=== PATIENT | male | born 1945 | race Caucasian/White ===

== ENCOUNTER 2019-02-26 07:58 | Inpatient (IN) ==
[2019-02-26] MEDS ORDERED: Naloxone 0.4 MG/ML INJ IVP PRN (10:36)
[2019-02-26] MEDS ORDERED: *HR* Dextrose 50 % in Water (Syg) 50 ML SYRINGE IVP PRN (10:41)
[2019-02-26] MEDS ORDERED: Dextrose Gel 15 GM/37.5 ML TUBE PO PRN ×2 (10:41)
[2019-02-26] MEDS ORDERED: D5% in Water 1,000 ML IVC PRN (10:41)
[2019-02-26] MEDS: Furosemide 40 MG/4 ML VIAL IVP SCH (11:30)
--- NOTE | 2019-02-26 12:00 | Pulmonology History & Physical ---
<BiToby Ortega - Last Filed: 02/26/19 17:03> Date of Encounter: 02/26/19 Time of Encounter: 09:45 Assessment and Plan (1) Acute and chronic respiratory failure Current visit: Yes Status: Acute Presented to [place] ED complaining of increased shortness of breath Known COPD on 2lpm O2 at home Also known CHF with severe aortic and mitral stenosis Arrived to [facility] on 5lpm supplemental O2 via oxymask CXR from [place] showed left sided pleural effusion with bilateral pulmonary edema Performed diagnostic and therapeutic thoracentesis with removal of 1200mL straw colored pleural fluid Pt weaned down to 3lpm supplemental O2 at that time At approximately 1350 the patient became acutely confused and combative. This provider evaluated the patient and found him to be alert and oriented only to self. This was a change compared to earlier where he was A&O3 and able to recall previous events. Blood glucose level was checked at bedside and found to be 229. EKG was ordered, with no significant changes, but noted baseline ST segment changes suggestive of previous anterolateral ischemia. Repeat labs were significant for improved leukocytosis to 11.9, and troponin of 0.14 CT head was negative for intracranial abnormality. Repeat ABG showed improved hypercapnia with pCO2 of 47 Pt was started on Rocephin for UTI. Serial troponins ordered. Repeat EKG this evening. Pt denies any current chest pain. Continue supplemental O2. 40mg IV Lasix daily at this time for diuresis Qualifiers: Respiratory failure complication: hypercapnia Qualified Code(s): J96.22 - Acute and chronic respiratory failure with hypercapnia (2) Recurrent left pleural effusion Current visit: Yes Status: Acute Thoracentesis as above Fluid culture pending - preliminary reading showed many WBC, and no bacteria Pleural fluid cytology pending Pleural fluid analysis suggestive of transudative effusion Subsequent CXR showed improvement in left pleural effusion (3) Altered mental status Current visit: Yes Status: Acute Patient became acutely altered at 1350 this afternoon Patient's was at bedside does report patient has intermittent confusion, particularly worse in the evenings and at night Patient's also reports "I have been meaning to talk to her family doctor about this" CT head negative for acute intracranial abnormality as above Labs were repeated which were significant for slightly elevated troponin of 0.14 EKG showed no significant changes when compared to previous. Patient denied any complaints of chest pain May be related to UTI versus hypercapnia versus chronic underlying dementia Receiving 1 g of Rocephin IV daily Patient was initially given 5 mg of Haldol via IV. However patient did not respond to this. EKG also showed QT prolongation at 461 ms. Subsequent sedation consisted of 1 mg [address] We will place prn order for Ativan for further agitation with prolonged QT. Qualifiers: Altered mental status type: unspecified Qualified Code(s): R41.82 - Altered mental status, unspecified (4) CHF exacerbation Current visit: Yes Status: Acute Echo from 11/26/18 which showed LVEF 55% with indeterminate diastolic dysfunction. This echo also demonstrated severe aortic stenosis with possible aortic regurgitation. Moderate mitral stenosis was also appreciated. Diuresis as above Fluid restricted diet 1.5 L fluid. Salt restricted diet Qualifiers: Heart failure type: combined systolic and diastolic Qualified Code(s): I50.43 - Acute on chronic combined systolic (congestive) and diastolic (congestive) heart failure (5) Elevated troponin Current visit: Yes Status: Acute Initial troponin from prior ED was negative, however repeat during episode of confusion was elevated at 0.14 EKG showed no acute changes Patient denied chest pain Suspect this is related to demand ischemia with respiratory failure We will continue to trend and monitor for any chest pain. (6) UTI (urinary tract infection) Current visit: Yes Status: Acute As seen on urinalysis from [facility] Urine culture was sent at [facility] - will await results Initiate Rocephin 1 g daily via IV Qualifiers: Urinary tract infection type: site unspecified Hematuria presence: with hematuria Qualified Code(s): N39.0 - Urinary tract infection, site not specified; R31.9 - Hematuria, unspecified (7) COPD exacerbation Current visit: Yes Status: Acute Suspect related to large left pleural effusion Thoracentesis of the above Scheduled DuoNeb's (8) Anemia Current visit: Yes Status: Chronic Appears chronic Continue to monitor Qualifiers: Anemia type: due to chronic kidney disease Chronic kidney disease stage: stage 3 (moderate) Qualified Code(s): N18.3 - Chronic kidney disease, stage 3 (moderate); D63.1 - Anemia in chronic kidney disease (9) Diabetes Current visit: Yes Status: Chronic Hold home diabetes medication regimen Diabetic diet along with fluid restriction and salt restriction diet. 50 units Levemir at night as patient takes at home Medium dose sliding scale insulin before meals and at bedtime Qualifiers: Diabetes mellitus type: type 2 Diabetes mellitus shelter insulin use: with ferry terminal agent use Diabetes mellitus complication status: with kidney complications Diabetes mellitus complication detail: with chronic kidney disease Chronic kidney disease stage: stage 3 (moderate) Qualified Code(s): E11.22 - Type 2 diabetes mellitus with diabetic chronic kidney disease; N18.3 - Chronic kidney disease, stage 3 (moderate); Z79.4 - terminologist (current) use of insulin (10) Severe aortic stenosis Current visit: Yes Status: Chronic As demonstrated on echocardiogram from 11/26/18 (11) CKD (chronic kidney disease) stage 3, GFR 30-59 ml/min Current visit: Yes Status: Chronic Known history Appears stable with current labs Continue to monitor (12) DVT prophylaxis Current visit: Yes Status: Acute Subcutaneous heparin History of Present Illness Chief complaint: Shortness of breath HPI: Mr. Cross is a 73 year old male with PMH of CHF, severe aortic stenosis, mitral stenosis, COPD, diabetes, CKD stage 3, and follicular lymphoma. He originally presented to [place] ED earlier today complaining of shortness of b reath. During this encounter the patient is A&Ox3 and able to recall all events of the morning. Pt's is at bedside to confirm. Pt states he awoke earlier this morning and felt short of breath. He does report a persistent dry cough. Denies any sputum production. Denied any recent illness, chest pain, headaches, numbness or tingling. He is on 2 L supplemental O2 at home, but subsequently tu rned up the oxygen to 3 L/m to attempt to help with his shortness of breath. However this was unsuccessful and the patient subsequently asked his to take him to the ED. Chest x-ray was obtained at [place] ED which showed a moderate to large left pleural effusion along with pulmonary edema. Labs were significant for a leukocytosis of 6.2, ABG showing hypercapnia with PCO2 71, however pH was 7.33. Chemistries showed stable CKD stage III, normal lactic acid, and negative troponin. BNP was slightly elevated at 611. Urinalysis was suggestive of a UTI with large blood and positive leukocyte esterase, reflex culture was sent to the lab. Upon patient arrival to our facility, he is on 5 L/m home oxygen via Oxy mask. He reports improvement in his shortness of breath. He continues to any chest pain. Reports coughing has resolved at this time. Patient does report he has a history of follicular lymphoma. States his last chemotherapy treatment was approximately 2-3 years ago. He also reports that he had to have some "fluid drained off his abdomen" during that time period but states the drain was pulled approximately 2-3 years ago "because no more fluid was coming out". Past Med Surg Social Fam HX - Past Medical History Medical history: arthritis, cancer, diabetes, hypertension, renal disease, valvular heart disease, other Additional medical history: Follicula lymphoma. 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 Ascites. Hyperuricemia. Hyponatremia. Hyperkalemia. Aortic stenosis. Glueosuria Psychiatric history: no psych history - Past Surgical History Surgical History: other Additional surgical history: eye surg, right wrist surgery, A-PORT, cancer testing - Social History Smoking Status: Former smoker Smokeless Tobacco Status: No Alcohol use: none Drug use: none - Family History Daughter Hx Family Cancer: Yes (Breast) Mother Adopted: No Family Member Ethnicity: Non- Living Status: Still Living Hx Family Cardiac Disorders: Yes (CAD with stents) Hx Family Respiratory Disorders: No Hx Family Cancer: No Hx Family GI Disorders: No Hx Family Endocrine Disorder: Yes Hx Family Neuromuscular Disorders: No Hx Family Neurologic Disorders: No Hx Family HEENT Disorders: No Hx Family Autoimmune Disorders: No Father Adopted: No Family Member Ethnicity: Non- Living Status: Hx Family Cardiac Disorders: No Hx Family Respiratory Disorders: No Hx Family Cancer: Yes (Lung) Hx Family GI Disorders: No Hx Family Endocrine Disorder: No Hx Family Neuromuscular Disorders: No Hx Family Neurologic Disorders: No Hx Family HEENT Disorders: No Hx Family Autoimmune Disorders: No Medications and Allergies Ascorbic Acid [Vitamin C] 1,000 mg PO DAILY 11/06/18 [History] Aspirin 81 mg PO DAILY 11/06/18 [History] Cholecalciferol (D-3) [Vitamin D] 5,000 unit PO DAILY 11/06/18 [History] Docusate [Colace] 100 mg PO BID 11/06/18 [History] Fluticasone/Vilanterol [Breo Ellipta 100-25 Mcg INH] 1 puff IH DAILY 11/06/18 [History] Insulin Glargine,Hum.rec.anlog [Basaglar Kwikpen U-100] 50 unit SQ HS 11/06/18 [History] Insulin Regular, Human [Novolin R] 0 unit SQ TIDWM 11/06/18 [History] Multivitamin [One Daily] 1 tab PO DAILY 11/06/18 [History] Gravelly-3/Dha/Epa/Fish Oil [Fish Oil 1,000 mg Softgel] 1 cap PO BID 11/06/18 [History] Ondansetron HCl [Zofran] 4 mg PO Q6H PRN 11/06/18 [History] Pantoprazole Sodium [Protonix] 40 mg PO DAILY 11/06/18 [History] Prochlorperazine Maleate [Compazine] 10 mg PO Q6HR PRN 11/06/18 [History] Spironolactone [Aldactone] 100 mg PO DAILY 11/06/18 [History] Cinnamon Bark [Cinnamon] 1,000 mg PO DAILY 11/26/18 [History] DiphenhydraMINE [Benadryl] 50 mg PO BID 11/26/18 [History] Gabapentin [Neurontin] 300 mg PO TID 11/26/18 [History] Tamsulosin HCl [Flomax] 0.4 mg PO DAILY 11/26/18 [History] Albuterol Neb [Proventil Neb] 2.5 mg IH Q2H PRN #1 inhsol 12/02/18 [Rx] Nadolol [Corgard] 20 mg PO DAILY #60 tablet 12/02/18 [Rx] Oxycodone HCl 15 mg PO BID 30 Days #60 tablet 02/18/19 [Rx] Furosemide [Lasix] 40 mg PO Q2D 02/26/19 [History] Allergy/AdvReac Type Severity Reaction Status Date / Time band-aids AdvReac Blister Uncoded 12/13/18 14:42 All Systems: The remainder of the systems were reviewed and are negative - Constitutional Constitutional: no chills, no fever(s), no headache(s), no weakness - EENT Eyes: no loss of vision, no photophobia - Cardiovascular Cardiovascular: dyspnea, no chest pain, no diaphoresis, no edema, no irregular heart rhythm, no lightheadedness, no palpitations - Respiratory Respiratory: cough, dyspnea, wheezing, no hemoptysis, no chest congestion, no excessive phlegm production, no change in phlegm color - Gastrointestinal Gastrointestinal: no abdominal pain, no nausea, no vomiting - Genitourinary Genitourinary: no dysuria, no flank pain, no hematuria - Musculoskeletal Musculoskeletal: no weakness, no numbness, no tingling - Integumentary Integumentary: no erythema, no rash, no jaundice - Neurological Neurological: no headache(s), no numbness, no tingling, no weakness - Hematologic/Lymphatic Hematologic/Lymphatic: no easy bleeding, no easy bruising Physical Examination Vital Signs: Vital Signs, Last 4 Hours Temp Pulse Resp BP Pulse Ox 02/26/19 11:47 98.0 F 02/26/19 11:00 62 14 127/63 98 02/26/19 10:30 65 02/26/19 10:00 63 16 137/74 96 02/26/19 09:46 96.8 F L 66 18 135/98 95 General appearance: no acute distress, alert Eyes: nonicteric Effort: normal Inspection: normal Auscultation: bilateral: diminished breath sounds (left > right ) Cardiovascular: regular rate and rhythm Gastrointestinal: soft, non-tender, non-distended Integumentary: normal Extremities: no cyanosis, no edema, no clubbing, pink and warm, pulses normal Musculoskeletal: no deformities normal mental status, non-focal exam, pupils equal and round mood appropriate, affect normal Results - Laboratory Findings CBC and BMP: 02/26/19 14:25 02/26/19 14:25 - Diagnostic Findings Chest x-ray: report reviewed, image reviewed <Ann-Marie Patel - Last Filed: 02/26/19 21:43> Date of Encounter: 02/26/19 History of Present Illness HPI: Mr. Cross is a 73 year old male All Systems: The remainder of the systems were reviewed and are negative Physical Examination Vital Signs: Vital Signs, Last 4 Hours Temp Pulse Resp BP Pulse Ox 02/26/19 19:45 58 02/26/19 19:00 60 16 111/55 97 02/26/19 18:50 98.7 F 02/26/19 18:00 57 15 139/89 95 Results - Laboratory Findings CBC and BMP: 02/26/19 14:25 02/26/19 14:25 ABG ABG pH 7.49 pH Units (7.32-7.45) H 02/26/19 14:23 ABG pCO2 47 mmHg (35-45) H 02/26/19 14:23 ABG pO2 80 mmHg (85-104) L 02/26/19 14:23 ABG O2 Saturation 96 % (95-98) 02/26/19 14:23 Abnormal lab findings: Abnormal lab results WBC 11.9 K/mcL (4.3-11.1) H 02/26/19 14:25 RBC 3.84 M/mcL (4.19-5.50) L 02/26/19 14:25 Hgb 11.3 g/dL (12.9-16.9) L 02/26/19 14:25 Hct 33.9 % (37.5-50.1) L 02/26/19 14:25 ABG pH 7.49 pH Units (7.32-7.45) H 02/26/19 14:23 ABG pCO2 47 mmHg (35-45) H 02/26/19 14:23 ABG pO2 80 mmHg (85-104) L 02/26/19 14:23 ABG HCO3 35 mEq/L (21-27) H 02/26/19 14:23 ABG Total CO2 37 mEq/L (20-26) H 02/26/19 14:23 ABG Base Excess 11 mEq/L (-2 to 3) H 02/26/19 14:23 Sodium 135 mEq/L (136-145) L 02/26/19 14:25 Chloride 93 mEq/L (98-107) L 02/26/19 14:25 Carbon Dioxide 36 mEq/L (23-29) H 02/26/19 14:25 1.40 mg/dL (0.70-1.30) H 02/26/19 14:25 Est GFR (Non-Af Amer) 50 (> 60) L 02/26/19 14:25 Glucose 223 mg/dL (70-105) H 02/26/19 14:25 POC Glucose 192 mg/dL (70-99) H 02/26/19 19:24 139 Units/L (140-271) L 02/26/19 12:14 0.14 ng/mL (< 0.04) H* 02/26/19 14:25 B-Natriuretic Peptide 698 pg/mL (Less than 100) H 02/26/19 14:25 5.8 g/dL (6.4-8.9) L 02/26/19 14:25 2.3 g/dL (2.4-3.5) L 02/26/19 14:25 - Attending Attestation I saw and evaluated this patient and my medical decision-making was reviewed with the Resident Physician. I agree with the documented findings, disposition and treatment plan as described except to the extent set forth below. We independently had [id number] contact with the patient I spent 35 minutes of Critical Care time with this patient. It involved decision making of high complexity to assess, manipulate, and support vital organ system failure and/or to prevent further life threatening deterioration of the patient's condition. The time involved in the performance of separately reportable procedures was not counted toward critical care time. Patient seen and examined at bedside Labs, radiology, chart personally reviewed. Management was reviewed during multidisciplinary critical care rounds. PERFORMANCE IMPROVEMENT ANALYST: Patient was conscious oriented before I did do a thoracentesis during the afternoon patient got acutely confused so history of delirium patient has bas valerio dementia patient got some Haldol which did not respond well patient was put on Ativan as patient is prolonged QT. Patient is CT head that was no acute intracranial abnormality. Pulm: Patient developed acute on chronic hypoxic respiratory failure patient has baseline COPD, diastolic heart failure patient has enlarged left-sided the moderately large pleural effusion patient had a therapeutic thoracentesis with 1.2 L of straw-colored fluid was removed most likely secondary to heart failure. Patient fluid fluid was sent for studies Cards: Patient is similarly stable patient has a severe aortic stenosis with some mitral stenosis with some diastolic heart failure with no pulmonary hypertension. FEN-GI: Advance diet as tolerated Renal: Labs and output were reviewed ID: No evidence of active infection Heme/Onc: Labs reviewed Endo: Glucose Monitored Integ/MSK: Skin Care per routine ICU Nursing Protocol to prevent ulcers. Lines: All lines examined without evidence of infection : Dispo: high chance of respiratory decline we will keep him in the ICU tonight and will send him to medical telemetry tomorrow CODE: Full code
--- NOTE | 2019-02-26 12:02 | Procedure Note ---
<Toby Pat - Last Filed: 02/26/19 12:00> Date of procedure: 02/26/19 Pre-op diagnosis: Left pleural effusion Post-op diagnosis: same Procedure: Date:02/26/19 Time: 1145 Indication: Large pleural effusion Resident: Toby Pat DO Attending: Dr. Patel A time-out was completed verifying correct patient, procedure, site, positioning, and special equipment if applicable. The patients left side was prepped and draped in a sterile manner after the appropriate infiltration level was confirmed by ultrasound. 1% lidocaine was used anesthetize the surrounding skin. A finder needle was then used to locate fluid and clear yellow fluid was obtained. A 10-blade scalpel used to make the incision. The thoracentesis catheter was then threaded without difficulty. The patient had 1200mL of clear yellow fluid removed. Dr Patel was present for the entire procedure. A post- procedure chest x-ray was ordered and the fluid will be sent for several studies. Estimated Blood Loss: 0mL The patient tolerated the procedure well and there were no complications. Anesthesia: local Surgeon: Toby Pat Was there an dietary assistant present: Yes Medicine Man: Ann-Marie Patel Estimated blood loss (cc): 0 Specimen: Pleural fluid Condition: stable Disposition: no change <Ann-Marie Patel - Last Filed: 02/26/19 21:31> Procedure: I was present during the entire procedure and assisted in critical portion of the procedure.
[2019-02-26 12:52] LABS: Lactate Dehydrogenase 139 Units/L (140-271); Total Protein 6.2 g/dL (6.4-8.9)
[2019-02-26 13:49] LABS: RBC,Pleural Fluid < 0.002 M/mcL
[2019-02-26] MEDS ORDERED: Haloperidol Lactate 5 MG/ML VIAL ONE (14:02)
[2019-02-26] MEDS ORDERED: Haloperidol Lactate 5 MG/ML VIAL IVP ONE (14:11)
[2019-02-26 14:26] LABS: ABG Base Excess 11 mEq/L (-2 to 3); ABG HCO3 35 mEq/L (21-27); ABG Oxygen Saturation 96 % (95-98); ABG PCO2 47 mmHg (35-45); ABG PH 7.49 pH Units (7.32-7.45); ABG PO2 80 mmHg (85-104); ABG TCO2 37 mEq/L (20-26)
[2019-02-26 14:40] LABS: Basophils # 0.1 K/mcL (0.0-0.2); Basophils % 0.4 %; Eosinophils % 0.3 %; Hematocrit 33.9 % (37.5-50.1); Hemoglobin 11.3 g/dL (12.9-16.9); Immature Granulocytes % 0.4 % (0-4); Lymphocytes # 1.9 K/mcL (0.6-4.6); Lymphocytes % 15.8 %; Mean Corpuscular HGB Conc 33.3 g/dL (31.6-35.5); Mean Corpuscular Hemoglobin 29.4 pg (28.0-33.3); Mean Corpuscular Volume 88.3 fL (83.0-100.0); Mean Platelet Volume 9.5 fL (9.4-12.4); Monocytes # 1.2 K/mcL (0.0-1.3); Monocytes % 10.3 %; Neutrophils # 8.6 K/mcL (1.6-8.9); Platelet Count 144 K/mcL (140-400); Red Blood Count 3.84 M/mcL (4.19-5.50); Segmented Neutrophils % 72.8 %; White Blood Count 11.9 K/mcL (4.3-11.1)
[2019-02-26] MEDS ORDERED: *HR* LORazepam 2 MG/ML VIAL IVP ONE (14:40)
[2019-02-26 14:58] LABS: Total Protein,Pleural Fluid 3.1 g/dL
[2019-02-26 15:06] LABS: BUN/Creatinine Ratio 13 (6-26); Blood Urea Nitrogen 18 mg/dL (8-23); Calcium 10.3 mg/dL (8.6-10.3); Carbon Dioxide 36 mEq/L (23-29); Chloride 93 mEq/L (98-107); Glucose 223 mg/dL (70-105); Osmolality,Calculated 289 (280-300); Potassium 4.4 mEq/L (3.5-5.1); Sodium 135 mEq/L (136-145); Troponin I 0.14 ng/mL (< 0.04); eGFR For African Americans > 60 (> 60); eGFR For Non-African Americans 50 (> 60)
[2019-02-26 15:18] LABS: Appearance of Pleural Fl Clear (Clear)
[2019-02-26] MEDS: cefTRIAXone 1,000 MG in Water for inj. (sterile) 20 ML 10 ML IVP SCH (15:25)
[2019-02-26] MEDS: Ipratropium/Albuterol Neb 3 ML IH SCH ×2 (15:33→22:31)
[2019-02-26] MEDS ORDERED: *HR* LORazepam 2 MG/ML VIAL IVP PRN (17:41)
[2019-02-26] MEDS: Insulin LISPRO 300 UNITS/3 ML VIAL SQ SCH (17:58)
[2019-02-26 18:01] LABS: Alanine Aminotransferase 7 Units/L (7-52); Albumin 3.5 g/dL (3.5-5.7); Albumin/Globulin Ratio 1.5 (1.1-2.2); Alkaline Phosphatase 43 Units/L (34-104); Aspartate Amino Transferase 17 Units/L (13-39); Bilirubin,Direct 0.1 mg/dL (0.0-0.2); Bilirubin,Indirect 0.6 mg/dL (0.0-1.2); Bilirubin,Total 0.7 mg/dL (0.3-1.0); Globulin 2.3 g/dL (2.4-3.5); Total Protein 5.8 g/dL (6.4-8.9)
[2019-02-26] MEDS ORDERED: Insulin DETEMIR 100 UNIT/ML X5UNITS SQ SCH (21:00)
[2019-02-26] MEDS ORDERED: Insulin LISPRO 300 UNITS/3 ML VIAL SQ SCH (21:00)
[2019-02-26] MEDS: *HR* Heparin 5,000 UNIT/ML VIAL SQ SCH (22:23)
[2019-02-27] MEDS: Ipratropium/Albuterol Neb 3 ML IH SCH ×4 (04:00→22:42)
[2019-02-27] MEDS: *HR* Heparin 5,000 UNIT/ML VIAL SQ SCH ×3 (05:12→21:28)
[2019-02-27 06:32] LABS: Basophils # 0.1 K/mcL (0.0-0.2); Basophils % 0.5 %; Eosinophils # 0.1 K/mcL (0.0-0.6); Hematocrit 35.5 % (37.5-50.1); Hemoglobin 11.5 g/dL (12.9-16.9); Immature Granulocytes % 0.4 % (0-4); Lymphocytes # 1.8 K/mcL (0.6-4.6); Lymphocytes % 17.2 %; Mean Corpuscular HGB Conc 32.4 g/dL (31.6-35.5); Mean Corpuscular Volume 89.4 fL (83.0-100.0); Mean Platelet Volume 9.6 fL (9.4-12.4); Monocytes # 1.2 K/mcL (0.0-1.3); Monocytes % 11.7 %; Neutrophils # 7.2 K/mcL (1.6-8.9); Platelet Count 138 K/mcL (140-400); Red Blood Count 3.97 M/mcL (4.19-5.50); Red Cell Distribution Width 13.1 % (11.5-14.5); Segmented Neutrophils % 69.2 %; White Blood Count 10.4 K/mcL (4.3-11.1)
--- NOTE | 2019-02-27 06:54 | Pulmonology Progress Note ---
<ScottPatrick S - Last Filed: 02/27/19 10:37> Date of Encounter: 02/27/19 Time of Encounter: 08:03 Assessment and Plan (1) Acute and chronic respiratory failure Current Visit: Yes Status: Acute Pt presented to [facility] on 02/26 with shortness of breath as a [place] transfer - known hx of COPD on 2L home oxygen - also known hx of CHF with severe and MS XR chest at [place] showed left sided pleural effusion with bilateral pulmonary edema Once arrived to [facility], he had diagnostic thoracentesis 1200cc straw colored pleural fluid removed Per Light's criteria, the pleural effusion meets one of Light's criteria vs psuedoexudative from recent diuretics Plan: - awaiting cytology results from thoracentesis - continue supplemental O2 to keep O2 sat >88% - telemetry monitoring - VS per unit protocol - duonebs prn - continue 40mg IVP lasix - plan for today is to move the pt out of the ICU to a step down unit or telemetry floor Qualifiers: Respiratory failure complication: hypercapnia Qualified Code(s): J96.22 - Acute and chronic respiratory failure with hypercapnia (2) Congestive heart failure Current Visit: Yes Status: Acute Acute exacerbation of CHF Echo from 11/26/18 which showed LVEF 55% with indeterminate diastolic dysfunction - demonstrated severe aortic stenosis with possible aortic regurgitation - Moderate mitral stenosis was also appreciated. Plan: - Diuresis as above - Fluid restricted diet 1.5 L fluid. - Salt restricted diet - cardiology consulted due to missed beats noticed on EKG Qualifiers: Heart failure type: unspecified Heart failure chronicity: acute on chronic Qualified Code(s): I50.9 - Heart failure, unspecified (3) Severe aortic stenosis Current Visit: No Status: Chronic Noted on ECHO previously. (4) COPD exacerbation Current Visit: Yes Status: Acute See plan as above for acute on chronic respiratory failure. Improving. Nearly returned to baseline oxygen demand. (5) Type 2 diabetes mellitus Current Visit: No Status: Chronic Hold home diabetes medication regimen. Diabetic diet along with fluid restriction and salt restriction diet. Hold 50 units Levemir at night that kosta whitten takes at home as he isnt eating much Medium dose sliding scale insulin before meals and at bedtime Qualifiers: Diabetes mellitus halfway insulin use: with halfway use Diabetes mellitus complication status: with circulatory complication Diabetes mellitus complication detail: with other circulatory complications Qualified Code(s): E11.59 - Type 2 diabetes mellitus with other circulatory complications; Z79.4 - penitentiary (current) use of insulin (6) DVT prophylaxis Current Visit: Yes Status: Acute sq heparin (7) Follicular lymphoma Current Visit: No Status: Chronic Chronic. Went thru chemotherapy. Qualifiers: Follicular lymphoma grade: unspecified grade Lymphoma site: unspecified region Qualified Code(s): C82.90 - Follicular lymphoma, unspecified, uns pecified site (8) Acute metabolic encephalopathy Current Visit: Yes Status: Acute Appears to be around his baseline, as described by . CT head negative. EKG does show QTc prolongation, avoid QTc prolonging agents. Ativan given prn. Pt has not become combative again. Likely due to underlying infxn vs ?baseline (9) Recurrent left pleural effusion Current Visit: Yes Status: Acute Likely contributing to respiratory failure. Drained at bedside. See above. (10) UTI (urinary tract infection) Current Visit: Yes Status: Acute UA (+) large blood, leukocyte esterase, WBC. On rocephin day 2. Cultures pending (look from [place] and previous visits as they were collected there). Qualifiers: Urinary tract infection type: site unspecified Hematuria presence: with hematuria Qualified Code(s): N39.0 - Urinary tract infection, site not specified; R31.9 - Hematuria, unspecified Subjective Principal diagnosis: acute and chronic respiratory failure Interval history: Pt seen at bedside this morning. He is without complaint. He does appear to be confused, however, this is reportedly his baseline per the . Objective PUL Vital signs: Last Vital Signs Temp 97.2 F L 02/27/19 03:39 Pulse 67 02/27/19 06:00 Resp 18 02/27/19 06:00 BP 123/74 02/27/19 06:00 Pulse Ox 93 02/27/19 06:00 General appearance: no acute distress Eyes: nonicteric ENT: oropharynx dry Effort: mildly labored Auscultation: bilateral: diminished breath sounds Cardiovascular: regular rate and rhythm Gastrointestinal: soft, non-tender, non-distended Integumentary: normal Extremities: no cyanosis, no edema, no clubbing, pink and warm Musculoskeletal: no deformities normal mental status, non-focal exam anxious Results - Laboratory Findings CBC and BMP: 02/27/19 06:19 02/27/19 06:19 ABG ABG pH 7.49 pH Units (7.32-7.45) H 02/26/19 14:23 ABG pCO2 47 mmHg (35-45) H 02/26/19 14:23 ABG pO2 80 mmHg (85-104) L 02/26/19 14:23 ABG O2 Saturation 96 % (95-98) 02/26/19 14:23 Abnormal lab findings: Abnormal lab results WBC 11.9 K/mcL (4.3-11.1) H 02/26/19 14:25 RBC 3.97 M/mcL (4.19-5.50) L 02/27/19 06:19 Hgb 11.5 g/dL (12.9-16.9) L 02/27/19 06:19 Hct 35.5 % (37.5-50.1) L 02/27/19 06:19 Plt Count 138 K/mcL (140-400) L 02/27/19 06:19 ABG pH 7.49 pH Units (7.32-7.45) H 02/26/19 14:23 ABG pCO2 47 mmHg (35-45) H 02/26/19 14:23 ABG pO2 80 mmHg (85-104) L 02/26/19 14:23 ABG HCO3 35 mEq/L (21-27) H 02/26/19 14:23 ABG Total CO2 37 mEq/L (20-26) H 02/26/19 14:23 ABG Base Excess 11 mEq/L (-2 to 3) H 02/26/19 14:23 Sodium 135 mEq/L (136-145) L 02/26/19 14:25 Chloride 93 mEq/L (98-107) L 02/26/19 14:25 Carbon Dioxide 36 mEq/L (23-29) H 02/26/19 14:25 1.40 mg/dL (0.70-1.30) H 02/26/19 14:25 Est GFR (Non-Af Amer) 50 (> 60) L 02/26/19 14:25 Glucose 223 mg/dL (70-105) H 02/26/19 14:25 POC Glucose 192 mg/dL (70-99) H 02/26/19 19:24 139 Units/L (140-271) L 02/26/19 12:14 0.10 ng/mL (< 0.04) H* 02/26/19 23:47 B-Natriuretic Peptide 698 pg/mL (Less than 100) H 02/26/19 14:25 5.8 g/dL (6.4-8.9) L 02/26/19 14:25 2.3 g/dL (2.4-3.5) L 02/26/19 14:25 - Microbiology Findings Microbiology Findings: Microbiology, Last 48 Hours 02/26/19 11:50 Body Fluid Culture - Preliminary Pleural Fluid - Clinical Findings Intake & Output: Intake & Output 02/26/19 02/26/19 02/27/19 15:59 23:59 07:59 Intake Total 130 / 130 Output Total 750 / 1400 650 / 1400 325 / 325 Balance -620 / -1270 -650 / -1270 -325 / -325 Weight 93.3 kg 95.5 kg Consult Discharge Plan - Plan Referrals: NONE,PCP [Primary Care Provider] - <Ann-Marie Patel - Last Filed: 02/27/19 22:04> Date of Encounter: 02/27/19 Objective PUL Vital signs: Last Vital Signs Temp 98.4 F 02/27/19 20:27 Pulse 78 02/27/19 20:27 Resp 16 02/27/19 20:27 BP 120/58 02/27/19 20:27 Pulse Ox 96 02/27/19 20:27 Results - Laboratory Findings CBC and BMP: 02/27/19 06:19 02/27/19 06:19 ABG ABG pH 7.49 pH Units (7.32-7.45) H 02/26/19 14:23 ABG pCO2 47 mmHg (35-45) H 02/26/19 14:23 ABG pO2 80 mmHg (85-104) L 02/26/19 14:23 ABG O2 Saturation 96 % (95-98) 02/26/19 14:23 Abnormal lab findings: Abnormal lab results WBC 11.9 K/mcL (4.3-11.1) H 02/26/19 14:25 RBC 3.97 M/mcL (4.19-5.50) L 02/27/19 06:19 Hgb 11.5 g/dL (12.9-16.9) L 02/27/19 06:19 Hct 35.5 % (37.5-50.1) L 02/27/19 06:19 Plt Count 138 K/mcL (140-400) L 02/27/19 06:19 ABG pH 7.49 pH Units (7.32-7.45) H 02/26/19 14:23 ABG pCO2 47 mmHg (35-45) H 02/26/19 14:23 ABG pO2 80 mmHg (85-104) L 02/26/19 14:23 ABG HCO3 35 mEq/L (21-27) H 02/26/19 14:23 ABG Total CO2 37 mEq/L (20-26) H 02/26/19 14:23 ABG Base Excess 11 mEq/L (-2 to 3) H 02/26/19 14:23 Sodium 135 mEq/L (136-145) L 02/26/19 14:25 Chloride 92 mEq/L (98-107) L 02/27/19 06:19 Carbon Dioxide 40 mEq/L (23-29) H* 02/27/19 06:19 1.51 mg/dL (0.70-1.30) H 02/27/19 06:19 Est GFR ( Amer) 55 (> 60) L 02/27/19 06:19 Est GFR (Non-Af Amer) 45 (> 60) L 02/27/19 06:19 Glucose 189 mg/dL (70-105) H 02/27/19 06:19 POC Glucose 192 mg/dL (70-99) H 02/26/19 19:24 139 Units/L (140-271) L 02/26/19 12:14 0.07 ng/mL (< 0.04) H* 02/27/19 06:19 B-Natriuretic Peptide 698 pg/mL (Less than 100) H 02/26/19 14:25 6.2 g/dL (6.4-8.9) L 02/27/19 06:19 2.3 g/dL (2.4-3.5) L 02/26/19 14:25 - Microbiology Findings Microbiology Findings: Microbiology, Last 48 Hours 02/26/19 11:50 Body Fluid Culture - Preliminary Pleural Fluid - Clinical Findings Intake & Output: Intake & Output 02/27/19 02/27/19 02/27/19 07:59 15:59 23:59 Intake Total 240 / 480 240 / 480 Output Total 325 / 325 Balance -325 / 155 240 / 155 240 / 155 - Attending Attestation - Attending Attestation I saw and evaluated this patient and my medical decision-making was reviewed with the Resident Physician. I agree with the documented findings, disposition and treatment plan as described except to the extent set forth below. We independently had [id number] contact with the patient Patient seen and examined at bedside Labs, radiology, chart personally reviewed. Management was reviewed during multidisciplinary critical care rounds. PRIZE FIGHTER: Patient was conscious oriented before I did do a thoracentesis during the afternoon patient got acutely confused so history of delirium patient has baseline dementia patient got some Haldol which did not respond well patient was put on Ativan as patient is prolonged QT. Patient is CT head that was no acute intracranial abnormality. 02/27 patient is more conscious and alert and oriented 2 has episodic agitation and delirium in the background of dementia Pulm: Patient developed acute on chronic hypoxic respiratory failure patient has baseline COPD, diastolic heart failure patient has enlarged left-sided the moderately large pleural effusion patient had a therapeutic thoracentesis with 1.2 L of straw-colored fluid was removed most likely secondary to heart failure. Patient fluid fluid was sent for studies 02/27 patient V/Q mismatch is more acceptable after thoracentesis pleural fluid more considered consistent with pseudo exudative since patient received diuresis before thoracentesis Cards: Patient is hemodynamically stable patient has a severe aortic stenosis with some mitral stenosis with some diastolic heart failure with no pulmonary hypertension. FEN-GI: Advance diet as tolerated Renal: Labs and output were reviewed ID: No evidence of active infection Heme/Onc: Labs reviewed Endo: Glucose Monitored Integ/MSK: Skin Care per routine ICU Nursing Protocol to prevent ulcers. Lines: All lines examined without evidence of infection : Dispo: Transferred to Medical Telemetry CODE: Full code
[2019-02-27 06:57] LABS: Albumin 3.7 g/dL (3.5-5.7); Albumin/Globulin Ratio 1.5 (1.1-2.2); Bilirubin,Total 0.7 mg/dL (0.3-1.0); Calcium 10.1 mg/dL (8.6-10.3); Globulin 2.5 g/dL (2.4-3.5); Potassium 4.3 mEq/L (3.5-5.1); Total Protein 6.2 g/dL (6.4-8.9)
[2019-02-27] MEDS: Furosemide 40 MG/4 ML VIAL IVP SCH (08:30)
[2019-02-27] MEDS: cefTRIAXone 1,000 MG in Water for inj. (sterile) 20 ML 10 ML IVP SCH (08:31)
[2019-02-27] MEDS: Insulin LISPRO 300 UNITS/3 ML VIAL SQ SCH ×4 (08:33→21:39)
--- NOTE | 2019-02-27 10:43 | Event Note ---
Date of Encounter: 02/27/19 Time of Encounter: 10:41 - Cardiology Event Note Cardiology consulted for "missed beats" on telemetry and ECG changes. Discussed and reviewed with Dr. Uriostegui. Telemetry reviewed. SR with occasional pauses, all less than 1.8 seconds, which is not concerning. ECG reviewed and is similar if not improved compared to 2018. There are no acute ischemic changes. Cardiology signing off. Reconsult PRN. Please call for any concerns or questions.
[2019-02-27] MEDS ORDERED: Naloxone 0.4 MG/ML INJ IVP PRN (13:13)
[2019-02-27] MEDS ORDERED: Dextrose Gel 15 GM/37.5 ML TUBE PO PRN ×2 (13:13)
[2019-02-27] MEDS ORDERED: D5% in Water 1,000 ML IVC PRN (13:13)
[2019-02-27] MEDS ORDERED: *HR* Dextrose 50 % in Water (Syg) 50 ML SYRINGE IVP PRN (13:13)
--- NOTE | 2019-02-27 18:30 | Electrocardiograph Report ---
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
--- NOTE | 2019-02-27 18:59 | Electrocardiograph Report ---
[place] [address] Test Date: 2019-02-26 Pat Name: Chalo Cross Department: 109 Room: [facility] Gender: M Automatic Glove Former: : 1945 Requested By: Toby Pat Order Number: [id number] Reading MD: Olga Watters Measurements Intervals [place] Rate: 56 P: 31 OK: 226 QRS: -19 QRSD: 93 T: 139 QT: 464 QTc: 457 Interpretive Statements SINUS BRADYCARDIA WITH FIRST DEGREE AV BLOCK LEFT VENTRICULAR HYPERTROPHY AND ST-T CHANGE Electronically Signed On 02-27-2019 18:57:43 EDT by Olga Watters
[2019-02-27] MEDS: *HR* LORazepam 2 MG/ML VIAL IVP PRN (21:28)
[2019-02-28] MEDS: Ipratropium/Albuterol Neb 3 ML IH SCH ×4 (03:51→22:25)
[2019-02-28] MEDS: *HR* Heparin 5,000 UNIT/ML VIAL SQ SCH ×3 (05:46→22:08)
[2019-02-28] MEDS: Insulin LISPRO 300 UNITS/3 ML VIAL SQ SCH ×4 (07:58→20:52)
[2019-02-28] MEDS: cefTRIAXone 1,000 MG in Water for inj. (sterile) 20 ML 10 ML IVP SCH (07:58)
[2019-02-28] MEDS: Furosemide 40 MG/4 ML VIAL IVP SCH (07:58)
--- NOTE | 2019-02-28 08:13 | Internal Med Progress Note ---
Hospitalist Progress Note - Encounter Date of Encounter: 02/28/19 Time of Encounter: 09:00 - Subjective Interval History: Transferred out of the ICU to the floor overnight - Exam Vitals: Temp Pulse Resp BP Pulse Ox 98.5 F 71 16 133/81 92 02/28/19 07:24 02/28/19 07:24 02/28/19 07:24 02/28/19 07:24 02/28/19 07:24 Exam: Gen.NAD CVS. S1 S2 WNL 3/6 systolic murmur Resp. CTAB GI. Soft, NT, ND +BS EXt. trace pedal edema GCS 15 - Assessment and Plan (1) Acute and chronic respiratory failure Current Visit: Yes Status: Acute Assessment and Plan: Pt has acute worsening of chronic respiratory failure likely secondary to acute worsening of chronic diastolic CHF Continue lasix. Monitor ins and outs. S/p thoracentesis in ICU with removal of 1.2 L of fluid (2) CKD (chronic kidney disease) stage 3, GFR 30-59 ml/min Current Visit: Yes Status: Chronic Assessment and Plan: Monitor creatinine with diuresis. Stable (3) Diabetes Current Visit: Yes Status: Chronic Assessment and Plan: Continue insulin and monitor fingersticks (4) Elevated troponin Current Visit: Yes Status: Acute Assessment and Plan: Likely 2/2 to demand ischemia. No further intervention (5) Recurrent left pleural effusion Current Visit: Yes Status: Acute Assessment and Plan: Likely secondary to CHF. s/p thoracentesis. Continue lasix (6) Severe aortic stenosis Current Visit: Yes Status: Chronic Assessment and Plan: Patient not a surgical candidate for aortic valve repair/ replacement Continue diuresis with lasix (7) CHF exacerbation Current Visit: Yes Status: Acute Assessment and Plan: Acute worsening of chronic diastolic CHF Continue diuresis with lasix (8) COPD exacerbation Current Visit: Yes Status: Acute Assessment and Plan: Continue nebs and ceftriaxone (9) UTI (urinary tract infection) Current Visit: Yes Status: Acute Assessment and Plan: On ceftriaxone (10) DVT prophylaxis Current Visit: Yes Status: Acute Assessment and Plan: On heparin - Time Spent with Patient Total time spent is greater than 50% in coordination of care (as documented) at patient's floor/unit and/or counseling patient: Internal Medicine: Result - Labs CBC & Chem 7: 02/27/19 06:19 02/27/19 06:19 - ABG Interpretation ABG results: ABG ABG pH 7.49 pH Units (7.32-7.45) H 02/26/19 14:23 ABG pCO2 47 mmHg (35-45) H 02/26/19 14:23 ABG pO2 80 mmHg (85-104) L 02/26/19 14:23 ABG O2 Saturation 96 % (95-98) 02/26/19 14:23 Consult Discharge Plan - Plan Referrals: NONE,PCP [Primary Care Provider] - (1) Acute and chronic respiratory failure Qualifiers: Respiratory failure complication: hypercapnia Qualified Code(s): J96.22 - Acute and chronic respiratory failure with hypercapnia (3) Diabetes Qualifiers: Diabetes mellitus type: type 2 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: with 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 nursing use Diabetes mellitus complication status: with kidney complications Diabetes mellitus complication detail: with chronic kidney disease Chronic kidney disease stage: stage 3 (moderate) Qualified Code(s): E11.22 - Type 2 diabetes mellitus with diabetic chronic kidney disease; N18.3 - Chronic kidney disease, stage 3 (moderate); Z79.4 - [facility] (current) use of insulin (7) CHF exacerbation Qualifiers: Heart failure type: combined systolic and diastolic Qualified Code(s): I50.43 - Acute on chronic combined systolic (congestive) and diastolic (congestive) heart failure (9) UTI (urinary tract infection) Qualifiers: Urinary tract infection type: site unspecified Hematuria presence: with hematuria Qualified Code(s): N39.0 - Urinary tract infection, site not specified; R31.9 - Hematuria, unspecified
[2019-02-28] MEDS ORDERED: Ondansetron ODT 4 MG TAB.RAPDIS SL PRN (15:46)
[2019-02-28] MEDS: Insulin DETEMIR 100 UNIT/ML X5UNITS SQ SCH (20:47)
[2019-02-28] MEDS: *HR* LORazepam 2 MG/ML VIAL IVP PRN (22:08)
[2019-03-01] MEDS: *HR* LORazepam 2 MG/ML VIAL IVP PRN ×2 (04:16→21:07)
[2019-03-01] MEDS: Ipratropium/Albuterol Neb 3 ML IH SCH ×4 (04:41→21:51)
[2019-03-01 06:22] LABS: Basophils # 0.1 K/mcL (0.0-0.2); Basophils % 0.7 %; Eosinophils # 0.1 K/mcL (0.0-0.6); Eosinophils % 1.4 %; Hematocrit 34.3 % (37.5-50.1); Hemoglobin 11.3 g/dL (12.9-16.9); Immature Granulocytes % 0.4 % (0-4); Lymphocytes % 19.3 %; Mean Corpuscular HGB Conc 32.9 g/dL (31.6-35.5); Mean Corpuscular Hemoglobin 29.7 pg (28.0-33.3); Mean Platelet Volume 9.5 fL (9.4-12.4); Monocytes # 1.4 K/mcL (0.0-1.3); Monocytes % 13.6 %; Neutrophils # 6.7 K/mcL (1.6-8.9); Platelet Count 154 K/mcL (140-400); Red Blood Count 3.81 M/mcL (4.19-5.50); Red Cell Distribution Width 13.1 % (11.5-14.5); Segmented Neutrophils % 64.6 %; White Blood Count 10.3 K/mcL (4.3-11.1)
[2019-03-01] MEDS: *HR* Heparin 5,000 UNIT/ML VIAL SQ SCH ×3 (06:23→21:06)
[2019-03-01 06:42] LABS: Calcium 10.1 mg/dL (8.6-10.3); Magnesium 1.8 mg/dL (1.6-2.6); Phosphorous 3.7 mg/dL (2.7-4.5); Potassium 3.8 mEq/L (3.5-5.1)
[2019-03-01] MEDS: Insulin LISPRO 300 UNITS/3 ML VIAL SQ SCH ×4 (08:41→21:08)
[2019-03-01] MEDS: cefTRIAXone 1,000 MG in Water for inj. (sterile) 20 ML 10 ML IVP SCH (08:41)
[2019-03-01] MEDS: Furosemide 40 MG/4 ML VIAL IVP SCH (08:42)
--- NOTE | 2019-03-01 09:47 | Internal Med Progress Note ---
Hospitalist Progress Note - Encounter Date of Encounter: 03/01/19 Time of Encounter: 13:00 - Subjective Interval History: Lethargic this am - Exam Vitals: Temp Pulse Resp BP Pulse Ox 98.3 F 66 18 125/73 97 03/01/19 07:32 03/01/19 07:32 03/01/19 07:32 03/01/19 07:32 03/01/19 07:32 Exam: Gen.NAD CVS. S1 S2 WNL 3/6 systolic murmur Resp. decreased breath sounds GI. Soft, NT, ND +BS EXt. trace pedal edema GCS 15 - Assessment and Plan (1) Acute and chronic respiratory failure Current Visit: Yes Status: Acute Assessment and Plan: Pt has acute worsening of chronic respiratory failure likely secondary to acute worsening of chronic diastolic CHF Continue lasix. Monitor ins and outs. S/p thoracentesis in ICU with removal of 1.2 L of fluid (2) COPD exacerbation Current Visit: Yes Status: Acute Assessment and Plan: Pt had lethargy this am. ABG showed PCO2 of [address] on BIPAP, iv steroids, round the clock nebs and antibiotics (3) CKD (chronic kidney disease) stage 3, GFR 30-59 ml/min Current Visit: Yes Status: Chronic Assessment and Plan: Monitor creatinine with diuresis. Stable (4) Diabetes Current Visit: Yes Status: Chronic Assessment and Plan: Continue insulin and monitor fingersticks (5) Elevated troponin Current Visit: Yes Status: Acute Assessment and Plan: Likely 2/2 to demand ischemia. No further intervention (6) Recurrent left pleural effusion Current Visit: Yes Status: Acute Assessment and Plan: Likely secondary to CHF. s/p thoracentesis. Continue lasix (7) Severe aortic stenosis Current Visit: Yes Status: Chronic Assessment and Plan: Patient not a surgical candidate for aortic valve repair/ replacement Continue diuresis with lasix (8) CHF exacerbation Current Visit: Yes Status: Acute Assessment and Plan: Acute worsening of chronic diastolic CHF Continue diuresis with lasix (9) UTI (urinary tract infection) Current Visit: Yes Status: Acute Assessment and Plan: On ceftriaxone (10) DVT prophylaxis Current Visit: Yes Status: Acute Assessment and Plan: On heparin - Time Spent with Patient Total time spent is greater than 50% in coordination of care (as documented) at patient's floor/unit and/or counseling patient: Internal Medicine: Result - Labs CBC & Chem 7: 03/01/19 05:04 03/01/19 05:04 Labs: Short CBC 03/01/19 Range/Units 05:04 WBC 10.3 (4.3-11.1) K/mcL Hgb 11.3 L (12.9-16.9) g/dL Hct 34.3 L (37.5-50.1) % Plt Count 154 (140-400) K/mcL Neutrophils # 6.7 (1.6-8.9) K/mcL BMP 03/01/19 05:04 Sodium 137 Potassium 3.8 Chloride 93 L Carbon Dioxide 34 H BUN 21 Creatinine 1.47 H Glucose 159 H Calcium 10.1 - ABG Interpretation ABG results: ABG ABG pH 7.49 pH Units (7.32-7.45) H 02/26/19 14:23 ABG pCO2 47 mmHg (35-45) H 02/26/19 14:23 ABG pO2 80 mmHg (85-104) L 02/26/19 14:23 ABG O2 Saturation 96 % (95-98) 02/26/19 14:23 Consult Discharge Plan - Plan Referrals: NONE,PCP [Primary Care Provider] - (1) Acute and chronic respiratory failure Qualifiers: Respiratory failure complication: hypercapnia Qualified Code(s): J96.22 - Acute and chronic respiratory failure with hypercapnia (4) Diabetes Qualifiers: Diabetes mellitus type: type 2 Diabetes mellitus buttermaker insulin use: with buttermaker use Diabetes mellitus complication status: with kidney complications Diabetes mellitus complication detail: with chronic kidney disease Chronic kidney disease stage: stage 3 (moderate) Qualified Code(s): E11.22 - Type 2 diabetes mellitus with diabetic chronic kidney disease; N18.3 - Chronic kidney disease, stage 3 (moderate); Z79.4 - intermediate card tender (current) use of insulin (8) CHF exacerbation Qualifiers: Heart failure type: combined systolic and diastolic Qualified Code(s): I50.43 - Acute on chronic combined systolic (congestive) and diastolic (congestive) heart failure (9) UTI (urinary tract infection) Qualifiers: Urinary tract infection type: site unspecified Hematuria presence: with hematuria Qualified Code(s): N39.0 - Urinary tract infection, site not specified; R31.9 - Hematuria, unspecified
[2019-03-01 11:22] LABS: ABG Base Excess 11 mEq/L (-2 to 3); ABG HCO3 38 mEq/L (21-27); ABG Oxygen Saturation 98 % (95-98); ABG PCO2 62 mmHg (35-45); ABG PO2 106 mmHg (85-104); ABG TCO2 40 mEq/L (20-26)
[2019-03-01] MEDS ORDERED: Azithromycin 500 MG in D5% in Water 250 ML IVPB SCH (13:00)
[2019-03-01] MEDS: MethylPREDNISolone 40 MG/ML VIAL IVP SCH ×2 (13:42→21:06)
[2019-03-01] MEDS: Budesonide/Formoterol 160/4.5 1 PUFF INH IH SCH ×2 (15:21→21:51)
[2019-03-01] MEDS: Neosporin OINT 15 GM TUBE TP SCH ×2 (16:25→21:09)
[2019-03-01] MEDS: Insulin DETEMIR 100 UNIT/ML X5UNITS SQ SCH (21:06)
[2019-03-02] MEDS: Ipratropium/Albuterol Neb 3 ML IH SCH ×2 (03:40→10:48)
[2019-03-02] MEDS: *HR* Heparin 5,000 UNIT/ML VIAL SQ SCH (05:29)
[2019-03-02] MEDS: MethylPREDNISolone 40 MG/ML VIAL IVP SCH (05:29)
[2019-03-02 05:43] LABS: Basophils % 0.2 %; Hematocrit 33.1 % (37.5-50.1); Hemoglobin 11.3 g/dL (12.9-16.9); Immature Granulocytes % 0.7 % (0-4); Lymphocytes # 1.6 K/mcL (0.6-4.6); Lymphocytes % 15.7 %; Mean Corpuscular HGB Conc 34.1 g/dL (31.6-35.5); Mean Corpuscular Hemoglobin 29.4 pg (28.0-33.3); Mean Platelet Volume 9.8 fL (9.4-12.4); Monocytes # 0.4 K/mcL (0.0-1.3); Monocytes % 3.8 %; Neutrophils # 8.2 K/mcL (1.6-8.9); Platelet Count 165 K/mcL (140-400); Red Blood Count 3.85 M/mcL (4.19-5.50); Red Cell Distribution Width 12.9 % (11.5-14.5); Segmented Neutrophils % 79.6 %; White Blood Count 10.3 K/mcL (4.3-11.1)
[2019-03-02 06:00] LABS: Magnesium 1.8 mg/dL (1.6-2.6); Phosphorous 3.6 mg/dL (2.7-4.5); Potassium 4.2 mEq/L (3.5-5.1)
[2019-03-02 06:38] VITALS: BP 132/51
[2019-03-02] MEDS: cefTRIAXone 1,000 MG in Water for inj. (sterile) 20 ML 10 ML IVP SCH (08:08)
[2019-03-02] MEDS: Insulin LISPRO 300 UNITS/3 ML VIAL SQ SCH (08:09)
[2019-03-02] MEDS: Furosemide 40 MG/4 ML VIAL IVP SCH (08:09)
[2019-03-02] MEDS: Neosporin OINT 15 GM TUBE TP SCH (08:20)
--- NOTE | 2019-03-02 10:21 | Discharge Summary ---
Date of Encounter: 03/02/19 Time of Encounter: 10:00 - Discharge Diagnosis (1) Acute and chronic respiratory failure Priority: Primary Status: Acute Assessment and Plan: 73 year old male with PMH of CHF, severe aortic stenosis, mitral stenosis, COPD, diabetes, CKD stage 3, and follicular lymphoma. He originally presented to [facility] ED earlier today complaining of shortness of breath. During this encounter the patient is A&Ox3 and able to recall all events of the morning. Pt's is at bedside to confirm. Pt states he awoke earlier this morning and felt short of breath. He does report a persistent dry cough. Denies any sputum production. Denied any recent illness, chest pain, headaches, numbness or tingling. He is on 2 L supplemental O2 at home, but subsequently turned up the oxygen to 3 L/m to attempt to help with his shortness of breath. However this was unsuccessful and the patient subsequently asked his to take him to the ED. Pt has acute worsening of chronic respiratory failure likely secondary to acute worsening of chronic diastolic CHF and COPD exacerbation. He underwent a thoracentesis in ICU with removal of 1.2 L of transudative fluid likely secondary to CHF. The rest of his hospital course was uneventful and he improved on lasix, nebs, steroids and antibiotics. He was discharged in a stable condition. 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 Diabetes mellitus complication status: with kidney complications Diabetes mellitus complication detail: with chronic kidney disease Chronic kidney disease stage: stage 3 (moderate) Qualified Code(s): E11.22 - Type 2 diabetes mellitus with diabetic chronic kidney disease; N18.3 - Chronic kidney disease, stage 3 (moderate); 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 (5) Elevated troponin Priority: Primary Status: Acute (6) Recurrent left pleural effusion Priority: Primary Status: Acute (7) Severe aortic stenosis Priority: Primary Status: Chronic (8) CHF exacerbation Priority: Primary Status: Acute Qualifiers: Heart failure type: combined systolic and diastolic Qualified Code(s): I50.43 - Acute on chronic combined systolic (congestive) and diastolic (congestive) heart failure (9) UTI (urinary tract infection) Priority: Primary Status: Acute Qualifiers: Urinary tract infection type: site unspecified Hematuria presence: with hematuria Qualified Code(s): N39.0 - Urinary tract infection, site not specified; R31.9 - Hematuria, unspecified (10) DVT prophylaxis Priority: Primary Status: Acute Hospital course: Mr. Cross is a 73 year old male - Time Spent with Patient Total time spent providing and/or coordinating discharge services: - Discharge Medications Prescriptions: New Insulin DETEMIR [Levemir] 20 unit SQ HS 30 Days #100 [id number] predniSONE [PredniSONE] 40 mg PO DAILY 3 Days #6 tablet Continued Aspirin 81 mg PO DAILY Docusate [Colace] 100 mg PO BID Fluticasone/Vilanterol [Breo Ellipta 100-25 Mcg INH] 1 puff IH DAILY Insulin Regular, Human [Novolin R] 0 unit SQ TIDWM Multivitamin [One Daily] 1 tab PO DAILY Ondansetron HCl [Zofran] 4 mg PO Q6H PRN PRN Reason: Nausea Pantoprazole Sodium [Protonix] 40 mg PO DAILY Spironolactone [Aldactone] 100 mg PO DAILY Tamsulosin HCl [Flomax] 0.4 mg PO DAILY Albuterol Neb [Proventil Neb] 2.5 mg IH Q2H PRN #1 inhsol PRN Reason: Shortness Of Breath/Wheezing Oxycodone HCl 15 mg PO BID 30 Days #60 tablet Albuterol Sulfate [Ventolin Hfa] 2 puff PO Q4H PRN PRN Reason: Shortness Of Breath Ascorbate Calcium [Vitamin C] 500 mg PO DAILY Cholecalciferol (Vitamin D3) [Dialyvite Vitamin D] 5,000 units PO DAILY Guaifenesin [Mucinex] 600 mg PO BID PRN PRN Reason: Congestion Nadolol 20 mg PO DAILY [place]-3S/Dha/Epa/Fish Oil [Fish Oil 1,200 mg Softgel] 1,200 mg PO DAILY Omeprazole [PriLOSEC] 20 mg PO DAILY DiphenhydraMINE [Benadryl] 50 mg PO BID Gabapentin [Neurontin] 300 mg PO TID Cinnamon Bark [Cinnamon] 1,000 mg PO DAILY Changed Furosemide [Lasix] 40 mg PO DAILY 30 Days #30 Discontinued Insulin Glargine,Hum.rec.anlog [Basaglar Kwikpen U-100] 50 unit SQ HS Home Medications: Aspirin 81 mg PO DAILY 11/06/18 [History] Docusate [Colace] 100 mg PO BID 11/06/18 [History] Fluticasone/Vilanterol [Breo Ellipta 100-25 Mcg INH] 1 puff IH DAILY 11/06/18 [History] Insulin Regular, Human [Novolin R] 0 unit SQ TIDWM 11/06/18 [History] Multivitamin [One Daily] 1 tab PO DAILY 11/06/18 [History] Ondansetron HCl [Zofran] 4 mg PO Q6H PRN 11/06/18 [History] Pantoprazole Sodium [Protonix] 40 mg PO DAILY 11/06/18 [History] Spironolactone [Aldactone] 100 mg PO DAILY 11/06/18 [History] Cinnamon Bark [Cinnamon] 1,000 mg PO DAILY 11/26/18 [History] DiphenhydraMINE [Benadryl] 50 mg PO BID 11/26/18 [History] Gabapentin [Neurontin] 300 mg PO TID 11/26/18 [History] Tamsulosin HCl [Flomax] 0.4 mg PO DAILY 11/26/18 [History] Albuterol Neb [Proventil Neb] 2.5 mg IH Q2H PRN #1 inhsol 12/02/18 [Rx] Oxycodone HCl 15 mg PO BID 30 Days #60 tablet 02/18/19 [Rx] Albuterol Sulfate [Ventolin Hfa] 2 puff PO Q4H PRN 02/27/19 [History] Ascorbate Calcium [Vitamin C] 500 mg PO DAILY 02/27/19 [History] Cholecalciferol (Vitamin D3) [Dialyvite Vitamin D] 5,000 units PO DAILY 02/27/19 [History] Guaifenesin [Mucinex] 600 mg PO BID PRN 02/27/19 [History] Nadolol 20 mg PO DAILY 02/27/19 [History] [place]-3S/Dha/Epa/Fish Oil [Fish Oil 1,200 mg Softgel] 1,200 mg PO DAILY 02/27/19 [History] Omeprazole [PriLOSEC] 20 mg PO DAILY 02/27/19 [History] Furosemide [Lasix] 40 mg PO DAILY 30 Days #30 03/02/19 [Rx] Insulin DETEMIR [Levemir] 20 unit SQ HS 30 Days #100 [id number] 03/02/19 [Rx] predniSONE [PredniSONE] 40 mg PO DAILY 3 Days #6 tablet 03/02/19 [Rx] Allergies/Adverse Reactions: Allergy/AdvReac Type Severity Reaction Status Date / Time band-aids AdvReac Blister Uncoded 12/13/18 14:42 Date of admission: 02/26/19 17:08 Primary care physician: PCP NONE Consults: 02/28/19 10:12 Consult to Physical Therapy [CONS] Routine Comment: Evaluate, develop and implement POC Reason for Consult: Weakness Does patient have active BEDREST order?: No Is patient medically & hemodynamically stable?: Yes - Constitutional Vitals: Temp Pulse Resp BP Pulse Ox 98.3 F 77 14 132/51 94 03/02/19 06:38 03/02/19 06:38 03/02/19 06:38 03/02/19 06:38 03/02/19 06:38 Exam: Gen.NAD CVS. S1 S2 WNL 3/6 systolic murmur Resp. decreased breath sounds GI. Soft, NT, ND +BS EXt. trace pedal edema GCS 15 - Patient Status Disposition: Home, Self-Care - Discharge Instructions Instructions: Heart Failure (DC), Urinary Tract Infection in Men (DC), Chronic Obstructive Pulmonary Disease (DC) Follow Up With: NONE,PCP [Primary Care Provider] -
[2019-03-02] MEDS: Budesonide/Formoterol 160/4.5 1 PUFF INH IH SCH (10:48)
== END 2019-03-02 11:30 | disposition home or self-care (01) | DRG 291 ==
LOC: ICNU → 2NENU 02-27 16:28
PROVIDERS: ADMIT Internal Medicine Pulmonary Disease; ATTEND Internal Medicine Pulmonary Disease

== ENCOUNTER 2019-06-04 21:55 | Inpatient (IN) ==
[2019-06-04] MEDS ORDERED: Furosemide 40 MG/4 ML VIAL IVP ONE (22:07)
--- NOTE | 2019-06-04 22:08 | Emergency Department Note ---
Disposition Clinical Impression: CHF exacerbation Qualifiers: Heart failure type: unspecified Qualified Code(s): I50.9 - Heart failure, unspecified Disposition: Admitted As Inpatient Condition: Fair Time of Disposition: 23:47 SOB HPI - General Chief Complaint: ED Shortness of Breath/Dyspnea Stated Complaint: [place] Time Seen by Provider: 06/04/19 22:06 Source: patient, family, EMS Limitations: no limitations Nursing Notes Reviewed: Yes Vital Signs Reviewed: Yes - History of Present Illness Patient is a 74-year-old male presenting with acute shortness of breath. Patient with known history of recurrent left pleural effusion with pleuro-dex catheter on the left, lymphoma, not currently on any chemotherapy, COPD, CHF, CAD, hypertension, hyperlipidemia and diabetes. Patient was brought in via EMS by [facility]. States that significant shortness of breath occurred this evening around 1999, states that he was having difficulty getting a deep breath and felt significantly short of breath. Per he has not had a significant change in cough or sputum production, no recent fevers or chills. He has not had any recent cough, fevers or chills, no chest pain. Patient does not get up and ambulate. has not noticed any leg swelling recently. Per , 2 weeks ago drained 250cc, attempted today without fluid removal. - Related Data Home Medications Medication Instructions Recorded Confirmed Aspirin 81 mg PO DAILY 11/06/18 06/04/19 Docusate [Colace] 100 mg PO DAILY PRN 11/06/18 06/04/19 Insulin Regular, Human [Novolin R] 0 - 18 unit SQ TIDWM 11/06/18 06/04/19 Multivitamin [One Daily] 1 tab PO DAILY 11/06/18 06/04/19 Ondansetron HCl [Zofran] 4 mg PO Q6H PRN 11/06/18 06/04/19 Pantoprazole Sodium [Protonix] 40 mg PO DAILY 11/06/18 06/04/19 Spironolactone [Aldactone] 100 mg PO DAILY 11/06/18 06/04/19 DiphenhydraMINE [Benadryl] 25 mg PO Q6HR PRN 11/26/18 06/04/19 Gabapentin [Neurontin] 300 mg PO TID 11/26/18 06/04/19 Tamsulosin HCl [Flomax] 0.4 mg PO DAILY 11/26/18 06/04/19 Cholecalciferol (Vitamin D3) 5,000 units PO DAILY 02/27/19 06/04/19 [Dialyvite Vitamin D] Guaifenesin [Mucinex] 600 mg PO BID PRN 02/27/19 06/04/19 Nadolol 20 mg PO DAILY 02/27/19 06/04/19 [place]-3S/Dha/Epa/Fish Oil [Fish 1,200 mg PO BID 02/27/19 06/04/19 Oil 1,200 mg Softgel] Fish Oil/Dha/Epa [Fish Oil 1,200 1 each PO DAILY 03/16/19 06/04/19 mg Fish Oil] LORazepam [Ativan] 0.5 mg PO BID PRN 03/18/19 06/04/19 Ascorbic Acid [Vitamin C] 1,000 mg PO DAILY 03/25/19 06/04/19 Cinnamon Bark [Cinnamon] 1,000 mg PO DAILY 03/25/19 06/04/19 Fluticasone/Vilanterol [Breo 1 each IH DAILY 03/25/19 06/04/19 Ellipta 200-25 Mcg INH] Insulin Glargine,Hum.rec.anlog 20 unit SQ HS 03/25/19 06/04/19 [Basaglar Kwikpen U-100] Oxygen 1 each .ROUTE AD 03/25/19 06/04/19 Prochlorperazine Maleate 10 mg PO Q6HR 03/25/19 06/04/19 [Compazine] Oxycodone HCl 15 mg PO BID PRN 06/04/19 06/04/19 Previous Rx's Medication Instructions Recorded Furosemide [Lasix] 40 mg PO BIDDIURETIC #60 tablet 03/22/19 Allergies Allergy/AdvReac Type Severity Reaction Status Date / Time chlorhexidine Allergy Blister Verified 06/04/19 22:11 band-aids AdvReac Blister Uncoded 03/25/19 14:48 All systems ED: reviewed and negative except as stated. Review of Systems: As Per HPI Constitutional: Denies: fever, chills ENT ED: Denies: congestion Cardiovascular: Reports: dyspnea on exertion. Denies: chest pain, palpitations, syncope Respiratory: Reports: dyspnea. Denies: cough, wheezes, hemoptysis, sputum production Gastrointestinal: Denies: abdominal pain, nausea, vomiting Musculoskeletal: Denies: back pain Integumentary: Denies: rash Neurological: Denies: headache, weakness, confusion Endocrine: Reports: fatigue Past Medical History - Past Medical History Medical history: Reports: arthritis, cancer, cirrhosis, CHF, COPD, diabetes, GERD, hyperlipidemia, hypertension, kidney stones, liver disease, renal disease, valvular heart disease, other Surgical history: Reports: orthopedic, other (Bone graft right hip), other (Eye surgery, retinal surgery, A port) Psychiatric history: Reports: no psych history - Social History Smoking Status: Former smoker Smokeless Tobacco Status: No Alcohol use: Reports: none Drug use: Reports: none Physical Exam - General Limitations: no limitations General appearance: alert - Head Head exam: atraumatic, normocephalic, normal inspection - Eye Eye exam: Present: PERRL, EOMI - ENT ENT exam: mucous membranes moist - Neck Neck exam: Present: normal inspection, trachea midline - Chest Chest inspection: Present: normal inspection, symmetric chest wall rise, other (port to the anterior chest ) - Respiratory Respiratory exam: Present: other (Patient was seen immediately decreased breath sounds left greater than right, patient with crackles to the bases) - Cardiovascular Cardiovascular exam: Present: normal rhythm, bradycardia - Abdominal Exam Abdominal exam: Present: soft, Non-Tender. Absent: guarding, rebound - Extremities Exam Extremities exam: Present: normal inspection, normal capillary refill. Absent: pedal edema - Expanded Lower Extremity Exam Neurovascular/Tendon exam: Absent: motor deficit, sensory deficit, tendon deficit - Back Exam Back exam: Present: normal inspection, full ROM. Absent: tenderness - Neurological Exam Neurological exam: Present: alert - Psychiatric Psychiatric exam: Present: normal affect - Skin Skin exam: Present: warm, dry. Absent: rash, diaphoresis Course Vital Signs Temperature 97.7 F 06/04/19 21:57 Pulse Rate 54 06/04/19 21:57 Respiratory Rate 18 06/04/19 21:57 Blood Pressure 122/53 06/04/19 21:57 O2 Sat by Pulse Oximetry 96 06/04/19 21:57 Temperature 96.4 F L 06/05/19 02:28 Pulse Rate 49 06/05/19 02:28 Respiratory Rate 18 06/05/19 01:46 Blood Pressure 158/69 06/05/19 02:28 O2 Sat by Pulse Oximetry 99 06/05/19 02:28 Oxygen Delivery Oxygen Delivery Bipap Shortness of Breath/Dyspnea - MDM Narrative Medical decision making narrative: She is a 74-year-old male who is presenting with acute shortness of breath. Patient with known history of hypertension, hyperlipidemia, diabetes, COPD, congestive heart failure with recurrent left-sided pleural effusion requiring pleuro-dex catheter placement. On arrival, patient was brought in via EMS, he was on BiPAP with initial oxygen saturation at 88% on their arrival, patient is chronically on 3 L nasal cannula for COPD and CHF. On BiPAP on his arrival, patient was satting at 96%, without respiratory distress. Patient was then titrated down to 4 L nasal cannula, he remained at 96% and in no acute distress. On examination, he has decreased breath sounds bilaterally, he does have some crackles to the bases. Significantly reduced breath sounds throughout. Initial chest x-ray shows concern for moderate to severe pulmonary edema, this fits with clinical picture, given this finding, we will transition the patient back to BiPAP, patient is not in respiratory distress however feel this as though this will be the most appropriate treatment for his volume overload. Patient's blood pressure is somewhat soft at 120 systolic, we will hold off on nitroglycerin for further treatment until necessary. Patient is also slightly bradycardic with a heart rate in the 45-55 bpm. Patient was also given Lasix 40 mg. Further laboratory work shows slight leukocytosis, however per there is been no recent cough, fevers or chills. We will hold off on empiric antibiotic treatment for this. Feels that this is most likely volume overloaded state. Further laboratory work appears to be at patient's baseline. BNP is elevated but actually downtrending from prior admission. Troponin is within normal limits. EKG shows no acute ischemic changes. On reevaluation, patient is sleeping, in no acute distress, he is still on BiPAP and appears to be breathing without distress, he is currently satting on 96% on BiPAP without difficulty breathing. At this point in time, patient will be admitted to the hospitalist, he is been accepted by Dr. Manning. Per Dr. Bah recommendation, patient will have a CT with IV contrast, to better differentiate the consolidation versus effusion in the bilateral lungs, feels that this is appropriate given patient's slight leukocytosis, to see if there is any infectious etiology. - Differential Diagnosis Likely: acute exacerbation of chronic obstructive airways disease, congestive heart failure, pneumonia, pneumothorax, arrhythmia - Medical Records Medical records reviewed: Yes I reviewed the patient's medical records. - Lab Data Lab results reviewed: Yes I reviewed the patient's lab results. Result diagrams: 06/04/19 22:33 06/04/19 22:33 Lab Results 06/04/19 06/04/19 06/04/19 Range/Units 22:33 22:33 22:33 WBC 13.1 H (4.3-11.1) K/mcL RBC 4.27 (4.19-5.50) M/mcL Hgb 12.4 L (12.9-16.9) g/dL Hct 37.3 L (37.5-50.1) % MCV 87.4 (83.0-100.0) fL MCH 29.0 (28.0-33.3) pg MCHC 33.2 (31.6-35.5) g/dL RDW 13.6 (11.5-14.5) % Plt Count 213 (140-400) K/mcL MPV 9.2 L (9.4-12.4) fL Immature Gran % 0.5 (0-4) % Seg Neutrophils % 65.7 % Lymphocytes % 20.0 % Monocytes % 11.8 % Eosinophils % 1.5 % Basophils % 0.5 % Neutrophils # 8.6 (1.6-8.9) K/mcL Lymphocytes # 2.6 (0.6-4.6) K/mcL Monocytes # 1.6 H (0.0-1.3) K/mcL Eosinophils # 0.2 (0.0-0.6) K/mcL Basophils # 0.1 (0.0-0.2) K/mcL PT 15.2 H (9.4-12.1) Seconds INR 1.3 APTT 34.4 (26.0-36.0) Seconds Sodium 134 L (136-145) mEq/L Potassium 4.2 (3.5-5.1) mEq/L Chloride 89 L (98-107) mEq/L Carbon Dioxide 35 H (23-29) mEq/L BUN 31 H (8-23) mg/dL Creatinine 1.44 H (0.70-1.30) mg/dL Est GFR ( Amer) 58 L (> 60) Est GFR (Non-Af Amer) 48 L (> 60) BUN/Creatinine Ratio 22 (6-26) Glucose 87 (70-105) mg/dL Calculated Osmolality 284 (280-300) Lactic Acid (0.5-2.2) mmol/L Calcium 10.5 H (8.6-10.3) mg/dL Troponin I 0.03 (< 0.04) ng/mL B-Natriuretic Peptide (Less than 100) pg/mL 06/04/19 06/04/19 Range/Units 22:33 22:33 WBC (4.3-11.1) K/mcL RBC (4.19-5.50) M/mcL Hgb (12.9-16.9) g/dL Hct (37.5-50.1) % MCV (83.0-100.0) fL MCH (28.0-33.3) pg MCHC (31.6-35.5) g/dL RDW (11.5-14.5) % Plt Count (140-400) K/mcL MPV (9.4-12.4) fL Immature Gran % (0-4) % Seg Neutrophils % % Lymphocytes % % Monocytes % % Eosinophils % % Basophils % % Neutrophils # (1.6-8.9) K/mcL Lymphocytes # (0.6-4.6) K/mcL Monocytes # (0.0-1.3) K/mcL Eosinophils # (0.0-0.6) K/mcL Basophils # (0.0-0.2) K/mcL PT (9.4-12.1) Seconds INR APTT (26.0-36.0) Seconds Sodium (136-145) mEq/L Potassium (3.5-5.1) mEq/L Chloride (98-107) mEq/L Carbon Dioxide (23-29) mEq/L BUN (8-23) mg/dL Creatinine (0.70-1.30) mg/dL Est GFR ( Amer) (> 60) Est GFR (Non-Af Amer) (> 60) BUN/Creatinine Ratio (6-26) Glucose (70-105) mg/dL Calculated Osmolality (280-300) Lactic Acid 0.8 (0.5-2.2) mmol/L Calcium (8.6-10.3) mg/dL Troponin I (< 0.04) ng/mL B-Natriuretic Peptide 677 H (Less than 100) pg/mL - Radiology Data Radiology results reviewed: Yes I reviewed the patient's radiology results. Chest X-Ray 06/04/19 22:45 IMPRESSION: Moderate to severe CHF with right pleural effusion. Superimposed pneumonia not excluded. D/ / Jimenez Simon MD / Jimenez Simon MD Interpreting Provider: Jimenez Simon MD - EKG Data EKG attestation: Yes I reviewed and interpreted this EKG. EKG results narrative: EKG obtained at 0 ventricular rate of 54, regular rhythm, left axis deviation with LVH, prolonged TN interval at 259 which is relatively unchanged from prior performed on . No acute ST segment elevation, depression or T-wave changes.
--- NOTE | 2019-06-04 22:45 | Emergency Department Note ---
Disposition Clinical Impression: CHF exacerbation Qualifiers: Heart failure type: unspecified Qualified Code(s): I50.9 - Heart failure, unspecified Disposition: Admitted As Inpatient Condition: Fair Time of Disposition: 23:47 General Adult HPI - General Chief complaint: ED Shortness of Breath/Dyspnea Stated complaint: [place] Time Seen by Provider: 06/04/19 22:06 Source: patient, family, EMS Limitations: no limitations Nursing Notes Reviewed: Yes Vital Signs Reviewed: Yes - History of Present Illness Pain Scale: 0 - Related Data Home Medications Medication Instructions Recorded Confirmed Aspirin 81 mg PO DAILY 11/06/18 06/04/19 Docusate [Colace] 100 mg PO DAILY PRN 11/06/18 06/04/19 Insulin Regular, Human [Novolin R] 0 - 18 unit SQ TIDWM 11/06/18 06/04/19 Multivitamin [One Daily] 1 tab PO DAILY 11/06/18 06/04/19 Ondansetron HCl [Zofran] 4 mg PO Q6H PRN 11/06/18 06/04/19 Pantoprazole Sodium [Protonix] 40 mg PO DAILY 11/06/18 06/04/19 Spironolactone [Aldactone] 100 mg PO DAILY 11/06/18 06/04/19 DiphenhydraMINE [Benadryl] 25 mg PO Q6HR PRN 11/26/18 06/04/19 Gabapentin [Neurontin] 300 mg PO TID 11/26/18 06/04/19 Tamsulosin HCl [Flomax] 0.4 mg PO DAILY 11/26/18 06/04/19 Cholecalciferol (Vitamin D3) 5,000 units PO DAILY 02/27/19 06/04/19 [Dialyvite Vitamin D] Guaifenesin [Mucinex] 600 mg PO BID PRN 02/27/19 06/04/19 Nadolol 20 mg PO DAILY 02/27/19 06/04/19 [place]-3S/Dha/Epa/Fish Oil [Fish 1,200 mg PO BID 02/27/19 06/04/19 Oil 1,200 mg Softgel] Fish Oil/Dha/Epa [Fish Oil 1,200 1 each PO DAILY 03/16/19 06/04/19 mg Fish Oil] LORazepam [Ativan] 0.5 mg PO BID PRN 03/18/19 06/04/19 Ascorbic Acid [Vitamin C] 1,000 mg PO DAILY 03/25/19 06/04/19 Cinnamon Bark [Cinnamon] 1,000 mg PO DAILY 03/25/19 06/04/19 Fluticasone/Vilanterol [Breo 1 each IH DAILY 03/25/19 06/04/19 Ellipta 200-25 Mcg INH] Insulin Glargine,Hum.rec.anlog 20 unit SQ HS 03/25/19 06/04/19 [Basaglar Kwikpen U-100] Oxygen 1 each .ROUTE AD 03/25/19 06/04/19 Prochlorperazine Maleate 10 mg PO Q6HR 03/25/19 06/04/19 [Compazine] Oxycodone HCl 15 mg PO BID PRN 06/04/19 06/04/19 Previous Rx's Medication Instructions Recorded Furosemide [Lasix] 40 mg PO BIDDIURETIC #60 tablet 03/22/19 Allergies Allergy/AdvReac Type Severity Reaction Status Date / Time chlorhexidine Allergy Blister Verified 06/04/19 22:11 band-aids AdvReac Blister Uncoded 03/25/19 14:48 Past Medical History - Past Medical History Medical history: Reports: arthritis, cancer, cirrhosis, CHF, COPD, diabetes, GERD, hyperlipidemia, hypertension, kidney stones, liver disease, renal disease, valvular heart disease, other Surgical history: Reports: orthopedic, other (Bone graft right hip), other (Eye surgery, retinal surgery, A port) Psychiatric history: Reports: no psych history - Social History Smoking Status: Former smoker Smokeless Tobacco Status: No Alcohol use: Reports: none Drug use: Reports: none Physical Exam - General Limitations: no limitations General appearance: alert Course Vital Signs Temperature 97.7 F 06/04/19 21:57 Pulse Rate 54 06/04/19 21:57 Respiratory Rate 18 06/04/19 21:57 Blood Pressure 122/53 06/04/19 21:57 O2 Sat by Pulse Oximetry 96 06/04/19 21:57 Temperature 96.4 F L 06/05/19 02:28 Pulse Rate 49 06/05/19 02:28 Respiratory Rate 14 06/05/19 03:46 Blood Pressure 96/75 06/05/19 03:46 O2 Sat by Pulse Oximetry 98 06/05/19 03:46 Oxygen Delivery Oxygen Delivery Bipap Medical Decision Making - Medical Records Medical records reviewed: Yes I reviewed the patient's medical records. - Lab Data Lab results reviewed: Yes I reviewed the patient's lab results. Result diagrams: 06/04/19 22:33 06/04/19 22:33 Lab Results 06/04/19 06/04/19 06/04/19 Range/Units 22:33 22:33 22:33 WBC 13.1 H (4.3-11.1) K/mcL RBC 4.27 (4.19-5.50) M/mcL Hgb 12.4 L (12.9-16.9) g/dL Hct 37.3 L (37.5-50.1) % MCV 87.4 (83.0-100.0) fL MCH 29.0 (28.0-33.3) pg MCHC 33.2 (31.6-35.5) g/dL RDW 13.6 (11.5-14.5) % Plt Count 213 (140-400) K/mcL MPV 9.2 L (9.4-12.4) fL Immature Gran % 0.5 (0-4) % Seg Neutrophils % 65.7 % Lymphocytes % 20.0 % Monocytes % 11.8 % Eosinophils % 1.5 % Basophils % 0.5 % Neutrophils # 8.6 (1.6-8.9) K/mcL Lymphocytes # 2.6 (0.6-4.6) K/mcL Monocytes # 1.6 H (0.0-1.3) K/mcL Eosinophils # 0.2 (0.0-0.6) K/mcL Basophils # 0.1 (0.0-0.2) K/mcL PT 15.2 H (9.4-12.1) Seconds INR 1.3 APTT 34.4 (26.0-36.0) Seconds Sodium 134 L (136-145) mEq/L Potassium 4.2 (3.5-5.1) mEq/L Chloride 89 L (98-107) mEq/L Carbon Dioxide 35 H (23-29) mEq/L BUN 31 H (8-23) mg/dL Creatinine 1.44 H (0.70-1.30) mg/dL Est GFR ( Amer) 58 L (> 60) Est GFR (Non-Af Amer) 48 L (> 60) BUN/Creatinine Ratio 22 (6-26) Glucose 87 (70-105) mg/dL Calculated Osmolality 284 (280-300) Lactic Acid (0.5-2.2) mmol/L Calcium 10.5 H (8.6-10.3) mg/dL Troponin I 0.03 (< 0.04) ng/mL B-Natriuretic Peptide (Less than 100) pg/mL 06/04/19 06/04/19 Range/Units 22:33 22:33 WBC (4.3-11.1) K/mcL RBC (4.19-5.50) M/mcL Hgb (12.9-16.9) g/dL Hct (37.5-50.1) % MCV (83.0-100.0) fL MCH (28.0-33.3) pg MCHC (31.6-35.5) g/dL RDW (11.5-14.5) % Plt Count (140-400) K/mcL MPV (9.4-12.4) fL Immature Gran % (0-4) % Seg Neutrophils % % Lymphocytes % % Monocytes % % Eosinophils % % Basophils % % Neutrophils # (1.6-8.9) K/mcL Lymphocytes # (0.6-4.6) K/mcL Monocytes # (0.0-1.3) K/mcL Eosinophils # (0.0-0.6) K/mcL Basophils # (0.0-0.2) K/mcL PT (9.4-12.1) Seconds INR APTT (26.0-36.0) Seconds Sodium (136-145) mEq/L Potassium (3.5-5.1) mEq/L Chloride (98-107) mEq/L Carbon Dioxide (23-29) mEq/L BUN (8-23) mg/dL Creatinine (0.70-1.30) mg/dL Est GFR ( Amer) (> 60) Est GFR (Non-Af Amer) (> 60) BUN/Creatinine Ratio (6-26) Glucose (70-105) mg/dL Calculated Osmolality (280-300) Lactic Acid 0.8 (0.5-2.2) mmol/L Calcium (8.6-10.3) mg/dL Troponin I (< 0.04) ng/mL B-Natriuretic Peptide 677 H (Less than 100) pg/mL - Radiology Data Radiology results reviewed: Yes I reviewed the patient's radiology results. Chest X-Ray 06/04/19 22:45 IMPRESSION: Moderate to severe CHF with right pleural effusion. Superimposed pneumonia not excluded. D/ / Jimenez Simon MD / Jimenez Simon MD Interpreting Provider: Jimenez Simon MD Chest CT 06/05/19 02:42 IMPRESSION: 1. Constellation of findings within the lungs is most consistent with moderate to severe CHF, including bilateral pleural effusions and interstitial pulmonary edema. A left PleurX catheter is in place. 2. Partial consolidation of the bilateral lower lobes likely reflects passive atelectasis, though aspiration or pneumonia are also diagnostic considerations. 3. Additional scattered ground-glass and nodular opacities throughout both lungs likely reflects a combination of asymmetric edema and superimposed pneumonia. 4. Interval progression of lymphadenopathy throughout the chest mediastinum, most consistent with progressive lymphoma. 5. Stable splenomegaly and bulky lymphadenopathy within the upper abdomen, consistent with patient's known history of lymphoma. 6. Stable abdominal ascites. 7. Cholelithiasis. D/ / Fredrick Abdullahi MD / Fredrick Abdullahi MD Interpreting Provider: Fredrick Abdullahi MD - EKG Data EKG #1 EKG attestation: Yes I reviewed and interpreted this EKG. EKG results narrative: EKG shows a sinus bradycardia with ventricular rate of 54. First-degree AV block. LVH. No significant change from prior EKG dated 03/18/2019. Critical Care Time Critical Care Time: Yes Total Critical Care Time: 40 Attestation: Critical care performed: Time is exclusive of separately billable procedures. Time includes: direct patient care, patient reassessment, coordination of patient care, interpretation of data (laboratory data, radiology data, and respiratory data), review of patient's medical records, medical consultation and documentation of patient care. Procedures included in critical care time: Procedures excluded from critical care time: Attestation Statement - Attestation Attestation: I, Neno Keys MD, personally evaluated this patient and discussed their management with the resident physician. I reviewed the resident's note and agree with the documented findings, medical decision making, and plan of care. I reviewed the residents documentation and agree with the residents assessment and plan of care. I have personally had face to face time with the patient. I personally supervised and was present for the pineda/critical portions of the following procedures completed by the resident: EKG interpretation. 74-year-old male persist to the emergency department by EMS for complaint of increased shortness of breath over the past 3 days. Worse this evening. No complaints of chest pain. No increased cough or fever. Patient has an ind welling for a direct catheter in the left chest for drainage of pleural effusion. reports that they have been draining at home intermittently. He was last drained about 2 weeks ago and they tried to drain it today but did not get any return. Patient is on home oxygen at 3 L. EMS reports his oxygen saturation was 88% initially. They placed him on CPAP in route to the emergency department and his oxygen saturation increased into the 90s. On arrival here in the emergency department the patient was placed back on oxygen by nasal cannula at 4 L/m. Oxygen saturation was in the mid 90s and patient does not appear to be in respiratory distress. reports his mental status is baseline. On examination patient is a well-developed obese elderly male in no acute distress. He is alert. Pale. No cyanosis or diaphoresis. Breath sounds are markedly decreased bilaterally with moist rales bilaterally, worse on the left. Heart regular with a mild bradycardia. Abdomen soft and nontender. No pedal edema. EKG shows a sinus bradycardia with ventricular rate of 54. First-degree AV b lock. LVH. No significant change from prior EKG dated 03/18/2019. Chest x-ray shows CHF with right pleural effusion. CT of the chest obtained and shows CHF with bilateral pleural effusions. Cannot rule out underlying pneumonia. Labs reviewed. Patient was placed on BiPAP in the emergency department. He also received Lasix. The hospitalist, Dr. Manning, was consulted and accepted admission of the patient.
[2019-06-04 22:53] LABS: Basophils # 0.1 K/mcL (0.0-0.2); Basophils % 0.5 %; Eosinophils # 0.2 K/mcL (0.0-0.6); Eosinophils % 1.5 %; Hematocrit 37.3 % (37.5-50.1); Hemoglobin 12.4 g/dL (12.9-16.9); Immature Granulocytes % 0.5 % (0-4); Lymphocytes # 2.6 K/mcL (0.6-4.6); Mean Corpuscular HGB Conc 33.2 g/dL (31.6-35.5); Mean Corpuscular Volume 87.4 fL (83.0-100.0); Mean Platelet Volume 9.2 fL (9.4-12.4); Monocytes # 1.6 K/mcL (0.0-1.3); Monocytes % 11.8 %; Neutrophils # 8.6 K/mcL (1.6-8.9); Platelet Count 213 K/mcL (140-400); Red Blood Count 4.27 M/mcL (4.19-5.50); Red Cell Distribution Width 13.6 % (11.5-14.5); Segmented Neutrophils % 65.7 %; White Blood Count 13.1 K/mcL (4.3-11.1)
[2019-06-04 22:56] LABS: INR 1.3; Prothrombin Time 15.2 Seconds (9.4-12.1)
[2019-06-04 22:59] LABS: Activated Partial Thrombo Time 34.4 Seconds (26.0-36.0)
[2019-06-04 23:15] LABS: Calcium 10.5 mg/dL (8.6-10.3); Potassium 4.2 mEq/L (3.5-5.1)
[2019-06-04 23:16] LABS: Troponin I 0.03 ng/mL (< 0.04)
[2019-06-05] MEDS ORDERED: Isovue-370 500 ML BOTTLE IVP ONE (01:01)
[2019-06-05] MEDS ORDERED: *HR* OxyCODONE Immed Rel 15 MG TABLET PO PRN (01:58)
[2019-06-05] MEDS ORDERED: Ondansetron ODT 4 MG TAB.RAPDIS PO PRN (01:58)
[2019-06-05] MEDS ORDERED: *HR* LORazepam 0.5 MG TABLET PO PRN (01:58)
[2019-06-05] MEDS ORDERED: *HR* Dextrose 50 % in Water (Syg) 50 ML SYRINGE IVP PRN (02:00)
[2019-06-05] MEDS ORDERED: Dextrose Gel 15 GM/37.5 ML TUBE PO PRN ×2 (02:00)
[2019-06-05 02:50] LABS: ABG Base Excess 13 mEq/L (-2 to 3); ABG HCO3 39 mEq/L (21-27); ABG Oxygen Saturation 94 % (95-98); ABG PCO2 60 mmHg (35-45); ABG PH 7.43 pH Units (7.32-7.45); ABG PO2 73 mmHg (85-104); ABG TCO2 41 mEq/L (20-26)
[2019-06-05] MEDS ORDERED: D5% in Water 1,000 ML IVC PRN (02:58)
--- NOTE | 2019-06-05 03:46 | Internal Med History&Physical ---
Date of Encounter: 06/05/19 Time of Encounter: 03:45 Internal Medicine - H&P: HPI Chief complaint: sob Admitted From: Home Plans for Post Hospital Care: Home History of present illness: Collin Cross is a 74 year old man with multiple comorbidities which include follicular lymphoma diagnosed in 2012, liver cirrhosis, diastolic heart failure, COPD, diabetes, severe aortic stenosis and chronic kidney disease. He was admitted here in November 2018 with pulmonary congestion and again in March where he was found to have a large left pleural effusion requiring thoracentesis on 2 occasions and subsequently had a Pleurx catheter inserted. He presents to emergency room now with complaints of increasing shortness of breath that started yesterday evening without an associated change in cough or sputum production, also denying fever, chills and chest pain. It is reported that there were attempts to drain his Pleurx catheter yesterday but were unsuccessful. He was placed on BiPAP upon arrival. He remained hemodynamically stable. Chest x-ray is reviewed by me revealed significant pulmonary vascular congestion and a follow-up CT scan was done which corroborated the findings in addition to concerns of atelectasis and possible aspiration changes. He was given a dose of 40 mg IVP furosemide in the ER prior to his admission. At the time of my assessment when he arrived to the floor, he was poorly respon sive to verbal and painful tactile stimuli. Family members at bedside state that he appeared worse than prior to arrival to the ER as they confirm that he was at least previously talkative then but now isnt. His heart rate dipped into the 30s on multiple occasions which coupled with his poor mental status and hypothermic state prompted his transfer to ICU for continued monitoring. Vitals: Reviewed. General: Asthenic appearing elderly man lying in bed sleeping. Skin: Warm, pale and dry. HEENT: Moist mucous membranes. (+) conjunctivae pallor. Neck: No lymphadenopathy. No JVD. Chest: Reduced thoracic expansion. Diminished breath sounds globally. Heart: Normal S1 & S2; rhythmic. Systolic ejection murmur at upper right sternal border. Abdomen: Slightly distended, soft and non-tender to palpation. Extremities: Distal acrocyanosis, cold and pale. Neurological: Somnolent and poorly arousable. Psych: Unable to assess due to mental status. Assessment/Plan 1. Acute on chronic hypoxic respiratory failure: Seemingly secondary to pulmonary edema/pleural effusions in the setting of his oncoproliferative process as well as liver disease. The trouble extracting fluid from the catheter may play a role. He has underlying atelectatic regions which are seen on previous images however it is unclear to me if there is compounded pneumonic consolidation as well. Will get a set of blood cultures and start empiric antibiotics in addition with PipTazo alone for now and assess his response. Leta ck an MRSA nasal screen; if positive will add anti-Staphylococcal therapy. In the interim, continue parenteral furosemide to offload the pressure and place a chao for output monitoring given his underlying kidney disease. 2. Altered mental status: Ruled out hypercarbia with ABG and his glucose was 67mg/dl at the time of transfer to ICU. In any case, we administered a dose of D50% to ensure his glycemic values remain higher into the 100s to avoid potential complications given his poor intake. He was not hypoxic either. Will check serum ammonia. No focal findings apparent. Since he is on Bipap with the decrease in mentation, he will be monitored in ICU for the time being given the risk of airway protection compromise. Will avoid any sedating medications. 3. Follicular lymphoma: s/p chemotherapy and being followed by oncology. 4. Type 2 diabetes mellitus: He will remain on basal insulin coupled with insulin sliding scale. 5. Chronic kidney disease: Stage 3. He received contrast with his CT. Closely monitor his CrCl and avoid further nephrotoxic insults. Past Med Surg Social Fam HX - Past Medical History Medical history: arthritis, cancer, cirrhosis, CHF, COPD, diabetes, GERD, hyperlipidemia, hypertension, kidney stones, liver disease, renal disease, valvular heart disease, other Additional medical history: Follicula lymphoma. 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 Ascites. Hyperuricemia. Hyponatremia. Hyperkalemia. Aortic stenosis. Glueosuria. cardiomegaly. heart murmur. ascites Psychiatric history: no psych history - Past Surgical History Surgical History: orthopedic, other (Bone graft right hip), other (Eye surgery, retinal surgery, A port) Additional surgical history: eye surg, right wrist surgery, A-PORT, cancer testing - Social History Smoking Status: Former smoker Smokeless Tobacco Status: No Alcohol use: none Drug use: none - Family History Daughter Hx Family Cancer: Yes (Breast) Mother Adopted: No Family Member Ethnicity: Non- Living Status: Still Living Hx Family Cardiac Disorders: Yes (CAD with stents) Hx Family Respiratory Disorders: No Hx Family Cancer: No Hx Family GI Disorders: No Hx Family Endocrine Disorder: Yes Hx Family Neuromuscular Disorders: No Hx Family Neurologic Disorders: No Hx Family HEENT Disorders: No Hx Family Autoimmune Disorders: No Father Adopted: No Family Member Ethnicity: Non- Living Status: Hx Family Cardiac Disorders: No Hx Family Respiratory Disorders: No Hx Family Cancer: Yes (Lung) Hx Family GI Disorders: No Hx Family Endocrine Disorder: No Hx Family Neuromuscular Disorders: No Hx Family Neurologic Disorders: No Hx Family HEENT Disorders: No Hx Family Autoimmune Disorders: No Internal Medicine - H&P: Meds Aspirin 81 mg PO DAILY 11/06/18 [History] Docusate [Colace] 100 mg PO DAILY PRN 11/06/18 [History] Insulin Regular, Human [Novolin R] 0 - 18 unit SQ TIDWM 11/06/18 [History] Multivitamin [One Daily] 1 tab PO DAILY 11/06/18 [History] Ondansetron HCl [Zofran] 4 mg PO Q6H PRN 11/06/18 [History] Pantoprazole Sodium [Protonix] 40 mg PO DAILY 11/06/18 [History] Spironolactone [Aldactone] 100 mg PO DAILY 11/06/18 [History] DiphenhydraMINE [Benadryl] 25 mg PO Q6HR PRN 11/26/18 [History] Gabapentin [Neurontin] 300 mg PO TID 11/26/18 [History] Tamsulosin HCl [Flomax] 0.4 mg PO DAILY 11/26/18 [History] Cholecalciferol (Vitamin D3) [Dialyvite Vitamin D] 5,000 units PO DAILY 02/27/19 [History] Guaifenesin [Mucinex] 600 mg PO BID PRN 02/27/19 [History] Nadolol 20 mg PO DAILY 02/27/19 [History] [place]-3S/Dha/Epa/Fish Oil [Fish Oil 1,200 mg Softgel] 1,200 mg PO BID 02/27/19 [History] Fish Oil/Dha/Epa [Fish Oil 1,200 mg Fish Oil] 1 each PO DAILY 03/16/19 [History] LORazepam [Ativan] 0.5 mg PO BID PRN 03/18/19 [History] Furosemide [Lasix] 40 mg PO BIDDIURETIC #60 tablet 03/22/19 [Rx] Ascorbic Acid [Vitamin C] 1,000 mg PO DAILY 03/25/19 [History] Cinnamon Bark [Cinnamon] 1,000 mg PO DAILY 03/25/19 [History] Fluticasone/Vilanterol [Breo Ellipta 200-25 Mcg INH] 1 each IH DAILY 03/25/19 [History] Insulin Glargine,Hum.rec.anlog [Basaglar Kwikpen U-100] 20 unit SQ HS 03/25/19 [History] Oxygen 1 each .ROUTE AD 03/25/19 [History] Prochlorperazine Maleate [Compazine] 10 mg PO Q6HR 03/25/19 [History] Oxycodone HCl 15 mg PO BID PRN 06/04/19 [History] Allergy/AdvReac Type Severity Reaction Status Date / Time chlorhexidine Allergy Blister Verified 06/04/19 22:11 band-aids AdvReac Blister Uncoded 03/25/19 14:48 All Systems PM: A 10-system review of systems was performed and is negative for pertinent findings except as documented above in the HPI. - Constitutional Vitals: Temp Pulse Resp BP Pulse Ox 96.4 F L 49 18 158/69 99 06/05/19 02:28 06/05/19 02:28 06/05/19 01:46 06/05/19 02:28 06/05/19 02:28 Exam: . Internal Med - H&P Results - Labs CBC & Chem 7: 06/04/19 22:33 06/04/19 22:33 Labs: Short CBC 06/04/19 Range/Units 22:33 WBC 13.1 H (4.3-11.1) K/mcL Hgb 12.4 L (12.9-16.9) g/dL Hct 37.3 L (37.5-50.1) % Plt Count 213 (140-400) K/mcL Neutrophils # 8.6 (1.6-8.9) K/mcL BMP 06/04/19 22:33 Sodium 134 L Potassium 4.2 Chloride 89 L Carbon Dioxide 35 H BUN 31 H Creatinine 1.44 H Glucose 87 Calcium 10.5 H Cardiac Enzymes 09/24/19 Range/Units 22:33 Troponin I 0.03 (< 0.04) ng/mL - ABG Interpretation ABG results: 06/05/19 02:47 ABG pH 7.43 ABG pCO2 60 H ABG pO2 73 L ABG HCO3 39 H ABG Total CO2 41 H ABG O2 Saturation 94 L ABG Base Excess 13 H - Impressions ITS Impressions Chest X-Ray 06/04/19 22:45 IMPRESSION: Moderate to severe CHF with right pleural effusion. Superimposed pneumonia not excluded. D/ / Jimenez Simon MD / Jimenez Simon MD Interpreting Provider: Jimenez Simon MD Chest CT 06/05/19 02:42 IMPRESSION: 1. Constellation of findings within the lungs is most consistent with moderate to severe CHF, including bilateral pleural effusions and interstitial pulmonary edema. A left PleurX catheter is in place. 2. Partial consolidation of the bilateral lower lobes likely reflects passive atelectasis, though aspiration or pneumonia are also diagnostic considerations. 3. Additional scattered ground-glass and nodular opacities throughout both lungs likely reflects a combination of asymmetric edema and superimposed pneumonia. 4. Interval progression of lymphadenopathy throughout the chest mediastinum, most consistent with progressive lymphoma. 5. Stable splenomegaly and bulky lymphadenopathy within the upper abdomen, consistent with patient's known history of lymphoma. 6. Stable abdominal ascites. 7. Cholelithiasis. D/ / Fredrick Abdullahi MD / Fredrick Abdullahi MD Interpreting Provider: Fredrick Abdullahi MD - Time Spent With Patient Total time spent is greater than 50% in coordination of care (as documented) at patient's floor/unit and/or counseling patient:
[2019-06-05] MEDS ORDERED: *HR* Atropine Sulfate 1 MG/10 ML SYRINGE ONE (04:30)
[2019-06-05] MEDS ORDERED: *HR* Atropine Sulfate 1 MG/10 ML SYRINGE IVP STA (04:37)
[2019-06-05] MEDS: *HR* Heparin 5,000 UNIT/ML VIAL SQ SCH ×2 (06:04→17:19)
[2019-06-05] MEDS ORDERED: Furosemide 40 MG TABLET PO SCH (08:00)
--- NOTE | 2019-06-05 08:26 | Pulmonology Consult Note ---
<Letitia Paul - Last Filed: 06/05/19 14:05> Date of Encounter: 06/05/19 Time of Encounter: 08:26 Assessment and Plan (1) Acute and chronic respiratory failure Current Visit: No Status: Acute Patient presented with acute and chronic respiratory failure with hypoxia secondary to fluid overload from HFpEF exacerbation, noncompliance with diur etics for at least 2 days, possible pneumonia, and dysfunction with drainage of his Pleurx catheter. -Afebrile, hemodynamically stable -SPO2 97% on 3L -BNP 677 -lactic acid 0.8 -ABG: pH 7.43, pCO2 60, pO2 73, HCO3 35 -chest CT showing moderate to severe CHF with bilateral pleural effusions and interstitial pulmonary edema. Scattered ground glass opacities that may be edema and superimposed pneumonia. Interval progression of lymphadenopathy throughout the chest and mediastinum, most consistent with progressive lymphoma. -CXR showing moderate to severe CHF with right pleural effusion. plan: -continue Zosyn (started 06/05) -continue lasix 40mg IV BID -will discuss with painter barrel to evaluate Pleurx catheter for possible blockage and drain. -pro-calcitonin ordered -continue home spironolactone 100mg daily -continue supplemental oxygen and BiPAP as needed -continue home Symbicort (2) Mobitz (type) II atrioventricular block Current Visit: Yes Status: Acute Patient developed new Mobitz type II AV block found on EKG on 06/05/2019. Patient had been bradycardiac in the 20s and 30s however corrected after one dose of atropine and sustained heart rate in 50s. -Etiology is undetermined however consider possibly secondary to significance valvular dysfunction of severe aortic stenosis and moderate mitral stenosis, th yroid disorder. Does not appear to be ischemic in nature. -Repeat EKG showed first-degree AV block. -HR 50s stable, BP stable -troponin 0.03, 0.03 -electrolytes WNL Plan -After a thorough discussion with the patient and his family he decided that he did not want to pacemaker inserted despite the risk of fatal arrhythmia due to new Mobitz type II AV block this a.m. He stated he also had refused an aortic valve replacement a while back when discussed with his route sales driver at [facility] and did not want invasive treatment. -cardiology consulted and following. Appreciate recommendations. They had recommended pacemaker. -patient has stated that he does not want chest compressions. He requested code status of DNR CCA DNI -TSH ordered -trend troponin -continue cardiac telemetry -continue supportive care (3) CHF exacerbation Current Visit: Yes Status: Acute HFpEF exacerbation. -Patient noncompliant with diuretics for at least a couple days. -BNP 677 -11/2018 TTE: EF 55%, severe aortic stenosis, moderate mitral stenosis. -chest CT showing moderate to severe CHF with bilateral pleural effusions and interstitial pulmonary edema. Scattered ground glass opacities that may be edema and superimposed pneumonia. Interval progression of lymphadenopathy throughout the chest and mediastinum, most consistent with progressive lymphoma. -CXR showing moderate to severe CHF with right pleural effusion. plan: -continue diuresis with Lasix 40 IV b.i.d. -continue home spironolactone -strict I&O -Daily weight (4) Bradycardia Current Visit: Yes Status: Acute see Mobitz type II assessment and plan (5) Pneumonia Current Visit: No Status: Acute Concern for possible pneumonia on chest CT along with patient presented with acute on chronic respiratory failure. -Afebrile, hemodynamically stable -chest CT showing moderate to severe CHF with bilateral pleural effusions and interstitial pulmonary edema. Scattered ground glass opacities that may be edema and superimposed pneumonia. Interval progression of lymphadenopathy throughout the chest and mediastinum, most consistent with progressive lymphoma. -CXR showing moderate to severe CHF with right pleural effusion. -plan as above (6) Acute metabolic encephalopathy Current Visit: No Status: Acute Resolved. This was transient and likely secondary to hypoxia from acute on chronic respiratory failure. (7) CKD (chronic kidney disease) stage 3, GFR 30-59 ml/min Current Visit: No Status: Chronic History of chronic kidney disease stage III. -Creatinine 1.44 he is at his baseline -baseline creatinine 1.4-1.5 -baseline GFR 47-53 -continue to monitor serum creatinine -strict I&O -continue renal protective strategy including renal dose medications and avoid nephrotoxic agents (8) Cirrhosis of liver Current Visit: No Status: Chronic History of liver cirrhosis taking Lasix, spironolactone, nadolol. Patient is unsure of varices or portal hypertension. In [facility] cannot find endoscopy report. -Continue Lasix and spironolactone. Holding Nadolol due to BP and heart rate. (9) Follicular lymphoma Current Visit: No Status: Chronic History of known follicular lymphoma for which was diagnosed in 2012 and his last chemotherapy was in 2016. No radiation treatment. He follows with the oncologist Dr. Rogers. -chest CT showing nterval progression of lymphadenopathy throughout the chest and mediastinum, most consistent with progressive lymphoma. -Patient can follow up with oncologist Dr. Rogers about the CT chest showing progression of lymphadenopathy (10) Type 2 diabetes mellitus Current Visit: No Status: Chronic History of type II diabetes that is taking insulin. -Glucose controlled -continue Levemir 20 units HS -continue low-dose sliding scale insulin -continue Accu check -diabetic diet (11) DVT prophylaxis Current Visit: No Status: Acute Heparin SQ History of Present Illness Consult date: 06/05/19 Reason for consult: dyspnea Chief complaint: Shortness of breath History of present illness: Mr. Cross is a 74-year-old male with a past medical history of severe aortic stenosis, HFpEF, s/p Pleurx catheter, cirrhosis, follicular lymphoma diagnosed in 2012, liver cirrhosis, diabetes, CKD who presented to [facility] complaining of shortness of breath. Initial presentation the patient was poorly responsive to verbal and painful stimuli and he was noted to have a heart rate in the 20s and 30s. He was transferred to the ICU and given a dose of atropine that improved the bradycardia. On EKG he was noted to have a mobitz type II. Pacer pads were placed on his chest. Due to imaging showing concerns for pneumonia and him having acute on chronic hypoxic respiratory failure he was given Zosyn and Lasix. He was placed on BiPAP. On my examination of the patient is resting comfortably on BiPAP. He reported that his shortness of breath came on suddenly yesterday. He had dyspnea on exertion. He reported that he had not taken his Lasix or Aldactone in at least 2 days due to it making him urinate more often. Of note, he had the PLeurx catheter placed in March 2019 due to recurrent large left pleural effusions requiring thoracentesis. The patient's family reported that he is to have his Pleurx catheter drained every 1 to [address] Funes told him if it drains less than 100 mL than to call the office. Last time he had a drained was 2 weeks ago. They tried to drainage to few days ago and only a few trips came out. They called Dr. Saadlla's office who told him to go to hospital and have it drained. He denied having fever, chills, wheezing, cough, sputum production, malaise. The patient had seen the route sales driver whom recommended pacemaker however the patient requested that we speak with his to discuss. His heart rate has been stable in the 50s. He is tolerated the BiPAP well with appropriate oxygen saturation. Currently pending our echocardiogram, TSH. Continuing Zosyn and Lasix for diuresis. Past Med Surg Social Fam HX - Past Medical History Attestation: Yes The following information was validated with the patient. Source: patient Medical history: arthritis, cancer, cirrhosis, CHF, COPD, diabetes, GERD, hyperlipidemia, hypertension, kidney stones, liver disease, renal disease, valvular heart disease (Severe aortic stenosis), other Additional medical history: Follicula lymphoma. 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 Ascites. Hyperuricemia. Hyponatremia. Hyperkalemia. Aortic stenosis. Glueosuria. cardiomegaly. heart murmur. ascites Psychiatric history: no psych history - Past Surgical History Surgical History: orthopedic, other (Bone graft right hip), other (Eye surgery, retinal surgery, A port) Additional surgical history: eye surg, right wrist surgery, A-PORT, cancer testing - Social History Smoking Status: Former smoker Smokeless Tobacco Status: No Alcohol use: none Drug use: none - Family History Daughter Hx Family Cancer: Yes (Breast) Mother Adopted: No Family Member Ethnicity: Non- Living Status: Still Living Hx Family Cardiac Disorders: Yes (CAD with stents) Hx Family Respiratory Disorders: No Hx Family Cancer: No Hx Family GI Disorders: No Hx Family Endocrine Disorder: Yes Hx Family Neuromuscular Disorders: No Hx Family Neurologic Disorders: No Hx Family HEENT Disorders: No Hx Family Autoimmune Disorders: No Father Adopted: No Family Member Ethnicity: Non- Living Status: Hx Family Cardiac Disorders: No Hx Family Respiratory Disorders: No Hx Family Cancer: Yes (Lung) Hx Family GI Disorders: No Hx Family Endocrine Disorder: No Hx Family Neuromuscular Disorders: No Hx Family Neurologic Disorders: No Hx Family HEENT Disorders: No Hx Family Autoimmune Disorders: No Medications and Allergies Aspirin 81 mg PO DAILY 11/06/18 [History] Docusate [Colace] 100 mg PO DAILY PRN 11/06/18 [History] Insulin Regular, Human [Novolin R] 0 - 18 unit SQ TIDWM 11/06/18 [History] Multivitamin [One Daily] 1 tab PO DAILY 11/06/18 [History] Ondansetron HCl [Zofran] 4 mg PO Q6H PRN 11/06/18 [History] Pantoprazole Sodium [Protonix] 40 mg PO DAILY 11/06/18 [History] Spironolactone [Aldactone] 100 mg PO DAILY 11/06/18 [History] DiphenhydraMINE [Benadryl] 25 mg PO Q6HR PRN 11/26/18 [History] Gabapentin [Neurontin] 300 mg PO TID 11/26/18 [History] Tamsulosin HCl [Flomax] 0.4 mg PO DAILY 11/26/18 [History] Cholecalciferol (Vitamin D3) [Dialyvite Vitamin D] 5,000 units PO DAILY 02/27/19 [History] Guaifenesin [Mucinex] 600 mg PO BID PRN 02/27/19 [History] Nadolol 20 mg PO DAILY 02/27/19 [History] [place]-3S/Dha/Epa/Fish Oil [Fish Oil 1,200 mg Softgel] 1,200 mg PO BID 02/27/19 [History] Fish Oil/Dha/Epa [Fish Oil 1,200 mg Fish Oil] 1 each PO DAILY 03/16/19 [History] LORazepam [Ativan] 0.5 mg PO BID PRN 03/18/19 [History] Furosemide [Lasix] 40 mg PO BIDDIURETIC #60 tablet 03/22/19 [Rx] Ascorbic Acid [Vitamin C] 1,000 mg PO DAILY 03/25/19 [History] Cinnamon Bark [Cinnamon] 1,000 mg PO DAILY 03/25/19 [History] Fluticasone/Vilanterol [Breo Ellipta 200-25 Mcg INH] 1 each IH DAILY 03/25/19 [History] Insulin Glargine,Hum.rec.anlog [Basaglar Kwikpen U-100] 20 unit SQ HS 03/25/19 [History] Oxygen 1 each .ROUTE AD 03/25/19 [History] Prochlorperazine Maleate [Compazine] 10 mg PO Q6HR 03/25/19 [History] Oxycodone HCl 15 mg PO BID PRN 06/04/19 [History] Allergy/AdvReac Type Severity Reaction Status Date / Time chlorhexidine Allergy Blister Verified 06/04/19 22:11 band-aids AdvReac Blister Uncoded 03/25/19 14:48 All Systems: The remainder of the systems were reviewed and are negative - Constitutional Constitutional: no chills, no fatigue, no fever(s), no headache(s) - EENT Nose, mouth and throat: no sore throat - Cardiovascular Cardiovascular: dyspnea on exertion, no chest pain, no edema, no leg edema, no lightheadedness, no palpitations - Respiratory Respiratory: no cough, no wheezing, no excessive phlegm production, no change in phlegm color - Gastrointestinal Gastrointestinal: no abdominal pain, no nausea, no vomiting - Genitourinary Genitourinary: no difficulty urinating, no dysuria - Musculoskeletal Musculoskeletal: no joint swelling, no myalgias - Integumentary Integumentary: no rash, no jaundice - Neurological Neurological: no dizziness, no headache(s) - Endocrine Endocrine: no fatigue Physical Examination Vital Signs: Vital Signs, Last 4 Hours Temp Pulse Resp BP Pulse Ox 06/05/19 06:42 96.4 F L 06/05/19 06:00 51 12 118/47 99 06/05/19 05:09 51 20 113/43 99 General appearance: no acute distress, alert Eyes: nonicteric ENT: oropharynx moist Neck: supple Effort: normal Inspection: normal Auscultation: bilateral: diminished breath sounds (bases), rales Cardiovascular: regular rate and rhythm, murmur noted (3/6 Systolic murmur) Integumentary: normal, other (Bruising and scabs bilateral lower extremities) Extremities: no edema, pulses normal Musculoskeletal: no deformities normal mental status, non-focal exam mood appropriate, affect normal Results - Laboratory Findings CBC and BMP: 06/04/19 22:33 06/04/19 22:33 ABG ABG pH 7.43 pH Units (7.32-7.45) 06/05/19 02:47 ABG pCO2 60 mmHg (35-45) H 06/05/19 02:47 ABG pO2 73 mmHg (85-104) L 06/05/19 02:47 ABG O2 Saturation 94 % (95-98) L 06/05/19 02:47 PT/INR, D-dimer PT 15.2 Seconds (9.4-12.1) H 06/04/19 22:33 Abnormal lab findings: Abnormal lab results WBC 13.1 K/mcL (4.3-11.1) H 06/04/19 22:33 Hgb 12.4 g/dL (12.9-16.9) L 06/04/19 22:33 Hct 37.3 % (37.5-50.1) L 06/04/19 22:33 MPV 9.2 fL (9.4-12.4) L 06/04/19 22:33 Monocytes # 1.6 K/mcL (0.0-1.3) H 06/04/19 22:33 PT 15.2 Seconds (9.4-12.1) H 06/04/19 22:33 ABG pCO2 60 mmHg (35-45) H 06/05/19 02:47 ABG pO2 73 mmHg (85-104) L 06/05/19 02:47 ABG HCO3 39 mEq/L (21-27) H 06/05/19 02:47 ABG Total CO2 41 mEq/L (20-26) H 06/05/19 02:47 ABG O2 Saturation 94 % (95-98) L 06/05/19 02:47 ABG Base Excess 13 mEq/L (-2 to 3) H 06/05/19 02:47 Sodium 134 mEq/L (136-145) L 06/04/19 22:33 Chloride 89 mEq/L (98-107) L 06/04/19 22:33 Carbon Dioxide 35 mEq/L (23-29) H 06/04/19 22:33 BUN 31 mg/dL (8-23) H 06/04/19 22:33 Creatinine 1.44 mg/dL (0.70-1.30) H 06/04/19 22:33 Est GFR ( Amer) 58 (> 60) L 06/04/19 22:33 Est GFR (Non-Af Amer) 48 (> 60) L 06/04/19 22:33 POC Glucose 64 mg/dL (70-99) L 06/05/19 02:56 Calcium 10.5 mg/dL (8.6-10.3) H 06/04/19 22:33 B-Natriuretic Peptide 677 pg/mL (Less than 100) H 06/04/19 22:33 Nasal Screen MRSA (PCR) DETECTED (Not Detect) A 06/05/19 03:49 - Microbiology Findings Microbiology Findings: Microbiology, Last 48 Hours 06/05/19 05:01 Blood Culture - Preliminary Peripheral Venipuncture Culture is incubating and being continuously monitored for growth. Final report to follow. 06/05/19 05:00 Blood Culture - Preliminary Peripheral Venipuncture Culture is incubating and being continuously monitored for growth. Final report to follow. - Clinical Findings Intake & Output: Intake & Output 06/04/19 06/05/19 06/05/19 23:59 07:59 15:59 Output Total 550 / 550 Balance -550 / -550 Weight 96.026 kg Consult Discharge Plan - Plan Referrals: Tonja Cook CNP [Primary Care Provider] - <Ann-Marie Patel - Last Filed: 06/05/19 15:47> Date of Encounter: 06/05/19 All Systems: The remainder of the systems were reviewed and are negative Physical Examination Vital Signs: Vital Signs, Last 4 Hours Pulse Resp BP Pulse Ox 06/05/19 14:00 55 20 111/54 92 06/05/19 13:30 14 125/47 97 06/05/19 13:00 58 12 125/47 97 06/05/19 12:00 55 18 105/60 98 Results - Laboratory Findings CBC and BMP: 06/04/19 22:33 06/04/19 22:33 ABG ABG pH 7.43 pH Units (7.32-7.45) 06/05/19 02:47 ABG pCO2 60 mmHg (35-45) H 06/05/19 02:47 ABG pO2 73 mmHg (85-104) L 06/05/19 02:47 ABG O2 Saturation 94 % (95-98) L 06/05/19 02:47 PT/INR, D-dimer PT 15.2 Seconds (9.4-12.1) H 06/05/19 09:00 Abnormal lab findings: Abnormal lab results WBC 13.1 K/mcL (4.3-11.1) H 06/04/19 22:33 Hgb 12.4 g/dL (12.9-16.9) L 06/04/19 22:33 Hct 37.3 % (37.5-50.1) L 06/04/19 22:33 MPV 9.2 fL (9.4-12.4) L 06/04/19 22:33 Monocytes # 1.6 K/mcL (0.0-1.3) H 06/04/19 22:33 PT 15.2 Seconds (9.4-12.1) H 06/05/19 09:00 ABG pCO2 60 mmHg (35-45) H 06/05/19 02:47 ABG pO2 73 mmHg (85-104) L 06/05/19 02:47 ABG HCO3 39 mEq/L (21-27) H 06/05/19 02:47 ABG Total CO2 41 mEq/L (20-26) H 06/05/19 02:47 ABG O2 Saturation 94 % (95-98) L 06/05/19 02:47 ABG Base Excess 13 mEq/L (-2 to 3) H 06/05/19 02:47 Sodium 134 mEq/L (136-145) L 06/04/19 22:33 Chloride 89 mEq/L (98-107) L 06/04/19 22:33 Carbon Dioxide 35 mEq/L (23-29) H 06/04/19 22:33 BUN 31 mg/dL (8-23) H 06/04/19 22:33 Creatinine 1.44 mg/dL (0.70-1.30) H 06/04/19 22:33 Est GFR ( Amer) 58 (> 60) L 06/04/19 22:33 Est GFR (Non-Af Amer) 48 (> 60) L 06/04/19 22:33 POC Glucose 64 mg/dL (70-99) L 06/05/19 02:56 Calcium 10.5 mg/dL (8.6-10.3) H 06/04/19 22:33 B-Natriuretic Peptide 677 pg/mL (Less than 100) H 06/04/19 22:33 Nasal Screen MRSA (PCR) DETECTED (Not Detect) A 06/05/19 03:49 - Microbiology Findings Microbiology Findings: Microbiology, Last 48 Hours 06/05/19 05:01 Blood Culture - Preliminary Peripheral Venipuncture Culture is incubating and being continuously fernandez tored for growth. Final report to follow. 06/05/19 05:00 Blood Culture - Preliminary Peripheral Venipuncture Culture is incubating and being continuously monitored for growth. Final report to follow. - Clinical Findings Intake & Output: Intake & Output 06/04/19 06/05/19 06/05/19 23:59 07:59 15:59 Intake Total 100 / 100 Output Total 550 / 975 425 / 975 Balance -550 / -875 -325 / -875 Weight 96.026 kg - Attending Attestation I saw and evaluated this patient and my medical decision-making was reviewed with the Resident Physician. I agree with the documented findings, disposition and treatment plan as described except to the extent set forth below. We independently had [id number] contact with the patient I spent 40 minutes of Critical Care time with this patient. It involved decision making of high complexity to assess, manipulate, and support vital organ system failure and/or to prevent further life threatening deterioration of the patient's condition. The time involved in the performance of separately reportable procedures was not counted toward critical care time. Patient seen and examined at bedside Labs, radiology, chart personally reviewed. Management was reviewed during multidisciplinary critical care rounds. ENTRY LEVEL MECHANICAL ENGINEER: Patient is opening his eyes when I spoke with him following commands has some evidence of encephalopathy no focal neurological deficit. Pulm: Patient V/Q mismatch is complicated most likely hydrostatic pulmonary edema and bilateral pleural effusion consistent with the his diastolic heart failure and aortic stenosis patient is tolerating BiPAP for now patient does not want any endotracheal intubation mechanical ventilation and ICU team spoke with him and the family. Cards: Patient had Mobitz type II block which which got better with first-degree AV block and some episodic sinus bradycardia patient declined any pacemaker in the event of cardiac arrest patient does not want any resuscitation. To keep him on cardiac telemetry for now FEN-GI: Nothing by mouth as patient is on BiPAP Renal: Labs and output reviewed to do gentle diuresis. ID: To cover with broad-spectrum antibiotics for possible pneumonia Heme/Onc: Labs were reviewed Endo: Glucose Monitored Integ/MSK: Skin Care per routine ICU Nursing Protocol to prevent ulcers. Lines: All lines examined without evidence of infection : Dispo: We will keep him in the ICU for noninvasive ventilator therapy since the goals of care is change now patient can be transferred to stepdown unit needed CODE: [id number]
[2019-06-05] MEDS: Ascorbic Acid 500 MG TABLET PO SCH (08:48)
[2019-06-05] MEDS: Aspirin 81 MG TAB.CHEW PO SCH (08:48)
[2019-06-05] MEDS: Cholecalciferol (D-3) 1,000 UNIT (25MCG) TABLET PO SCH (08:48)
[2019-06-05] MEDS: Multivit/Ca/Min/Fe/FA 1 TAB TABLET PO SCH (08:48)
[2019-06-05] MEDS: Gabapentin 300 MG CAPSULE PO SCH ×3 (08:48→21:05)
[2019-06-05] MEDS: Furosemide 40 MG/4 ML VIAL IVP SCH ×2 (08:49→17:18)
[2019-06-05] MEDS: Piperacillin/Tazobactam 3.375 GM in 0.9 % Sodium Chloride Mini Bag 100 ML IVPB SCH ×3 (08:49→23:24)
[2019-06-05] MEDS ORDERED: NON-FORMULARY MEDICATION 1 EACH EACH (Omega-3s/Dha/Epa/Fish Oil [Fish Oil 1,200 Mg Softgel PO SCH (09:00)
[2019-06-05] MEDS: Insulin LISPRO 300 UNITS/3 ML VIAL SQ SCH ×3 (09:06→16:07)
[2019-06-05 09:21] LABS: INR 1.3; Prothrombin Time 15.2 Seconds (9.4-12.1)
[2019-06-05] MEDS: Budesonide/Formoterol 160/4.5 1 PUFF INH IH SCH (09:47)
--- NOTE | 2019-06-05 10:15 | Cardiology Consult Note ---
<Dimitry Bullock - Last Filed: 06/05/19 10:48> Date of Encounter: 06/05/19 Time of Encounter: 08:30 Assessment and Plan (1) Bradycardia Current Visit: Yes Status: Acute EKG 06/05/19 at 0439 am shows HR 23 bpm, possible 2:1 AV block sinus bradycardia. Per reports responded to 0.5 mg atropine x1. Agree with holding nadalol. Check TSH. HR now in the 50's, sinus bradycardia. Monitor telemetry. He denies dizziness or syncope. We will follow with you. (2) Severe aortic stenosis Current Visit: No Status: Chronic Known severe aortic stenosis. Evaluated for TAVR and declined due to multiple co-morbidities. Out-pt f/u. Discussion w patient/family: The assessment and plan as outlined above was discussed with the patient and/or family members who expressed understanding and agreement. All questions were answered. Thank you for involving us in the care of your patient. Please call with any questions. History of Present Illness Consult date: 06/05/19 Consult reason: bradycardia Chief complaint: Respiratory distress History of present illness: Mr. Cross is a 74 year old male with past medical history significant for severe aortic stenosis, follicular lymphoma, chronic pleural effusions with pleurex catheter, COPD, CKD, liver cirrhosis, esophageal varices. He presented with respiratory distress. He is currently on bipap in the ICU. Cardiology consulted after he developed bradycardia with HR 20's, AV block. He was given atropine 0.5mg with good response. HR now in the 50's. Patient states that he was working with adhesives at home when he became SOB. He appears to be confused. Reports history of bradycardia at night. Denies dizziness or syncope. denies chest pain Currently on nadalol for esophageal varices. Past Med Surg Social Fam HX - Past Medical History Medical history: arthritis, cancer, cirrhosis, CHF, COPD, diabetes, GERD, hyperl ipidemia, hypertension, kidney stones, liver disease, renal disease, valvular heart disease, other Additional medical history: Follicula lymphoma. 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 Ascites. Hy peruricemia. Hyponatremia. Hyperkalemia. Aortic stenosis. Glueosuria. cardiomegaly. heart murmur. ascites Psychiatric history: no psych history - Past Surgical History Surgical History: orthopedic, other (Bone graft right hip), other (Eye surgery, retinal surgery, A port) Additional surgical history: eye surg, right wrist surgery, A-PORT, cancer testing - Social History Smoking Status: Former smoker Smokeless Tobacco Status: No Alcohol use: none Drug use: none - Family History Daughter Hx Family Cancer: Yes (Breast) Mother Adopted: No Family Member Ethnicity: Non- Living Status: Still Living Hx Family Cardiac Disorders: Yes (CAD with stents) Hx Family Respiratory Disorders: No Hx Family Cancer: No Hx Family GI Disorders: No Hx Family Endocrine Disorder: Yes Hx Family Neuromuscular Disorders: No Hx Family Neurologic Disorders: No Hx Family HEENT Disorders: No Hx Family Autoimmune Disorders: No Father Adopted: No Family Member Ethnicity: Non- Living Status: Hx Family Cardiac Disorders: No Hx Family Respiratory Disorders: No Hx Family Cancer: Yes (Lung) Hx Family GI Disorders: No Hx Family Endocrine Disorder: No Hx Family Neuromuscular Disorders: No Hx Family Neurologic Disorders: No Hx Family HEENT Disorders: No Hx Family Autoimmune Disorders: No Medications and Allergies Aspirin 81 mg PO DAILY 11/06/18 [History] Docusate [Colace] 100 mg PO DAILY PRN 11/06/18 [History] Insulin Regular, Human [Novolin R] 0 - 18 unit SQ TIDWM 11/06/18 [History] Multivitamin [One Daily] 1 tab PO DAILY 11/06/18 [History] Ondansetron HCl [Zofran] 4 mg PO Q6H PRN 11/06/18 [History] Pantoprazole Sodium [Protonix] 40 mg PO DAILY 11/06/18 [History] Spironolactone [Aldactone] 100 mg PO DAILY 11/06/18 [History] DiphenhydraMINE [Benadryl] 25 mg PO Q6HR PRN 11/26/18 [History] Gabapentin [Neurontin] 300 mg PO TID 11/26/18 [History] Tamsulosin HCl [Flomax] 0.4 mg PO DAILY 11/26/18 [History] Cholecalciferol (Vitamin D3) [Dialyvite Vitamin D] 5,000 units PO DAILY 02/27/19 [History] Guaifenesin [Mucinex] 600 mg PO BID PRN 02/27/19 [History] Nadolol 20 mg PO DAILY 02/27/19 [History] [place]-3S/Dha/Epa/Fish Oil [Fish Oil 1,200 mg Softgel] 1,200 mg PO BID 02/27/19 [History] Fish Oil/Dha/Epa [Fish Oil 1,200 mg Fish Oil] 1 each PO DAILY 03/16/19 [History] LORazepam [Ativan] 0.5 mg PO BID PRN 03/18/19 [History] Furosemide [Lasix] 40 mg PO BIDDIURETIC #60 tablet 03/22/19 [Rx] Ascorbic Acid [Vitamin C] 1,000 mg PO DAILY 03/25/19 [History] Cinnamon Bark [Cinnamon] 1,000 mg PO DAILY 03/25/19 [History] Fluticasone/Vilanterol [Breo Ellipta 200-25 Mcg INH] 1 each IH DAILY 03/25/19 [History] Insulin Glargine,Hum.rec.anlog [Basaglar Kwikpen U-100] 20 unit SQ HS 03/25/19 [History] Oxygen 1 each .ROUTE AD 03/25/19 [History] Prochlorperazine Maleate [Compazine] 10 mg PO Q6HR 03/25/19 [History] Oxycodone HCl 15 mg PO BID PRN 06/04/19 [History] Allergy/AdvReac Type Severity Reaction Status Date / Time chlorhexidine Allergy Blister Verified 06/04/19 22:11 band-aids AdvReac Blister Uncoded 03/25/19 14:48 All Systems Review: The remainder of the systems were reviewed and are negative Physical Examination Vital Signs, Last 4 Hours Temp Pulse Resp BP Pulse Ox 06/05/19 10:04 97.5 F L 06/05/19 09:00 54 18 136/46 99 06/05/19 08:00 51 12 117/47 98 06/05/19 07:00 50 14 132/52 100 06/05/19 06:42 96.4 F L General: Conversant, No Apparent Distress, Other (On bipap, confused) HEENT: Atraumatic, Normocephaly, Mucus Membranes Moist Neck: No JVD, Normal carotid pulses Cardiac: Reg Rate and Rhythm, Normal S1 and S2, No Murmur Lungs: Other (Lung sounds diminished) Neuro: Alert and responsive, No focal deficits noted Abdomen: Soft, Non-Tender Skin: No rashes noted on visualized skin Musculoskeletal: No Chest Wall Tenderness Extremities: No Clubbing, No Cyanosis, No Edema, Normal Pulses Results 06/04/19 22:33 06/04/19 22:33 Lab Results 06/04/19 06/04/19 06/04/19 22:33 22:33 22:33 WBC 13.1 H Hgb 12.4 L Hct 37.3 L Plt Count 213 INR 1.3 APTT 34.4 Sodium 134 L Potassium 4.2 Chloride 89 L Carbon Dioxide 35 H BUN 31 H Creatinine 1.44 H Glucose 87 Calcium 10.5 H Troponin I 0.03 B-Natriuretic Peptide 06/04/19 06/05/19 06/05/19 22:33 09:00 09:00 WBC Hgb Hct Plt Count INR 1.3 APTT Sodium Potassium Chloride Carbon Dioxide BUN Creatinine Glucose Calcium Troponin I 0.03 B-Natriuretic Peptide 677 H - Imaging and Cardiology Echo: pending - EKG Interpretation EKG results cardiology: personally reviewed Consult Discharge Plan - Plan Referrals: Tonja Cook CNP [Primary Care Provider] - <Bridger Borjas A - Last Filed: 06/05/19 20:58> Date of Encounter: 06/05/19 - Attending Attestation I have personally performed a face to face evaluation on this patient. I have reviewed and agree with the documented findings and care plan as documented by the ROLLER. History and Exam by me shows: Patient with history of severe aortic stenosis, deemed not a candidate for TAVR or SAVR, noted to have Mobitz 2 AV block block on telemetry last night. He does not report specific symptoms of bradycardia. Even if indicated, he declines PPM Thanks for the consult, please call with questions. Bridger Borjas MD [facility] Assessment and Plan Discussion w patient/family: The assessment and plan as outlined above was discussed with the patient and/or family members who expressed understanding and agreement. All questions were answered. Thank you for involving us in the care of your patient. Please call with any questions. History of Present Illness History of present illness: Mr. Cross is a 74 year old male All Systems Review: The remainder of the systems were reviewed and are negative Physical Examination Vital Signs, Last 4 Hours Temp Pulse Resp BP Pulse Ox 06/05/19 20:00 63 17 111/56 90 06/05/19 19:00 97 F L 60 17 110/57 89 09/25/19 18:00 59 14 116/68 93 06/05/19 17:00 55 18 104/48 90 Results 06/04/19 22:33 06/04/19 22:33 Lab Results 06/04/19 06/04/19 06/04/19 22:33 22:33 22:33 WBC 13.1 H Hgb 12.4 L Hct 37.3 L Plt Count 213 INR 1.3 APTT 34.4 Sodium 134 L Potassium 4.2 Chloride 89 L Carbon Dioxide 35 H BUN 31 H Creatinine 1.44 H Glucose 87 Calcium 10.5 H Troponin I 0.03 B-Natriuretic Peptide TSH 06/04/19 06/05/19 06/05/19 22:33 09:00 09:00 WBC Hgb Hct Plt Count INR 1.3 APTT Sodium Potassium Chloride Carbon Dioxide BUN Creatinine Glucose Calcium Troponin I 0.03 B-Natriuretic Peptide 677 H TSH 06/05/19 06/05/19 14:22 14:22 WBC Hgb Hct Plt Count INR APTT Sodium Potassium Chloride Carbon Dioxide BUN Creatinine Glucose Calcium Troponin I 0.03 B-Natriuretic Peptide TSH 1.832
--- NOTE | 2019-06-05 10:42 | Electrocardiograph Report ---
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
--- NOTE | 2019-06-05 14:05 | Internal Med Progress Note ---
Hospitalist Progress Note - Encounter Date of Encounter: 06/05/19 Time of Encounter: 13:58 - Subjective Interval History: Hospitalists ICU note: This is 74-year-old male with multiple medical problems including severe aortic stenosis, diastolic CHF, follicular lymphoma with last chemotherapy several years ago, chronic recurrent pleural effusions with a Pleurx catheter (placed March 2019), COPD, type 2 diabetes mellitus ,chronic kidney disease history, l iver cirrhosis with underlying varices on Nadolol. Patient was admitted on June 05 in the morning for acute hypoxemic respiratory failure. He apparently had a failed attempt at draining fluid from his Pleurx catheter recently, on arrival he was placed on BiPAP. He was hemodynamically stable. Chest x-ray showed pulmonary vascular congestion, concern for aspiration. Patient was diuresed with IV Lasix and admitted to the intensive care unit. While in detail. He did have bradycardia with a heart rate in the 20s, second-degree AV block. He was given atropine with good response and we continue to hold is not well. His heart rate is now in the 50s and his blood pressure is stable. Patient was seen in consult by cardiology I was recommending a pacemaker, possible TAVR in the near future should patient decide to do this. Presently patient is adamantly stating he does not want a pacemaker or any surgical intervention. He understands that he could without these. Family is pr esent at bedside and we are continuing to have discussions with them. Patient is on empiric antibiotics for possible pneumonia, Zosyn day #1. He continues on IV Lasix for diuresis. Patient had altered mental status on arrival, likely due to sepsis. His initial glucose was low at 67 but is now improved. Ammonia level is normal at 33. Initial ABG showed mild CO2 retention with a pH of 7.43, PCO2 60, PO2 of 73. BUN 31 creatinine 1.44. Blood cell count 13.1, hemoglobin 12.4, platelets 213,000. Since admission patient has improved. He is now conversant and awake. He is denying any chest pain or shortness of breath. He does state he feels very weak. He has no nausea or vomiting. No abdominal pain. No fevers or chills. Other than that mentioned above a 10 point review of systems is negative. - Exam Vitals: Temp Pulse Resp BP Pulse Ox 97.5 F L 57 14 123/50 98 06/05/19 10:04 06/05/19 10:00 06/05/19 10:00 06/05/19 10:00 06/05/19 10:00 Exam: . General: Awake alert oriented 3, chronically ill-appearing, conversant, pleasant Skin is pale, warm and dry OP dry Neck supple lungs show coarse breath sounds bilaterally, no wheezes. He does have a port which is located beneath the skin in the left anterior chest wall Heart regular rate and rhythm with systolic ejection murmur best heard at left second intercostal space Abdomen is soft, mildly distended, nontender, normoactive bowel sounds Stromally show trace edema, cap refill less than 2.5 seconds, distal pulses intact Neurlogical is grossly nonfocal - Summary of Assessment and Plan Summary of Assessment and Plan: Acute on chronic combined hypoxic and hypercarbic respiratory failure: -Multifactorial -Patient has pleural effusions, possible pneumonia, also hypercarbia which can all contribute to altered mental status. -Continue treatment for pneumonia, currently day #1 of Zosyn, add vancomycin as his MRSA screen is positive -Check urinalysis -Follow up on culture data Altered mental status: -Ruled out hypercarbia with ABG and his glucose was 67mg/dl at the time of transfer to ICU. In any case, we administered a dose of D50% to ensure his glycemic values remain higher into the 100s to avoid potential complications given his poor intake. He was not hypoxic either.NH3 nml. No focal findings apparent to suggest CVA. 2nd Degree Heart Block, Mobitz Type 2 -Has improved since stopping the Adderall, also did receive 1 dose of atropine this morning -We ongoing discussions regarding pacemaker. I discussed the case with cardiology. Avoid any AV theo agents. Acute CHF -Multifactorial likely due to severe aortic stenosis, will await echocardiogram to comment on whether or not there is a diastolic dysfunction component -Continue to diuresis as renal function allows, Zosyn monitor electrolytes and r enal function -Cannot use beta alvaro due to bradycardia Severe Aortic Stenosis -Cardiology is following, may be a candidate for TAVR Mary procedure and is p atient will be high risk Diabetes Mellitus Type 2 -basal/bolus insulin, monitor Follicular lymphoma: - s/p chemotherapy and being followed by oncology. -has Port in right chest Type 2 diabetes mellitus: - He will remain on basal insulin coupled with insulin sliding scale Chronic kidney disease: Stage 3 -He received contrast with his CT. Closely monitor his CrCl and avoid further nephrotoxic insults. Cirhhosis with hx Varices -monitor, supportive care -do not suspect acute decomp DVT prophylaxis -SubQ heparin I discussed the case with the patient and multiple family members at bedside. Patient currently not wanting any procedures done, we are further discussing and will re-address CODE STATUS - Time Spent with Patient Total time spent is greater than 50% in coordination of care (as documented) at patient's floor/unit and/or counseling patient: Greater than 35 minutes Internal Medicine: Result - Labs CBC & Chem 7: 06/04/19 22:33 06/04/19 22:33 Labs: Short CBC 06/04/19 Range/Units 22:33 WBC 13.1 H (4.3-11.1) K/mcL Hgb 12.4 L (12.9-16.9) g/dL Hct 37.3 L (37.5-50.1) % Plt Count 213 (140-400) K/mcL Neutrophils # 8.6 (1.6-8.9) K/mcL BMP 06/04/19 22:33 Sodium 134 L Potassium 4.2 Chloride 89 L Carbon Dioxide 35 H BUN 31 H Creatinine 1.44 H Glucose 87 Calcium 10.5 H Cardiac Enzymes 06/04/19 06/05/19 Range/Units 22:33 09:00 Troponin I 0.03 0.03 (< 0.04) ng/mL - ABG Interpretation ABG results: ABG ABG pH 7.43 pH Units (7.32-7.45) 06/05/19 02:47 ABG pCO2 60 mmHg (35-45) H 06/05/19 02:47 ABG pO2 73 mmHg (85-104) L 06/05/19 02:47 ABG O2 Saturation 94 % (95-98) L 06/05/19 02:47 PT/INR, D-dimer PT 15.2 Seconds (9.4-12.1) H 06/05/19 09:00 - Impressions Impressions Chest X-Ray 06/04/19 22:45 IMPRESSION: Moderate to severe CHF with right pleural effusion. Superimposed pneumonia not excluded. D/ / Jimenez Simon MD / Jimenez Simon MD Interpreting Provider: Jimenez Simon MD Chest CT 06/05/19 02:42 IMPRESSION: 1. Constellation of findings within the lungs is most consistent with moderate to severe CHF, including bilateral pleural effusions and interstitial pulmonary edema. A left PleurX catheter is in place. 2. Partial consolidation of the bilateral lower lobes likely reflects passive atelectasis, though aspiration or pneumonia are also diagnostic considerations. 3. Additional scattered ground-glass and nodular opacities throughout both lungs likely reflect a combination of asymmetric edema and superimposed pneumonia. 4. Interval progression of lymphadenopathy throughout the chest and mediastinum, most consistent with progressive lymphoma. 5. Stable splenomegaly and bulky lymphadenopathy within the upper abdomen, consistent with patient's known history of lymphoma. 6. Stable abdominal ascites. 7. Cholelithiasis. D/ / 06/05/2019 08:01:46 Fredrick Abdullahi MD / [facility] Interpreting Provider: Fredrick Abdullahi MD Consult Discharge Plan - Plan Referrals: Tonja Cook, [facility] [Primary Care Provider] -
[2019-06-05] MEDS ORDERED: Perflutren Lipid Microsphere 1.3 ML in 0.9 % Sodium Chloride 8.7 ML IVP ONE (15:02)
[2019-06-05] MEDS ORDERED: Perflutren Lipid Microsphere 2 ML VIAL ONE (15:05)
[2019-06-05] MEDS ORDERED: Insulin LISPRO 300 UNITS/3 ML VIAL SQ SCH (21:00)
[2019-06-05] MEDS ORDERED: Insulin DETEMIR 100 UNIT/ML X5UNITS SQ SCH (21:00)
--- NOTE | 2019-06-05 21:39 | Electrocardiograph Report ---
[address] [address] Test Date: 2019-06-05 Pat Name: Chalo Cross Department: 109 Room: [facility] Gender: M Rounder Hand: : 1945 Requested By: [id number] Order Number: [id number] Reading MD: Emily Uriostegui Measurements Intervals [place] Rate: 47 P: 66 AK: 286 QRS: -14 QRSD: 102 T: 102 QT: 500 QTc: 463 Interpretive Statements SINUS BRADYCARDIA WITH FIRST DEGREE AV BLOCK LEFT VENTRICULAR HYPERTROPHY AND ST-T CHANGE Electronically Signed On 06-05-2019 21:37:47 EDT by Emily Uriostegui
[2019-06-06 04:14] LABS: Basophils # 0.1 K/mcL (0.0-0.2); Basophils % 0.5 %; Eosinophils # 0.2 K/mcL (0.0-0.6); Eosinophils % 1.6 %; Hematocrit 33.4 % (37.5-50.1); Hemoglobin 11.3 g/dL (12.9-16.9); Immature Granulocytes % 0.5 % (0-4); Lymphocytes # 2.9 K/mcL (0.6-4.6); Lymphocytes % 26.1 %; Mean Corpuscular HGB Conc 33.8 g/dL (31.6-35.5); Mean Corpuscular Hemoglobin 29.6 pg (28.0-33.3); Mean Corpuscular Volume 87.4 fL (83.0-100.0); Mean Platelet Volume 9.2 fL (9.4-12.4); Monocytes # 1.3 K/mcL (0.0-1.3); Monocytes % 12.1 %; Neutrophils # 6.5 K/mcL (1.6-8.9); Platelet Count 192 K/mcL (140-400); Red Blood Count 3.82 M/mcL (4.19-5.50); Red Cell Distribution Width 13.7 % (11.5-14.5); Segmented Neutrophils % 59.2 %; White Blood Count 10.9 K/mcL (4.3-11.1)
[2019-06-06 04:27] LABS: Calcium 10.2 mg/dL (8.6-10.3); Magnesium 1.8 mg/dL (1.6-2.6); Potassium 3.8 mEq/L (3.5-5.1)
[2019-06-06] MEDS: *HR* Heparin 5,000 UNIT/ML VIAL SQ SCH ×2 (05:29→17:50)
--- NOTE | 2019-06-06 07:00 | Pulmonology Progress Note ---
<Letitia Paul - Last Filed: 06/06/19 10:59> Date of Encounter: 06/06/19 Time of Encounter: 07:00 Assessment and Plan (1) Acute and chronic respiratory failure Current Visit: No Status: Acute Patient presented with acute and chronic respiratory failure with hypoxia secondary to fluid overload from HFpEF exacerbation, noncompliance with diur etics for at least 2 days, possible pneumonia, and dysfunction with drainage of his Pleurx catheter. -Afebrile, hemodynamically stable -SPO2 92% on 4L -BNP 677 -lactic acid 0.8 -pro-calcitonin 0.17 -ABG: pH 7.43, pCO2 60, pO2 73, HCO3 35 -chest CT showing moderate to severe CHF with bilateral pleural effusions and interstitial pulmonary edema. Scattered ground glass opacities that may be edema and superimposed pneumonia. Interval progression of lymphadenopathy throughout the chest and mediastinum, most consistent with progressive lymphoma. -CXR showing moderate to severe CHF with right pleural effusion. -Patient is clinically improving however can still appreciate rales in bilateral base of lungs. -Imaging shows large right-sided pleural effusion. plan: -stop Zosyn (started 06/05) and continue patient on doxycycline -continue lasix 40mg IV BID -will have family bring in connecting supplies for drainage of Pleurx catheter to drain today. -may possibly perform thoracentesis to drain right-sided pleural effusion. Will use ultrasound to evaluate and then discuss with patient if he would want thoracentesis. -continue home spironolactone 100mg daily -continue supplemental oxygen and BiPAP as needed -continue home Symbicort Qualifiers: Respiratory failure complication: hypoxia and hypercapnia Qualified Code(s): J96.21 - Acute and chronic respiratory failure with hypoxia; J96.22 - Acute and chronic respiratory failure with hypercapnia (2) Mobitz (type) II atrioventricular block Current Visit: Yes Status: Acute Patient developed new Mobitz type II AV block found on EKG on 06/05/2019. Patient had been bradycardiac in the 20s and 30s however corrected after one dose of atropine and sustained heart rate in 50s. -Etiology is undetermined however consider possibly secondary to significance valvular dysfunction of severe aortic stenosis and moderate mitral stenosis, thyroid disorder. Does not appear to be ischemic in nature. -Repeat EKG showed first-degree AV block. -HR 50s stable, BP stable -troponin 0.03, 0.03, 0.03 -electrolytes WNL -TSH 1.8 -patient denies chest pain, palpitations. Plan -After a thorough discussion with the patient and his family he decided that he did not want to pacemaker inserted despite the risk of fatal arrhythmia due to new Mobitz type II AV block this a.m. 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 Patient was alert and oriented times 3 with full capacity. -cardiology consulted and following. Appreciate recommendations. They had recommended pacemaker. Cardiology is now signed off as the patient does not want invasive management. -patient has stated that he does not want chest compressions. He requested code status of DNR CCA DNI. May discuss hospice with the patient and his family. -continue cardiac telemetry -continue supportive care (3) CHF exacerbation Current Visit: Yes Status: Acute HFpEF exacerbation. -Patient noncompliant with diuretics for at least a couple days. -BNP 677 -I&O: 1280/2485 -6403, appropriate urine output -11/2018 TTE: EF 55%, severe aortic stenosis, moderate mitral stenosis. -chest CT showing moderate to severe CHF with bilateral pleural effusions and interstitial pulmonary edema. Scattered ground glass opacities that may be edema and superimposed pneumonia. Interval progression of lymphadenopathy throughout the chest and mediastinum, most consistent with progressive lymphoma. -CXR showing moderate to severe CHF with right pleural effusion. plan: -continue diuresis with Lasix 40 IV b.i.d. -continue home spironolactone -strict I&O -Daily weight Qualifiers: Heart failure type: unspecified Qualified Code(s): I50.9 - Heart failure, unspecified (4) Bradycardia Current Visit: Yes Status: Acute see Mobitz type II assessment and plan (5) Pneumonia Current Visit: No Status: Acute Concern for possible pneumonia on chest CT along with patient presented with acute on chronic respiratory failure. -Afebrile, hemodynamically stable -chest CT showing moderate to severe CHF with bilateral pleural effusions and interstitial pulmonary edema. Scattered ground glass opacities that may be edema and superimposed pneumonia. Interval progression of lymphadenopathy throughout the chest and mediastinum, most consistent with progressive lymphoma. -CXR showing moderate to severe CHF with right pleural effusion. -plan as above Qualifiers: Pneumonia type: due to unspecified organism Laterality: bilateral Lung l ocation: unspecified part of lung Qualified Code(s): J18.9 - Pneumonia, unspecified organism (6) Acute metabolic encephalopathy Current Visit: No Status: Acute Resolved. This was transient and likely secondary to hypoxia from acute on chronic respiratory failure. (7) CKD (chronic kidney disease) stage 3, GFR 30-59 ml/min Current Visit: No Status: Chronic History of chronic kidney disease stage III. -Creatinine at his baseline -baseline creatinine 1.4-1.5 -baseline GFR 47-53 -I&O: 1280/2485 -6403, appropriate urine output -continue to monitor serum creatinine -strict I&O -continue renal protective strategy including renal dose medications and avoid nephrotoxic agents (8) Cirrhosis of liver Current Visit: No Status: Chronic History of liver cirrhosis taking Lasix, spironolactone, nadolol. Patient is unsure of varices or portal hypertension. In [place] cannot find endoscopy report. -Continue Lasix and spironolactone. Holding Nadolol due to BP and heart rate. Qualifiers: Hepatic cirrhosis type: unspecified hepatic cirrhosis Ascites presence: without ascites Qualified Code(s): K74.60 - Unspecified cirrhosis of liver (9) Follicular lymphoma Current Visit: No Status: Chronic History of known follicular lymphoma for which was diagnosed in 2012 and his last chemotherapy was in 2017. No radiation treatment. He follows with the oncologist Dr. Rogers. -chest CT showing nterval progression of lymphadenopathy throughout the chest and mediastinum, most consistent with progressive lymphoma. -Patient can follow up with oncologist Dr. Rogers about the CT chest showing progression of lymphadenopathy Qualifiers: Follicular lymphoma grade: unspecified grade Lymphoma site: unspecified region Qualified Code(s): C82.90 - Follicular lymphoma, unspecified, unspecified site (10) Type 2 diabetes mellitus Current Visit: No Status: Chronic History of type II diabetes that is taking insulin. 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 Cross is a 74-year-old male with a past medical history of severe aortic stenosis, HFpEF, s/p Pleurx catheter, cirrhosis, follicular lymphoma diagnosed in 2012, liver cirrhosis, diabetes, CKD who is admitted for acute and chronic respiratory failure secondary to fluid overload from HFpEF exacerbation, noncompliance with diuretics for at least 2 days, possible pneumonia, and dysfunction with drainage of his Pleurx catheter. New Mobitz type II AV block found on EKG on 06/05/2019. Patient seen and examined at the bedside today with no complaints. He reports his dyspnea is almost back to baseline. He denies fever, chills, chest pain, palpitations, wheezing, cough, diarrhea. There were no overnight events. Yesterday he and family decided that they did not want pacemaker. After thorough discussion with patient and family he had decided that he wanted to be DNR CCA DNI. He was alert and oriented times 3 with full capacity. Objective PUL Vital signs: Last Vital Signs Temp 98.5 F 06/06/19 04:05 Pulse 60 06/06/19 06:00 Resp 16 06/06/19 06:00 BP 128/56 06/06/19 06:00 Pulse Ox 91 06/06/19 06:00 General appearance: no acute distress, alert Eyes: nonicteric ENT: oropharynx moist Neck: supple Effort: normal Auscultation: bilateral: rales (bases) Cardiovascular: regular rate and rhythm, murmur noted (3/6 systolic murmur) Gastrointestinal: normoactive bowel sounds, soft, non-tender Integumentary: normal, other (Scars and scabs on shins bilaterally) Extremities: no edema Musculoskeletal: no deformities normal mental status, non-focal exam mood appropriate, affect normal Results - Laboratory Findings CBC and BMP: 06/06/19 03:49 06/06/19 03:49 ABG ABG pH 7.43 pH Units (7.32-7.45) 06/05/19 02:47 ABG pCO2 60 mmHg (35-45) H 06/05/19 02:47 ABG pO2 73 mmHg (85-104) L 06/05/19 02:47 ABG O2 Saturation 94 % (95-98) L 06/05/19 02:47 PT/INR, D-dimer PT 15.2 Seconds (9.4-12.1) H 06/05/19 09:00 Abnormal lab findings: Abnormal lab results WBC 13.1 K/mcL (4.3-11.1) H 06/04/19 22:33 RBC 3.82 M/mcL (4.19-5.50) L 06/06/19 03:49 Hgb 11.3 g/dL (12.9-16.9) L 06/06/19 03:49 Hct 33.4 % (37.5-50.1) L 06/06/19 03:49 MPV 9.2 fL (9.4-12.4) L 06/06/19 03:49 Monocytes # 1.6 K/mcL (0.0-1.3) H 06/04/19 22:33 PT 15.2 Seconds (9.4-12.1) H 06/05/19 09:00 ABG pCO2 60 mmHg (35-45) H 06/05/19 02:47 ABG pO2 73 mmHg (85-104) L 06/05/19 02:47 ABG HCO3 39 mEq/L (21-27) H 06/05/19 02:47 ABG Total CO2 41 mEq/L (20-26) H 06/05/19 02:47 ABG O2 Saturation 94 % (95-98) L 06/05/19 02:47 ABG Base Excess 13 mEq/L (-2 to 3) H 06/05/19 02:47 Sodium 135 mEq/L (136-145) L 06/06/19 03:49 Chloride 91 mEq/L (98-107) L 06/06/19 03:49 Carbon Dioxide 34 mEq/L (23-29) H 06/06/19 03:49 BUN 31 mg/dL (8-23) H 06/06/19 03:49 Creatinine 1.45 mg/dL (0.70-1.30) H 06/06/19 03:49 Est GFR ( Amer) 58 (> 60) L 06/06/19 03:49 Est GFR (Non-Af Amer) 47 (> 60) L 06/06/19 03:49 Glucose 129 mg/dL (70-105) H 06/06/19 03:49 POC Glucose 165 mg/dL (70-99) H 06/05/19 19:54 Calcium 10.5 mg/dL (8.6-10.3) H 06/04/19 22:33 B-Natriuretic Peptide 677 pg/mL (Less than 100) H 06/04/19 22:33 Procalcitonin 0.17 ng/mL (0.00-0.15) H 06/05/19 15:56 Nasal Screen MRSA (PCR) DETECTED (Not Detect) A 06/05/19 03:49 - Microbiology Findings Microbiology Findings: Microbiology, Last 48 Hours 06/05/19 05:01 Blood Culture - Preliminary Peripheral Venipuncture Culture is incubating and being continuously monitored for growth. Final report to follow. 06/05/19 05:00 Blood Culture - Preliminary Peripheral Venipuncture Culture is incubating and being continuously monitored for growth. Final report to follow. - Clinical Findings Intake & Output: Intake & Output 06/05/19 06/05/19 06/06/19 15:59 23:59 07:59 Intake Total 220 / 560 340 / 560 100 / 100 Output Total 950 / 1800 300 / 1800 Balance -730 / -1240 40 / -1240 100 / 100 Weight 91.2 kg Consult Discharge Plan - Plan Referrals: Tonja Cook CNP [Primary Care Provider] - <Ann-Marie Patel - Last Filed: 06/06/19 22:13> Date of Encounter: 06/06/19 Objective PUL Vital signs: Last Vital Signs Temp 98.4 F 06/06/19 19:01 Pulse 61 06/06/19 19:01 Resp 16 06/06/19 22:02 BP 106/56 06/06/19 19:01 Pulse Ox 90 06/06/19 22:02 Results - Laboratory Findings CBC and BMP: 06/06/19 03:49 06/06/19 03:49 ABG ABG pH 7.43 pH Units (7.32-7.45) 06/05/19 02:47 ABG pCO2 60 mmHg (35-45) H 06/05/19 02:47 ABG pO2 73 mmHg (85-104) L 06/05/19 02:47 ABG O2 Saturation 94 % (95-98) L 06/05/19 02:47 PT/INR, D-dimer PT 15.2 Seconds (9.4-12.1) H 06/05/19 09:00 Abnormal lab findings: Abnormal lab results WBC 13.1 K/mcL (4.3-11.1) H 06/04/19 22:33 RBC 3.82 M/mcL (4.19-5.50) L 06/06/19 03:49 Hgb 11.3 g/dL (12.9-16.9) L 06/06/19 03:49 Hct 33.4 % (37.5-50.1) L 06/06/19 03:49 MPV 9.2 fL (9.4-12.4) L 06/06/19 03:49 Monocytes # 1.6 K/mcL (0.0-1.3) H 06/04/19 22:33 PT 15.2 Seconds (9.4-12.1) H 06/05/19 09:00 ABG pCO2 60 mmHg (35-45) H 06/05/19 02:47 ABG pO2 73 mmHg (85-104) L 06/05/19 02:47 ABG HCO3 39 mEq/L (21-27) H 06/05/19 02:47 ABG Total CO2 41 mEq/L (20-26) H 06/05/19 02:47 ABG O2 Saturation 94 % (95-98) L 06/05/19 02:47 ABG Base Excess 13 mEq/L (-2 to 3) H 06/05/19 02:47 Sodium 135 mEq/L (136-145) L 06/06/19 03:49 Chloride 91 mEq/L (98-107) L 06/06/19 03:49 Carbon Dioxide 34 mEq/L (23-29) H 06/06/19 03:49 BUN 31 mg/dL (8-23) H 06/06/19 03:49 Creatinine 1.45 mg/dL (0.70-1.30) H 06/06/19 03:49 Est GFR ( Amer) 58 (> 60) L 06/06/19 03:49 Est GFR (Non-Af Amer) 47 (> 60) L 06/06/19 03:49 Glucose 129 mg/dL (70-105) H 06/06/19 03:49 POC Glucose 144 mg/dL (70-99) H 06/06/19 17:27 Calcium 10.5 mg/dL (8.6-10.3) H 06/04/19 22:33 B-Natriuretic Peptide 677 pg/mL (Less than 100) H 06/04/19 22:33 Procalcitonin 0.17 ng/mL (0.00-0.15) H 06/05/19 15:56 Nasal Screen MRSA (PCR) DETECTED (Not Detect) A 06/05/19 03:49 - Microbiology Findings Microbiology Findings: Microbiology, Last 48 Hours 06/05/19 05:01 Blood Culture - Preliminary Peripheral Venipuncture Culture is incubating and being continuously mon itored for growth. Final report to follow. 06/05/19 05:00 Blood Culture - Preliminary Peripheral Venipuncture Culture is incubating and being continuously monitored for growth. Final report to follow. - Clinical Findings Intake & Output: Intake & Output 06/06/19 06/06/19 06/06/19 07:59 15:59 23:59 Intake Total 100 / 220 120 / 220 Output Total 300 / 700 400 / 700 Balance -200 / -480 -280 / -480 - Attending Attestation - Attending Attestation I saw and evaluated this patient and my medical decision-making was reviewed with the Resident Physician. I agree with the documented findings, disposition and treatment plan as described except to the extent set forth below. We independently had [id number] contact with the patient Patient seen and examined at bedside Labs, radiology, chart personally reviewed. Management was reviewed during multidisciplinary critical care rounds. 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 Pulm: Patient V/Q mismatch is complicated most likely hydrostatic pulmonary edema and bilateral pleural effusion consistent with the his diastolic heart failure and aortic stenosis patient is tolerating BiPAP for now patient does not want any endotracheal intubation mechanical ventilation and ICU team spoke with him and the family. 06/06 patient V/Q mismatch most likely due to this congestive heart failure causing this bilateral pleural effusion left-sided is only mild to moderate pleural effusion is has a Pleurx catheter is secured to the family that they had not already how to drain it is no need to drain it now as patient V/Q mismatch is stable as can the right side the scan showed moderate size pleural effusion I did an ultrasound that was no sizable pocket and we can safely tap. Cards: Patient had Mobitz type II block which which got better with first-degree AV block and some episodic sinus bradycardia patient declined any pacemaker in the event of cardiac arrest patient does not want any resuscitation. To keep him on cardiac telemetry for now 06/06 patient had some sinus bradycardia and no evidence of Mobitz type II block patient declined pacemaker patient can be transferred to medical telemetry. FEN-GI: Advance diet as tolerated Renal: Labs and output reviewed to do gentle diuresis. ID: To de-escalate the broad-spectrum antibiotics Heme/Onc: Labs were reviewed Endo: Glucose Monitored Integ/MSK: Skin Care per routine ICU Nursing Protocol to prevent ulcers. Lines: All lines examined without evidence of infection : Dispo: Patient and family leaning towards comfort care consulted palliative care CODE: [id number]
[2019-06-06] MEDS: Furosemide 40 MG/4 ML VIAL IVP SCH ×2 (07:55→17:49)
[2019-06-06] MEDS: Piperacillin/Tazobactam 3.375 GM in 0.9 % Sodium Chloride Mini Bag 100 ML IVPB SCH (07:55)
[2019-06-06] MEDS: Budesonide/Formoterol 160/4.5 1 PUFF INH IH SCH ×2 (07:56→21:59)
[2019-06-06] MEDS: Ascorbic Acid 500 MG TABLET PO SCH (07:56)
[2019-06-06] MEDS: Aspirin 81 MG TAB.CHEW PO SCH (07:56)
[2019-06-06] MEDS: Cholecalciferol (D-3) 1,000 UNIT (25MCG) TABLET PO SCH (07:56)
[2019-06-06] MEDS: Gabapentin 300 MG CAPSULE PO SCH ×3 (07:57→22:10)
[2019-06-06] MEDS: Multivit/Ca/Min/Fe/FA 1 TAB TABLET PO SCH (07:57)
[2019-06-06] MEDS: Insulin LISPRO 300 UNITS/3 ML VIAL SQ SCH ×2 (08:21→17:49)
--- NOTE | 2019-06-06 12:28 | Electrocardiograph Report ---
[address] [address] Test Date: 2019-06-05 Pat Name: Chalo Cross Department: [id number] Room: 01 Gender: M Group Teacher: : 1945 Requested By: Cliff Elabor Order Number: [id number] Reading MD: Demarcus Christina Measurements Intervals [place] Rate: 23 P: GA: 0 QRS: -15 QRSD: 101 T: 80 QT: 526 QTc: 301 Interpretive Statements SINUS BRADYCARDIA WITH 2:1 AV BLOCK LEFT VENTRICULAR HYPERTROPHY AND ST-T CHANGE Electronically Signed On 06-06-2019 12:26:30 EDT by Demarcus Christina
[2019-06-06] MEDS ORDERED: Ondansetron ODT 4 MG TAB.RAPDIS PO PRN ×2 (12:46→14:59)
[2019-06-06] MEDS ORDERED: *HR* LORazepam 0.5 MG TABLET PO PRN ×2 (12:46→14:59)
[2019-06-06] MEDS ORDERED: D5% in Water 1,000 ML IVC PRN ×2 (12:46→14:59)
[2019-06-06] MEDS ORDERED: Dextrose Gel 15 GM/37.5 ML TUBE PO PRN ×4 (12:46→14:59)
[2019-06-06] MEDS ORDERED: *HR* Dextrose 50 % in Water (Syg) 50 ML SYRINGE IVP PRN ×2 (12:46→14:59)
--- NOTE | 2019-06-06 13:35 | Internal Med Progress Note ---
Hospitalist Progress Note - Encounter Date of Encounter: 06/06/19 Time of Encounter: 13:30 - Subjective Interval History: This is 74-year-old male with multiple medical problems including severe aortic stenosis, diastolic CHF, follicular lymphoma with last chemotherapy several years ago, chronic recurrent pleural effusions with a Pleurx catheter (placed March 2019), COPD, type 2 diabetes mellitus ,chronic kidney disease history, liver cirrhosis with underlying varices on Nadolol. Patient was admitted on June 05 in the morning for acute hypoxemic respiratory failure. He apparently had a failed attempt at draining fluid from his Pleurx catheter recently, on arrival he was placed on BiPAP. He was hemodynamically stable. Chest x-ray showed pulmonary vascular congestion, concern for aspiration. Patient was diuresed with IV Lasix and admitted to the intensive care unit. While in detail. He did have bradycardia with a heart rate in the 20s, second-degree AV block. He was given atropine with good response and we continue to hold is not well. His heart rate is now in the 50s and his blood pressure is stable. Patient was seen in consult by cardiology I was recommending a pacemaker, possible TAVR in the near future should patient decide to do this. Presently patient is adamantly stating he does not want a pacemaker or any surgical intervention. He understands that he could without these. Family is present at bedside and we are continuing to have discussions with them. Patient is on empiric antibiotics for possible pneumonia, Zosyn day #1. He continues on IV Lasix for diuresis. Patient had altered mental status on arrival, likely due to sepsis. His initial glucose was low at 67 but is now improved. Ammonia level is normal at 33. Initial ABG showed mild CO2 retention with a pH of 7.43, PCO2 60, PO2 of 73. BUN 31 creatinine 1.44. Blood cell count 13.1, hemoglobin 12.4, platelets 213,000. 06/06: Patient continued to improve. CT of his chest showed moderate to severe bilateral pleural effusions with pulmonary edema, as well as scattered groundglass opacities. Also evidence of probable progression of his lymphoma. Patient had Zosyn stopped on June 05 that is changed to oral doxycycline to complete a 10 day course. He continues on Lasix for diuresis. He does have a chronic Pleurx catheter on the left side which we will attempt to access for further drainage of his pleural effusion, and we are currently in discussion with the patient whether or not he wants to pursue a thoracentesis on his right chest pleural effusion. Patient has refused pacemaker for his Mobitz type II heart block, he also is not interested in any surgical intervention for his aortic stenosis which is classified as severe. His bradycardia did improve after stopping the Nadolol which he was taking for esophageal varices. Patient has been doing reasonably well, he is stable to transfer out of the ICU today. Pulmonary we will continue to follow. Today patient is denying any chest pain or shortness of breath. No nausea or vomiting. No fevers or chills. No abdominal pain. Other than that mentioned above a 10 point review of systems is negative. - Exam Vitals: Temp Pulse Resp BP Pulse Ox 98.9 F 61 16 124/69 93 06/06/19 11:30 06/06/19 12:00 06/06/19 12:00 06/06/19 12:00 06/06/19 12:00 Exam: . General: Awake alert oriented 3, chronically ill-appearing, conversant, pleasant Skin is pale, warm and dry OP dry Neck supple lungs show coarse breath sounds bilaterally, no wheezes. He does have a port which is located beneath the skin in the left anterior chest wall. Markedly diminished breath sounds bilateral lung barnett. Heart regular rate and rhythm with systolic ejection murmur best heard at left second intercostal space Abdomen is soft, mildly distended, nontender, normoactive bowel sounds Stromally show trace edema, cap refill less than 2.5 seconds, distal pulses intact Neurlogical is grossly nonfocal - Summary of Assessment and Plan Summary of Assessment and Plan: Acute on chronic combined hypoxic and hypercarbic respiratory failure: -Multifactorial -Patient has pleural effusions, possible pneumonia, also hypercarbia which can all contribute to altered mental status. -Continue treatment for pneumonia, currently day #1 of Zosyn, add vancomycin as his MRSA screen is positive -Check urinalysis -Follow up on culture data Altered mental status: -Ruled out hypercarbia with ABG and his glucose was 67mg/dl at the time of transfer to ICU. In any case, we administered a dose of D50% to ensure his glycemic values remain higher into the 100s to avoid potential complications given his poor intake. He was not hypoxic either.NH3 nml. No focal findings apparent to suggest CVA. -resolved 2nd Degree Heart Block, Mobitz Type 2 -Has improved since stopping the nadolol, also did receive 1 dose of atropine this morning -We ongoing discussions regarding pacemaker. I discussed the case with cardiology. Avoid any AV theo agents. 06/06: Improved after stopping nadolol patient not interested in any procedures Acute CHF -Multifactorial likely due to severe aortic stenosis, will await echocardiogram to comment on whether or not there is a diastolic dysfunction component -Continue to diuresis as renal function allows, Zosyn monitor electrolytes and renal function -Cannot use beta alvaro due to bradycardia 06/06: Improving, diuresis as renal function allows, monitor Severe Aortic Stenosis -Cardiology is following, may be a candidate for TAVR procedure although is patient will be high risk for complications given his comorbidities 06/06: Patient not interested in surgical intervention Diabetes Mellitus Type 2 -basal/bolus insulin, monitor Follicular lymphoma: - s/p chemotherapy and being followed by oncology. -has Port in right chest -CT of his chest suggests progression of disease Type 2 diabetes mellitus: - He will remain on basal insulin coupled with insulin sliding scale Chronic kidney disease: Stage 3 -He received contrast with his CT. Closely monitor his CrCl and avoid further nephrotoxic insults. Cirhhosis with hx Varices -monitor, supportive care -do not suspect acute decomp DVT prophylaxis -SubQ heparin I discussed the case with the patient and multiple family members at bedside. Patient currently not wanting any procedures done, we are further discussing and will re-address CODE STATUS - Time Spent with Patient Total time spent is greater than 50% in coordination of care (as documented) at patient's floor/unit and/or counseling patient: Greater than 35 minutes Internal Medicine: Result - Labs CBC & Chem 7: 06/06/19 03:49 06/06/19 03:49 Labs: Short CBC 06/06/19 Range/Units 03:49 WBC 10.9 (4.3-11.1) K/mcL Hgb 11.3 L (12.9-16.9) g/dL Hct 33.4 L (37.5-50.1) % Plt Count 192 (140-400) K/mcL Neutrophils # 6.5 (1.6-8.9) K/mcL BMP 06/06/19 03:49 Sodium 135 L Potassium 3.8 Chloride 91 L Carbon Dioxide 34 H BUN 31 H Creatinine 1.45 H Glucose 129 H Calcium 10.2 Cardiac Enzymes 06/05/19 Range/Units 14:22 Troponin I 0.03 (< 0.04) ng/mL - ABG Interpretation ABG results: ABG ABG pH 7.43 pH Units (7.32-7.45) 06/05/19 02:47 ABG pCO2 60 mmHg (35-45) H 06/05/19 02:47 ABG pO2 73 mmHg (85-104) L 06/05/19 02:47 ABG O2 Saturation 94 % (95-98) L 06/05/19 02:47 PT/INR, D-dimer PT 15.2 Seconds (9.4-12.1) H 06/05/19 09:00 - Impressions Impressions Chest CT 06/05/19 02:42 IMPRESSION: 1. The constellation of findings within the lungs is most consistent with moderate to severe CHF, including bilateral pleural effusions and interstitial pulmonary edema. A left PleurX catheter is in place. 2. Partial consolidation of the bilateral lower lobes likely reflects passive atelectasis, though aspiration or pneumonia are also less likely diagnostic considerations. 3. Additional scattered ground-glass and nodular opacities throughout both lungs likely reflect a combination of asymmetric edema and superimposed pneumonia. 4. Interval progression of lymphadenopathy throughout the chest and mediastinum, most consistent with progressive lymphoma. 5. Stable splenomegaly and bulky lymphadenopathy within the upper abdomen, consistent with patient's known history of lymphoma. 6. Stable upper abdominal ascites. 7. Cholelithiasis. RECOMMENDATIONS: Suggest appropriate clinical treatment, and recommend short-term chest CT follow-up in 6-8 weeks to ensure resolution of the multifocal opacities throughout both lungs. D/ / 06/05/2019 08:01:46 Fredrick Abdullahi MD / [facility] Interpreting Provider: Fredrick Abdullahi MD Echocardiogram 06/05/19 14:30 Impressions: Technically challenging echo windows. LVEF 65%. Left ventricular hypertrophy. Indeterminate diastolic function. Definity echo contrast was used. Right ventricular structure is not well visualized. Systolic function is normal by TAPSE and TD. Densely calcified aortic valve leaflets with severe restriction in leaflet mobility. Suboptimal Color Flow/Doppler signal to quantify AR/. Mild-moderate mitral stenosis, MG 4 mmHg at 56 bpm, PHT 174ms, MVA 1.3cm2. No pulmonary hypertension based on TR signal obtained. Left Ventricular Wall Motion: Rest Echo Findings All wall segments showed normal motion. Findings: Study Quality * Technically challenging echo windows. ECG Findings * Sinus bradycardia. Left Ventricle * LVEF 65%. * Left ventricular hypertrophy. * Indeterminate diastolic function. * Definity echo contrast was used. Right Ventricle * Right ventricular structure is not well visualized. Systolic function is normal by TAPSE and TD. Left Atrium * Mildly dilated left atrium by measurement. Right Atrium * Normal right atrial size. Aortic Valve * Aortic valve leaflet morphology well visualized. * Densely calcified aortic valve leaflets with severe restriction in leaflet mobility. * Suboptimal Color Flow and Doppler signal. Mitral Valve * Mitral valve not well visualized. * Moderate mitral annular calcification * Mild-moderate mitral stenosis, MG 4 mmHg at 56 bpm, PHT 174ms, MVA 1.3cm2. * No mitral regurgitation. Tricuspid Valve * Normal tricuspid valve structure. * No tricuspid regurgitation. Pulmonic Valve * Pulmonic valve is not well visualized. * No pulmonic stenosis. * No pulmonic regurgitation. Pulmonary Artery * Pulmonary artery not well visualized. Aorta * Suboptimally visualized. Pericardium * There is no pericardial effusion present. Interatrial Septum * Interatrial septum not well evaluated. IVC * The IVC is not well evaluated. Consult Discharge Plan - Plan Referrals: Tonja Coko, EDUARDO [Primary Care Provider] -
--- NOTE | 2019-06-06 14:50 | Electrocardiograph Report ---
[address] [address] Test Date: 2019-06-05 Pat Name: Chalo Cross Department: 109 Room: 01 Gender: M [employer] Department Chair: : 1945 Requested By: Letitia Paul Order Number: [id number] Reading MD: Demarcus Christina Measurements Intervals [place] Rate: 53 P: 26 IA: 266 QRS: -13 QRSD: 98 T: 124 QT: 481 QTc: 465 Interpretive Statements SINUS BRADYCARDIA WITH FIRST DEGREE AV BLOCK LEFT VENTRICULAR HYPERTROPHY AND ST-T CHANGE INFEROLATERAL ST CHANGES Electronically Signed On 06-06-2019 14:48:27 EDT by Demarcus Christina
[2019-06-06] MEDS ORDERED: Gabapentin 300 MG CAPSULE PO SCH (15:00)
--- NOTE | 2019-06-06 15:44 | Palliative - Consult Note ---
Date of Encounter: 06/06/19 Time of Encounter: 15:30 - Assessment and Plan (1) Advance care planning Current Visit: Yes Status: Acute Assessment and plan: 45 min discussion with patient's , Margaret, daughter Osiris, and son Vince. Discussed and updated on current clinical status and goals of care. As previously noted, patient has refused all aggressive interventions and does not want pacemaker. He has expressed to his next of kin that he just wants to be home and be comfortable. He has expressed to family recently that he is ready to pass away. We discussed hospice care and philosophy at length. Daughter had concerns regarding continuing passport care with hospice. I spoke with pt case therapist Asha Mosley, who stated he would continue these services and the 20 hours a week provided by his daughter. They desire to utilize [facility] services for his care. Referral information called to [facility]. They have all needed DME in place already. Code status transitioned to DNRCC. D/W SANDI Loaiza. Discharge information needs faxed to [facility] as well as [facility]. Fax # given. Will ask [facility] community liaison to meet with family at 1300 tomorrow, and hopefully d/c home shortly thereafter. (2) Palliative care encounter Current Visit: Yes Status: Acute (3) Congestive heart failure Current Visit: No Status: Acute Qualifiers: Heart failure type: diastolic Heart failure chronicity: acute on chronic Qualified Code(s): I50.33 - Acute on chronic diastolic (congestive) heart failure (4) Severe aortic stenosis Current Visit: No Status: Chronic (5) Bilateral pleural effusion Current Visit: No Status: Acute Assessment and plan: Pleurx cath remains in place - will be evaluated today (6) Mobitz (type) II atrioventricular block Current Visit: Yes Status: Acute (7) CKD (chronic kidney disease) stage 3, GFR 30-59 ml/min Current Visit: No Status: Chronic (8) Cirrhosis of liver Current Visit: No Status: Chronic Qualifiers: Hepatic cirrhosis type: unspecified hepatic cirrhosis Ascites presence: without ascites Qualified Code(s): K74.60 - Unspecified cirrhosis of liver Palliative-CN HPI - Data of Consult Requesting Physician: Quyen Manning MD Primary Care Provider: Tonja Cook - Consult Narrative History of present illness: Mr. Cross is a 74 year old male who present to hospital with c/o shortness of breath that began suddenly the day before admission. He has past medical history of severe aortic stenosis, HFpEF, s/p Pleurx catheter, cirrhosis, follicular lymphoma s/p chemo, liver cirrhosis, diabetes, and CKD. Pt had decreased mental status and heart rate was noted in 20's and 30's. He was admitted to ICU and treated with atropine. He was in second degree heart block as well. Cardiology was consulted and ultimately offered pacemaker which he refused. Imaging also noted pneumonia and him having acute on chronic hypoxic respiratory failure he was given Zosyn and Lasix. Regarding his severe aortic stenosis, he had pre viously been evaluated for TAVR in [place] and was found not to be candidate r/t multiple cormorbid conditions. Patient has had a pleurx cath placed in [place] [address] Yan. It has not drained well the past 2 weeks Has had home health support as well as passport services. He is on 3L home oxygen. Resides with and has 3 children. CC: Quyen Manning MD - Time Spent with Patient Time: Total time spent is greater than 50% in coordination of care (as documented) at patient's floor/unit and/or counseling patient: Time with patient: 75 minutes Past Med Surg Social Fam HX - Past Medical History Medical history: arthritis, cancer, cirrhosis, CHF, COPD, diabetes, GERD, hyperlipidemia, hypertension, kidney stones, liver disease, renal disease, dianne vular heart disease (Severe aortic stenosis), other Additional medical history: Follicula lymphoma. 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 Ascites. Hyperuricemia. Hyponatremia. Hyperkalemia. Aortic stenosis. Glueosuria. cardiomegaly. heart murmur. ascites Psychiatric history: no psych history - Past Surgical History Surgical History: orthopedic, other (Bone graft right hip), other (Eye surgery, retinal surgery, A port) Additional surgical history: eye surg, right wrist surgery, A-PORT, cancer loki ting - Social History Smoking Status: Former smoker Smokeless Tobacco Status: No Alcohol use: none Drug use: none - Family History Daughter Hx Family Cancer: Yes (Breast) Mother Adopted: No Family Member Ethnicity: Non- Living Status: Still Living Hx Family Cardiac Disorders: Yes (CAD with stents) Hx Family Respiratory Disorders: No Hx Family Cancer: No Hx Family GI Disorders: No Hx Family Endocrine Disorder: Yes Hx Family Neuromuscular Disorders: No Hx Family Neurologic Disorders: No Hx Family HEENT Disorders: No Hx Family Autoimmune Disorders: No Father Adopted: No Family Member Ethnicity: Non- Living Status: Hx Family Cardiac Disorders: No Hx Family Respiratory Disorders: No Hx Family Cancer: Yes (Lung) Hx Family GI Disorders: No Hx Family Endocrine Disorder: No Hx Family Neuromuscular Disorders: No Hx Family Neurologic Disorders: No Hx Family HEENT Disorders: No Hx Family Autoimmune Disorders: No Medications and Allergies Aspirin 81 mg PO DAILY 11/06/18 [History] Docusate [Colace] 100 mg PO DAILY PRN 11/06/18 [History] Insulin Regular, Human [Novolin R] 0 - 18 unit SQ TIDWM 11/06/18 [History] Multivitamin [One Daily] 1 tab PO DAILY 11/06/18 [History] Pantoprazole Sodium [Protonix] 40 mg PO DAILY 11/06/18 [History] Spironolactone [Aldactone] 100 mg PO DAILY 11/06/18 [History] DiphenhydraMINE [Benadryl] 25 mg PO Q6HR PRN 11/26/18 [History] Gabapentin [Neurontin] 300 mg PO TID 11/26/18 [History] Tamsulosin HCl [Flomax] 0.4 mg PO DAILY 11/26/18 [History] Cholecalciferol (Vitamin D3) [Dialyvite Vitamin D] 5,000 units PO DAILY 02/27/19 [History] Guaifenesin [Mucinex] 600 mg PO BID PRN 02/27/19 [History] Nadolol 20 mg PO DAILY 02/27/19 [History] Lovell-3S/Dha/Epa/Fish Oil [Fish Oil 1,200 mg Softgel] 1,200 mg PO BID 02/27/19 [ History] LORazepam [Ativan] 0.5 mg PO BID PRN 03/18/19 [History] Furosemide [Lasix] 40 mg PO BIDDIURETIC #60 tablet 03/22/19 [Rx] Ascorbic Acid [Vitamin C] 1,000 mg PO DAILY 03/25/19 [History] Cinnamon Bark [Cinnamon] 1,000 mg PO DAILY 03/25/19 [History] Fluticasone/Vilanterol [Breo Ellipta 200-25 Mcg INH] 1 puff IH DAILY 03/25/19 [History] Insulin Glargine,Hum.rec.anlog [Yaoaglar José Antoniopen U-100] 20 unit SQ HS 03/25/19 [History] Oxycodone HCl 15 mg PO BID PRN 06/04/19 [History] Allergy/AdvReac Type Severity Reaction Status Date / Time chlorhexidine Allergy Blister Verified 06/04/19 22:11 band-aids AdvReac Blister Uncoded 03/25/19 14:48 ROS unobtainable: due to mental status (Nonverbal - would not answer questions) Palliative Care-Exam - Constitutional Vitals: Temp Pulse Resp BP Pulse Ox 98.9 F 61 16 124/69 93 06/06/19 11:30 06/06/19 12:00 06/06/19 12:00 06/06/19 12:00 06/06/19 12:00 General appearance: Present: no acute distress, obese - Head Head Exam: Present: normal inspection, normocephalic - Eye Additional comments: Blind - Respiratory Respiratory exam: Present: decreased breath sounds, CTAB - Cardiovascular Cardiovascular exam: Present: bradycardia, irregular rhythm, systolic murmur - GI/Abdominal Exam GI/Abdominal exam: Present: distended, normal bowel sounds, soft - Extremities Exam Extremities exam: Present: normal capillary refill, normal inspection - Neurological Exam Additional comments: Awakens with stimulation, answers few yes/no questions, but drifts back to sleep - Skin Skin exam: Present: dry, pallor, warm Internal Medicine - CN: Reslt - Labs CBC & Chem 7: 06/06/19 03:49 06/06/19 03:49 Labs: Short CBC 06/06/19 Range/Units 03:49 WBC 10.9 (4.3-11.1) K/mcL Hgb 11.3 L (12.9-16.9) g/dL Hct 33.4 L (37.5-50.1) % Plt Count 192 (140-400) K/mcL Neutrophils # 6.5 (1.6-8.9) K/mcL BMP 06/06/19 03:49 Sodium 135 L Potassium 3.8 Chloride 91 L Carbon Dioxide 34 H BUN 31 H Creatinine 1.45 H Glucose 129 H Calcium 10.2 - ABG Interpretation ABG results: ABG ABG pH 7.43 pH Units (7.32-7.45) 06/05/19 02:47 ABG pCO2 60 mmHg (35-45) H 06/05/19 02:47 ABG pO2 73 mmHg (85-104) L 06/05/19 02:47 ABG O2 Saturation 94 % (95-98) L 06/05/19 02:47 PT/INR, D-dimer PT 15.2 Seconds (9.4-12.1) H 06/05/19 09:00 - Impressions Impressions Echocardiogram 06/05/19 14:30 Impressions: Technically challenging echo windows. LVEF 65%. Left ventricular hypertrophy. Indeterminate diastolic function. Definity echo contrast was used. Right ventricular structure is not well visualized. Systolic function is normal by TAPSE and TD. Densely calcified aortic valve leaflets with severe restriction in leaflet mobility. Suboptimal Color Flow/Doppler signal to quantify AR/. Mild-moderate mitral stenosis, MG 4 mmHg at 56 bpm, PHT 174ms, MVA 1.3cm2. No pulmonary hypertension based on TR signal obtained. Left Ventricular Wall Motion: Rest Echo Findings All wall segments showed normal motion. Findings: Study Quality * Technically challenging echo windows. ECG Findings * Sinus bradycardia. Left Ventricle * LVEF 65%. * Left ventricular hypertrophy. * Indeterminate diastolic function. * Definity echo contrast was used. Right Ventricle * Right ventricular structure is not well visualized. Systolic function is normal by TAPSE and TD. Left Atrium * Mildly dilated left atrium by measurement. Right Atrium * Normal right atrial size. Aortic Valve * Aortic valve leaflet morphology well visualized. * Densely calcified aortic valve leaflets with severe restriction in leaflet mobility. * Suboptimal Color Flow and Doppler signal. Mitral Valve * Mitral valve not well visualized. * Moderate mitral annular calcification * Mild-moderate mitral stenosis, MG 4 mmHg at 56 bpm, PHT 174ms, MVA 1.3cm2. * No mitral regurgitation. Tricuspid Valve * Normal tricuspid valve structure. * No tricuspid regurgitation. Pulmonic Valve * Pulmonic valve is not well visualized. * No pulmonic stenosis. * No pulmonic regurgitation. Pulmonary Artery * Pulmonary artery not well visualized. Aorta * Suboptimally visualized. Pericardium * There is no pericardial effusion present. Interatrial Septum * Interatrial septum not well evaluated. IVC * The IVC is not well evaluated. Consult Discharge Plan - Plan Referrals: Tonja Cook CNP [Primary Care Provider] - Palliative Quality Palliative Quality: Screen for Code Status: Yes, Screen for Goals of Care: Yes, Screen for Pain: Yes, If Pain Regimen Started, Initiate Bowel Regimen: NA, Screen for Nausea/Vomitting: Yes Code Status: 06/05/19 02:02 Resuscitation Status: Active [RES] Routine Comment: Resuscitation Status: Full Code 06/05/19 13:44 Resuscitation Status: Active [RES] Routine Comment: Resuscitation Status: [id number] Palliative Scale - Palliative Performance Scale How ambulatory is this patient?: Totally bed bound What is patient's level of activity and evidence of disease?: Unable to do any activity, Extensive disease How much self-care assistance does patient require?: Mainly assistance How much oral intake does the patient have?: Minimal to sips What is this patient's level of consciousness?: Full or drowsy with or without confusion Palliative Performance Score: 30 %
[2019-06-06] MEDS ORDERED: Insulin LISPRO 300 UNITS/3 ML VIAL SQ SCH ×3 (16:30→21:00)
[2019-06-06] MEDS ORDERED: Furosemide 40 MG/4 ML VIAL IVP SCH (17:00)
[2019-06-06] MEDS ORDERED: *HR* Heparin 5,000 UNIT/ML VIAL SQ SCH (18:00)
[2019-06-06] MEDS ORDERED: Doxycycline 100 MG CAPSULE PO SCH ×2 (21:00)
[2019-06-06] MEDS ORDERED: Insulin DETEMIR 100 UNIT/ML X5UNITS SQ SCH ×3 (21:00)
[2019-06-06] MEDS: Doxycycline 100 MG CAPSULE PO SCH (21:57)
[2019-06-07 05:01] LABS: Hematocrit 32.7 % (37.5-50.1); Hemoglobin 10.8 g/dL (12.9-16.9); Mean Corpuscular Hemoglobin 28.6 pg (28.0-33.3); Mean Corpuscular Volume 86.7 fL (83.0-100.0); Platelet Count 191 K/mcL (140-400); Red Blood Count 3.77 M/mcL (4.19-5.50); Red Cell Distribution Width 13.7 % (11.5-14.5); White Blood Count 9.7 K/mcL (4.3-11.1)
[2019-06-07 05:15] LABS: Calcium 10.4 mg/dL (8.6-10.3)
[2019-06-07] MEDS: *HR* Heparin 5,000 UNIT/ML VIAL SQ SCH (05:50)
[2019-06-07] MEDS: Budesonide/Formoterol 160/4.5 1 PUFF INH IH SCH (07:39)
[2019-06-07] MEDS: Gabapentin 300 MG CAPSULE PO SCH ×2 (08:41→16:02)
[2019-06-07] MEDS: Doxycycline 100 MG CAPSULE PO SCH (08:41)
[2019-06-07] MEDS: Insulin LISPRO 300 UNITS/3 ML VIAL SQ SCH ×2 (08:41→12:20)
[2019-06-07] MEDS: Furosemide 40 MG/4 ML VIAL IVP SCH (08:42)
[2019-06-07] MEDS ORDERED: Ascorbic Acid 500 MG TABLET PO SCH ×2 (09:00)
[2019-06-07] MEDS ORDERED: Aspirin 81 MG TAB.CHEW PO SCH ×2 (09:00)
[2019-06-07] MEDS ORDERED: Multivit/Ca/Min/Fe/FA 1 TAB TABLET PO SCH ×2 (09:00)
[2019-06-07] MEDS ORDERED: Cholecalciferol (D-3) 1,000 UNIT (25MCG) TABLET PO SCH ×2 (09:00)
[2019-06-07] MEDS ORDERED: Budesonide/Formoterol 160/4.5 1 PUFF INH IH SCH (10:00)
--- NOTE | 2019-06-07 12:50 | Palliative Progress Note ---
Date of Encounter: 06/07/19 Time of Encounter: 12:49 - Assessment and plan (1) Advance care planning Current Visit: Yes Status: Acute Assessment and plan: Goals of care discussion yesterday with pt/family. See Palliative Note 06/06/19 for additional details. Per family wishes, plan to transfer home today with hospice care. [facility] meeting with family at 1300 today to coordinate discharge plans. DNRCC paperwork completed by Palliative Care, placed in file and copies given to family. (2) Mobitz (type) II atrioventricular block Current Visit: Yes Status: Acute (3) Bilateral pleural effusion Current Visit: No Status: Acute Assessment and plan: Left Pleurx cath remains in place. Per family, drainage has been slowing down. Discussed with hospice, plan to leave drain present for now and will continue to be evaluated. (4) Congestive heart failure Current Visit: No Status: Acute Qualifiers: Heart failure type: diastolic Heart failure chronicity: acute on chronic Qualified Code(s): I50.33 - Acute on chronic diastolic (congestive) heart failure (5) CKD (chronic kidney disease) stage 3, GFR 30-59 ml/min Current Visit: No Status: Chronic (6) Cirrhosis of liver Current Visit: No Status: Chronic Qualifiers: Hepatic cirrhosis type: unspecified hepatic cirrhosis Ascites presence: without ascites Qualified Code(s): K74.60 - Unspecified cirrhosis of liver (7) Cancer related pain Current Visit: Yes Status: Acute Assessment and plan: Pt's reports he takes 15mg oxycodone BID PRN at home per Oncologist. She reports he has taken this for many years. Pt reports he usually takes one at night before bed. He denies pain today. reports they have enough oxycodone at home and do not need an additional script prior to discharge. - Time Spent With Patient Total time spent is greater than 50% in coordination of care (as documented) at patient's floor/unit and/or counseling patient: 25 minutes - Subjective Interval history: Pt is sitting up in bed, NAD, appears comfortable, on oxygen via NC. Family at bedside during visit. Pt voices he is ready to go home as soon as possible. Pt with cheerful affect today, reports he is excited to return home. He denies pain, shortness of breath, constipation or any additional symptoms/needs at this time. DNRCC paperwork completed by Palliative Care, placed in file and copies given to family. Pt to transfer home with hospice today. Family to meet with [facility] liaison Eri today. - Constitutional Vitals: Abnormal lab results WBC 13.1 K/mcL (4.3-11.1) H 06/04/19 22:33 RBC 3.77 M/mcL (4.19-5.50) L 06/07/19 04:44 Hgb 10.8 g/dL (12.9-16.9) L 06/07/19 04:44 Hct 32.7 % (37.5-50.1) L 06/07/19 04:44 MPV 9.0 fL (9.4-12.4) L 06/07/19 04:44 Monocytes # 1.6 K/mcL (0.0-1.3) H 06/04/19 22:33 PT 15.2 Seconds (9.4-12.1) H 06/05/19 09:00 ABG pCO2 60 mmHg (35-45) H 06/05/19 02:47 ABG pO2 73 mmHg (85-104) L 06/05/19 02:47 ABG HCO3 39 mEq/L (21-27) H 06/05/19 02:47 ABG Total CO2 41 mEq/L (20-26) H 06/05/19 02:47 ABG O2 Saturation 94 % (95-98) L 06/05/19 02:47 ABG Base Excess 13 mEq/L (-2 to 3) H 06/05/19 02:47 Sodium 134 mEq/L (136-145) L 06/07/19 04:44 Chloride 92 mEq/L (98-107) L 06/07/19 04:44 Carbon Dioxide 38 mEq/L (23-29) H 06/07/19 04:44 BUN 31 mg/dL (8-23) H 06/07/19 04:44 Creatinine 1.78 mg/dL (0.70-1.30) H 06/07/19 04:44 Est GFR ( Amer) 45 (> 60) L 06/07/19 04:44 Est GFR (Non-Af Amer) 37 (> 60) L 06/07/19 04:44 Glucose 175 mg/dL (70-105) H 06/07/19 04:44 POC Glucose 179 mg/dL (70-99) H 06/06/19 20:12 Calcium 10.4 mg/dL (8.6-10.3) H 06/07/19 04:44 B-Natriuretic Peptide 677 pg/mL (Less than 100) H 06/04/19 22:33 Procalcitonin 0.17 ng/mL (0.00-0.15) H 06/05/19 15:56 Nasal Screen MRSA (PCR) DETECTED (Not Detect) A 06/05/19 03:49 Exam: CONSTITUTIONAL/GENERAL: Awake, interactive, NAD, lying in bed. Ear/Nose/Mouth/Throat (EMNT): Patent, atraumatic. CARDIOVASCULAR: Pulse regular; No edema. No cyanosis/ischemia. RESPIRATORY: Unlabored. Symmetric, normal effort. Oxygen via NC- 4 liters. Left pleurx catheter in place-dressing intact. GASTROINTESTINAL: Soft, non-distended. Active bowel sounds present. GENITOURINARY: Deferred. MUSCULOSKELETAL: No deformities; No joint swelling or erythema. NEUROLOGIC: No gross motor or sensory deficits appreciated. PSYCHIATRY: Alert, attentive. Cheerful affect. Behavior appropriate to situation. Palliative Quality Palliative Quality: Screen for Code Status: Yes, Screen for Goals of Care: Yes, Screen for Pain: Yes, If Pain Regimen Started, Initiate Bowel Regimen: Yes, Screen for Nausea/Vomitting: Yes Code Status: 06/05/19 02:02 Resuscitation Status: Active [RES] Routine Comment: Resuscitation Status: Full Code 06/05/19 13:44 Resuscitation Status: Active [RES] Routine Comment: Resuscitation Status: [id number] 06/06/19 15:58 DNR [Resuscitation Status: Active] [RES] Routine Comment: Resuscitation Status: DNR-Comfort Care - Labs CBC & Chem 7: 06/07/19 04:44 06/07/19 04:44 Labs: Laboratory Results - last 24 hr 06/06/19 06/06/19 06/06/19 07:03 11:41 15:19 WBC RBC Hgb Hct MCV MCH MCHC RDW Plt Count MPV Sodium Potassium Chloride Carbon Dioxide BUN Creatinine Est GFR ( Amer) Est GFR (Non-Af Amer) BUN/Creatinine Ratio Glucose POC Glucose 146 H 130 H 160 H Calculated Osmolality Calcium 06/06/19 06/06/19 06/07/19 17:27 20:12 04:44 WBC 9.7 RBC 3.77 L Hgb 10.8 L Hct 32.7 L MCV 86.7 MCH 28.6 MCHC 33.0 RDW 13.7 Plt Count 191 MPV 9.0 L Sodium Potassium Chloride Carbon Dioxide BUN Creatinine Est GFR ( Amer) Est GFR (Non-Af Amer) BUN/Creatinine Ratio Glucose POC Glucose 144 H 179 H Calculated Osmolality Calcium 06/07/19 04:44 WBC RBC Hgb Hct MCV MCH MCHC RDW Plt Count MPV Sodium 134 L Potassium 4.0 Chloride 92 L Carbon Dioxide 38 H BUN 31 H Creatinine 1.78 H Est GFR ( Amer) 45 L Est GFR (Non-Af Amer) 37 L BUN/Creatinine Ratio 17 Glucose 175 H POC Glucose Calculated Osmolality 289 Calcium 10.4 H - ABG Interpretation ABG results: ABG ABG pH 7.43 pH Units (7.32-7.45) 06/05/19 02:47 ABG pCO2 60 mmHg (35-45) H 06/05/19 02:47 ABG pO2 73 mmHg (85-104) L 06/05/19 02:47 ABG O2 Saturation 94 % (95-98) L 06/05/19 02:47 PT/INR, D-dimer PT 15.2 Seconds (9.4-12.1) H 06/05/19 09:00 Consult Discharge Plan - Plan Instructions: Heart Failure (DC), COPD Exacerbation, Airset Molder (GEN) Additional Instructions: Follow-up appointments: If there is not an appointment listed below, please call your physician and schedule a follow-up appointment. If you have congestive heart failure and your symptoms return, make an appointment with your physician. Medication List: Carry an up to date list of medications you are taking at all time. We have given you an updated medication list including any new medications that you have been prescribed. Please provide that list to your primary provider Symptoms: If your condition changes or you experience any of the following symptoms, notify your physician immediately: Unusual or worsening pain, fever, persistent nausea and vomiting, bleeding, increase in swelling (especially in your legs), sudden weight gain, extreme dizziness, chest pain, increased drainage or redness from a wound or incision. Go to the emergency department if you experience a problem with breathing. Weights: If you have a history of swelling or shortness of breath, weigh yourself daily and notify your physician if you have a weight gain of two or more pounds in one day or 5 or more pounds in a week. If you experience any of the warning signs for stroke: Sudden numbness or weakness of the face, arm or leg; especially on one side of the body, sudden confusion, trouble speaking or understanding, sudden trouble seeing in one or both eyes, sudden trouble walking, dizziness, loss of balance or coordination, sudden sever headache with no cause; Call 911 or go to the emergency room. Stroke is a medical emergency. Some risk factors for stroke: Age, cigarette smoking, diabetes, excessive alcohol consumption, family history, high blood pressure, overweight, physical inactivity, prior stroke, heart attack, diagnosis of carotid artery stenosis or other artery disease. If you smoke, STOP: Smoking or tobacco use significantly increases your risk of heart and lung disease. Your chance of disease greatly increases if you continue to smoke. For more information, call the [place] tobacco quit line for smoking cessation 2-257-PHTQ-NOW ( ) Referrals: Tonja Cook CNP [Primary Care Provider] - Prescriptions: Doxycycline 100 mg PO BID #16 capsule Transmission Status: Received by [facility]/pharmacy #[id number]
--- NOTE | 2019-06-07 13:52 | Discharge Summary ---
Orders not resulted at time of discharge: Pending orders 06/05/19 05:01 Culture,Blood [BC] Routine 06/05/19 14:22 Sputum Culture [Culture,Sputum with Gram Stain] [] Routine Date of Encounter: 06/07/19 Time of Encounter: 13:50 - Discharge Diagnosis (1) Acute and chronic respiratory failure Priority: Primary Status: Acute Qualifiers: Qualified Code(s): J96.21 - Acute and chronic respiratory failure with hypoxia; J96.22 - Acute and chronic respiratory failure with hypercapnia (2) Mobitz (type) II atrioventricular block Priority: Secondary Status: Acute (3) CHF exacerbation Priority: Secondary Status: Acute Qualifiers: Qualified Code(s): I50.9 - Heart failure, unspecified (4) Bradycardia Priority: Secondary Status: Acute (5) Pneumonia Priority: Secondary Status: Acute Qualifiers: Qualified Code(s): J18.9 - Pneumonia, unspecified organism (6) Acute metabolic encephalopathy Priority: Secondary Status: Acute (7) CKD (chronic kidney disease) stage 3, GFR 30-59 ml/min Priority: Secondary Status: Chronic (8) Cirrhosis of liver Priority: Secondary Status: Chronic Qualifiers: Qualified Code(s): K74.60 - Unspecified cirrhosis of liver (9) Follicular lymphoma Priority: Secondary Status: Chronic Qualifiers: Qualified Code(s): C82.90 - Follicular lymphoma, unspecified, unspecified site (10) Type 2 diabetes mellitus Priority: Secondary Status: Chronic Qualifiers: Qualified Code(s): E11.59 - Type 2 diabetes mellitus with other circulatory complications; 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 Cross is a 74 year old male with PMH of severe aortic stenosis, CHF, follicular lymphoma, recurrent pleural effusions with Pleurx, COPD, DM II, CKD, cirrhosis presenting with acute hypoxemic respiratory failure. Patient was placed on BiPAP on arrival. CXR showed vascular congestion and patient was diuresed. Patient did develop bradycardia to the 20s with second degree AV block. Patient was given atropine and his nadolol was stopped. His HR improved. Cardiology was consulted and recommended a pacemaker as well as possile TAVR. Patient declined these procedures. Palliative care was consulted and along with family the decision was made for patient to be discharged home on hospice when stable. Patient was initially on zosyn for pneumonia which was deescalated to oral doxycycline on day 2 after improvement. Patient was clinically stable on his home 3L NC on day of discharge. Plan is to d/c home with home hospice. He will continue doxy to complete course. Discharge discussed with: patient - Time Spent with Patient Total time spent providing and/or coordinating discharge services: 40 minutes - Discharge Medications Prescriptions: New Prochlorperazine Maleate [Compazine] 10 mg PO Q6HR PRN tablet PRN Reason: Nausea And Vomiting Doxycycline 100 mg PO BID #16 capsule Ondansetron ODT [Zofran ODT] 4 mg PO Q6H PRN tab.rapdis PRN Reason: Nausea Continued Aspirin 81 mg PO DAILY Docusate [Colace] 100 mg PO DAILY PRN PRN Reason: Constipation Insulin Regular, Human [Novolin R] 0 - 18 unit SQ TIDWM Multivitamin [One Daily] 1 tab PO DAILY Pantoprazole Sodium [Protonix] 40 mg PO DAILY Spironolactone [Aldactone] 100 mg PO DAILY Tamsulosin HCl [Flomax] 0.4 mg PO DAILY Cholecalciferol (Vitamin D3) [Dialyvite Vitamin D] 5,000 units PO DAILY Guaifenesin [Mucinex] 600 mg PO BID PRN PRN Reason: Congestion [place]-3S/Dha/Epa/Fish Oil [Fish Oil 1,200 mg Softgel] 1,200 mg PO BID LORazepam [Ativan] 0.5 mg PO BID PRN PRN Reason: Anxiety Furosemide [Lasix] 40 mg PO BIDDIURETIC #60 tablet Ascorbic Acid [Vitamin C] 1,000 mg PO DAILY Cinnamon Bark [Cinnamon] 1,000 mg PO DAILY Fluticasone/Vilanterol [Breo Ellipta 200-25 Mcg INH] 1 puff IH DAILY Insulin Glargine,Hum.rec.anlog [Basaglar Kwikpen U-100] 20 unit SQ HS Oxycodone HCl 15 mg PO BID PRN PRN Reason: Pain DiphenhydraMINE [Benadryl] 25 mg PO Q6HR PRN PRN Reason: Allergy Symptoms Gabapentin [Neurontin] 300 mg PO TID Discontinued Nadolol 20 mg PO DAILY Home Medications: Aspirin 81 mg PO DAILY 11/06/18 [History] Docusate [Colace] 100 mg PO DAILY PRN 11/06/18 [History] Insulin Regular, Human [Novolin R] 0 - 18 unit SQ TIDWM 11/06/18 [History] Multivitamin [One Daily] 1 tab PO DAILY 11/06/18 [History] Pantoprazole Sodium [Protonix] 40 mg PO DAILY 11/06/18 [History] Spironolactone [Aldactone] 100 mg PO DAILY 11/06/18 [History] DiphenhydraMINE [Benadryl] 25 mg PO Q6HR PRN 11/26/18 [History] Gabapentin [Neurontin] 300 mg PO TID 11/26/18 [History] Tamsulosin HCl [Flomax] 0.4 mg PO DAILY 11/26/18 [History] Cholecalciferol (Vitamin D3) [Dialyvite Vitamin D] 5,000 units PO DAILY 02/27/19 [History] Guaifenesin [Mucinex] 600 mg PO BID PRN 02/27/19 [History] [place]-3S/Dha/Epa/Fish Oil [Fish Oil 1,200 mg Softgel] 1,200 mg PO BID 02/27/19 [History] LORazepam [Ativan] 0.5 mg PO BID PRN 03/18/19 [History] Furosemide [Lasix] 40 mg PO BIDDIURETIC #60 tablet 03/22/19 [Rx] Ascorbic Acid [Vitamin C] 1,000 mg PO DAILY 03/25/19 [History] Cinnamon Bark [Cinnamon] 1,000 mg PO DAILY 03/25/19 [History] Fluticasone/Vilanterol [Breo Ellipta 200-25 Mcg INH] 1 puff IH DAILY 03/25/19 [History] Insulin Glargine,Hum.rec.anlog [Basaglar Kwikpen U-100] 20 unit SQ HS 03/25/19 [History] Oxycodone HCl 15 mg PO BID PRN 06/04/19 [History] Doxycycline 100 mg PO BID #16 capsule 06/07/19 [Rx] Ondansetron ODT [Zofran ODT] 4 mg PO Q6H PRN tab.rapdis 06/07/19 [Rx] Prochlorperazine Maleate [Compazine] 10 mg PO Q6HR PRN tablet 06/07/19 [Rx] Allergies/Adverse Reactions: Allergy/AdvReac Type Severity Reaction Status Date / Time chlorhexidine Allergy Blister Verified 06/04/19 22:11 band-aids AdvReac Blister Uncoded 03/25/19 14:48 Date of admission: 06/05/19 04:06 Primary care physician: Tonja Cook Consults: 06/05/19 04:33 Consult to Cardiology [CONS] Routine Comment: Consulting Provider: Cardiology [place] Reason for Consult: patient admitted for hypoxic respiratory failure developing bradycardic episodes down to the high 20s and 30s with decrease in mentation Call Completed: No 06/05/19 08:24 Consult to Pulmonology [CONS] Routine Consulting Provider: [facility] [place] Reason for Consult: mobitz type II Call Completed: Yes 06/06/19 11:38 Consult to Palliative Care [CONS] Routine Comment: Consulting Provider: Palliative Care [place] Reason for Consult: discuss hospice Call Completed: Yes Discharging clinician: Augustus Whittaker Anticipated date of discharge: 06/07/19 - Constitutional Vitals: Temp Pulse Resp BP Pulse Ox 97.5 F L 57 15 104/60 93 06/07/19 11:08 06/07/19 11:08 06/07/19 11:08 06/07/19 11:08 06/07/19 11:08 General appearance: Present: A&O X 3, no acute distress, answers questions appropriately Exam: . General: Awake alert oriented 3, chronically ill-appearing, conversant, pleasant Skin is pale, warm and dry OP dry Neck supple Lungs: coarse breath sounds bilaterally, no wheezes. Markedly diminished breath sounds bilateral lung [place]ett. Heart regular rate and rhythm with systolic ejection murmur best heard at left second intercostal space Abdomen is soft, mildly distended, nontender, normoactive bowel sounds Stromally show trace edema, cap refill less than 2.5 seconds, distal pulses intact Neurlogical is grossly nonfocal - Patient Status Disposition: Hospice - Home Condition: Fair Overall status at discharge: patient is progressing back to baseline - Discharge Instructions Follow Up With: Tonja Cook, PRESS CUTTER [Primary Care Provider] - - Diet and Activity Activity: resume usual activities as tolerated Diet: advance to your usual diet
--- NOTE | 2019-06-07 14:06 | Physician Discharge Referral ---
Home Health/Hosp Referral Info Transfer to: Hospice Provider in Charge Post Discharge: Other - Diagnosis (1) Acute and chronic respiratory failure Priority: Primary Status: Acute (2) Mobitz (type) II atrioventricular block Priority: Secondary Status: Acute (3) CHF exacerbation Priority: Secondary Status: Acute (4) Bradycardia Priority: Secondary Status: Acute (5) Pneumonia Priority: Secondary Status: Acute (6) Acute metabolic encephalopathy Priority: Secondary Status: Acute (7) CKD (chronic kidney disease) stage 3, GFR 30-59 ml/min Priority: Secondary Status: Chronic (8) Cirrhosis of liver Priority: Secondary Status: Chronic (9) Follicular lymphoma Priority: Secondary Status: Chronic (10) Type 2 diabetes mellitus Priority: Secondary Status: Chronic (11) DVT prophylaxis Priority: Secondary Status: Acute - Respiratory Orders Oxygen / L per min (3) Smoking Cessation: Smoking cessation has been advised. For more information, call the [place] Tobacco Quit Line at 3-952-KQYJ-NOW. - Diet/Nutrition Diet/Nutrition Orders: Regular - Activity Activity Orders: Up ad rob - Services Needed Following services are medically necessary services: Nursing - Transfer Medications Prescriptions: Doxycycline 100 mg PO BID #16 capsule Transmission Status: Pending to [facility]/pharmacy #[id number] Home Medications: Aspirin 81 mg PO DAILY 11/06/18 [History] Docusate [Colace] 100 mg PO DAILY PRN 11/06/18 [History] Insulin Regular, Human [Novolin R] 0 - 18 unit SQ TIDWM 11/06/18 [History] Multivitamin [One Daily] 1 tab PO DAILY 11/06/18 [History] Pantoprazole Sodium [Protonix] 40 mg PO DAILY 11/06/18 [History] Spironolactone [Aldactone] 100 mg PO DAILY 11/06/18 [History] DiphenhydraMINE [Benadryl] 25 mg PO Q6HR PRN 11/26/18 [History] Gabapentin [Neurontin] 300 mg PO TID 11/26/18 [History] Tamsulosin HCl [Flomax] 0.4 mg PO DAILY 11/26/18 [History] Cholecalciferol (Vitamin D3) [Dialyvite Vitamin D] 5,000 units PO DAILY 02/27/19 [History] Guaifenesin [Mucinex] 600 mg PO BID PRN 02/27/19 [History] [place]-3S/Dha/Epa/Fish Oil [Fish Oil 1,200 mg Softgel] 1,200 mg PO BID 02/27/19 [History] LORazepam [Ativan] 0.5 mg PO BID PRN 03/18/19 [History] Furosemide [Lasix] 40 mg PO BIDDIURETIC #60 tablet 03/22/19 [Rx] Ascorbic Acid [Vitamin C] 1,000 mg PO DAILY 03/25/19 [History] Cinnamon Bark [Cinnamon] 1,000 mg PO DAILY 03/25/19 [History] Fluticasone/Vilanterol [Breo Ellipta 200-25 Mcg INH] 1 puff IH DAILY 03/25/19 [History] Insulin Glargine,Hum.rec.anlog [Basaglar Kwikpen U-100] 20 unit SQ HS 03/25/19 [History] Oxycodone HCl 15 mg PO BID PRN 06/04/19 [History] Doxycycline 100 mg PO BID #16 capsule 06/07/19 [Rx] Ondansetron ODT [Zofran ODT] 4 mg PO Q6H PRN tab.rapdis 06/07/19 [Rx] Prochlorperazine Maleate [Compazine] 10 mg PO Q6HR PRN tablet 06/07/19 [Rx] Allergies/Adverse Reactions: Allergy/AdvReac Type Severity Reaction Status Date / Time chlorhexidine Allergy Blister Verified 06/04/19 22:11 band-aids AdvReac Blister Uncoded 03/25/19 14:48 Certification: Further, I certify that my clinical findings support that this patient is home bound (i.e. absences from home require considerable and taxing effort and are for medical reasons or restoration services or infrequently or short duration when for other reasons) because: Homebound Reason: Leaving home requires considerable and taxing effort due to condition Attestation: My signature below is to certify that this patient is under my care and that I, or nurse practitioner, or a physician's housing assistant property manager working with me, has a [id number] encounter with this patient.
[2019-06-07 14:46] VITALS: BP 107/57
== END 2019-06-07 17:15 | disposition hospice, home (50) | DRG 871 ==
LOC: 3BNU 21:55 → EMEROOARM 21:55 → 3BNU 06-05 02:01 → ICNU 06-05 03:27 → SUATTDRO 06-05 04:06 → 3ANU 06-06 17:10
PROVIDERS: ADMIT Internal Medicine; ATTEND Family Medicine